=== PATIENT | female | born 1945 | race Caucasian/White ===

== ENCOUNTER 2023-03-11 00:58 | Emergency (ER) | payer OTHER ==
--- OUTSIDE RECORDS SUMMARY | 2023-03-11 01:13 | XMS REPORT | Continuity of Care Document ---
:1945 Author Organization [facility] t Address [address] [place] [address] Care Team Providers Name Role Phone Marco Antonio Vargas MD, Saul Primary Care Physician Charles Bernard Jr Attending Clinician Gay Davis Attending Clinician Sabas Merrill II Attending Clinician IRVIN GUNDERSON Attending Clinician Unavailable LINO CURRAN Attending Clinician Unavailable Irvin Gonzalez Attending Clinician Doctor Unassigned, [place] Attending Clinician Unavailable Mio Watts Attending Clinician Tasneem Goodwin Attending Clinician Donna Henriquez Attending Clinician DONNA HENRIQUEZ Attending Clinician Unavailable Jason Colin Attending Clinician JASON COLIN Attending Clinician Unavailable OSCAR CARABALLO Attending Clinician Unavailable JO DOVE Attending Clinician Unavailable Srinivas Yates Attending Clinician Levi Nguyen Attending Clinician Gerald Michel Attending Clinician Benji Lujna Attending Clinician IRVIN GUNDERSON Admitting Clinician Unavailable OSCAR CARABALLO Admitting Clinician Unavailable Payers Payer Name Policy Type Policy Number Effective Date Expiration Date S chris [place] [id number] 2020 [facility]ARE 00:00:00 [facility] [place] PPO [facility] [id number] 2021 [facility]00 [facility] Problems Condition Condition Condition Status Onset Resolution Last Treating Co mments Source Name Details Category Date Date Treatment Clinician Date R05 - R05 - Diagnosis Active 2021-02-07 Mem oria COUGH COUGH 02-05 13:06:00 l Active 00:01: Luan 02/05/2021 00 BRIA Gonzalez XRAY XRAY Diagnosis Active 2020-10-19 Mem oria Active 2-04 09:11:00 l 09/20/2020 00:00: Ramsey berry 00 [place] K44.9/R74. K44.9/R74 Diagnosis Active 2019-082020-06-19 Memoria 0/R05/J39. .0/R05/J39 0- 09:46:00 l 2 .2 Active 00:00: Luan 06/12/2020 00 [place] Z12.31 - Z12.31 - Diagnosis Active 2020-05-21 Memoria ENCNTR ENCNTR 05-08 10:13:00 l SCREEN SCREEN 00:01: Luan MAMMOGRAM MAMMOGRAM 00 FOR MA FOR MA Active 05/08/2020 BRIA Gonzalez DX; DX; Diagnosis Active 2019-10-10 Mem oria R74.0=NONS R74.0=NONS 2-19 10:54:00 l PECIFIC PECIFIC 00:00: Luan ELEVATION ELEVATION 00 OF LEVEL OF LEVEL Active 10/05/2019 [facility] Rheumatoid Rheumatoid Disease Active Overview : Methodi arthritis arthritis 1-29 Formattin s t without without 00:00: g of this Hospi ta rheumatoid rheumatoid 00 note l factor, factor, might be right right different wrist wrist from the original. Added automatic ally from request for surgery [id number] DRUJ DRUJ Disease Active Overview: Method i (distal (distal 09-[address] radioulnar radioulnar 00:00: g of this Hospita joint) joint) 00 note l arthrosis, arthrosis, might be primary, primary, different right right from the original. Added automatic ally from request for surgery [id number] Strain of Strain of Disease Active Overview: Methodi extensor extensor 09-[address] muscle, muscle, 00:00: g of this Hospi ta fascia and fascia and 00 note l tendon of tendon of might be unspecifie unspecifie different d finger d finger from the at wrist at wrist original. 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 Active 09/21/2018 [facility] NECK, NECK, Diagnosis Active 2018-09-12 Mem oria SHOULDER SHOULDER 09-12 10:15:00 l ARM PAIN ARM PAIN 00:00: Ramsey n Active 00 09/12/2018 [facility] CHEST PAIN CHEST Diagnosis Active 2016-082017-08-07 Memoria PAIN 2- 11:06:00 l Active 00:00: Luan [facility] M67.40 - M67.40 - Diagnosis Active 2016-09-22 Memoria "GANGLION, "GANGLION, 09-15 14:57:00 l UNSPECIFIE UNSPECIFIE 00:01: Glenn shah D SITE" D SITE" 00 Active 09/15/2016 [facility] [place] Anaphylaxi Problem Active [facility] Chest Problem Active [facility] discomfort [facility] No known No known Disease Unive rs active active ity of problems problems [facility] Hypertensi Hypertens Problem Active 2017-08-17 Memoria ve annie 01:07:22 l disorder, disorder, Herm kim systemic systemic arterial arterial (disorder) (disorder) Active Problem 08/17/2017 Medical Group Hypothyroi Hypothyro Problem Active 2017-08-10 Memoria dism idism 04:04:15 l (disorder) (disorder) He rmann Active Problem 08/10/2017 [facility] [place] Acute Acute Problem Active 2022-07-17 Memor ia laryngitis laryngitis 09:00:50 l (disorder) (disorder) He rmann Active Problem 07/17/2022 Medical Group,[facility] Primary Care [place] Acute Acute Problem Active 2022-07-17 Memor ia pharyngiti pharyngiti 09:00:50 l s s Luan (disorder) (disorder) Active Problem 07/17/2022 [facility] Primary Care [place] Angina Angina Problem Active 2022-07-17 Demetrio jaime (disorder) (disorder) 09:00:50 l Active [place] Problem 07/17/2022 [facility] Oste[facility]r Osteoarth Problem Active 2022-07-17 Memoria itis of ritis of 09:00:50 l hip hip Luan (disorder) (disorder) Active Problem 07/17/2022 [facility] BRIA [facility] Osteoarthr Osteoarth Problem Active 2022-07-17 Memoria itis of ritis of 09:00:50 l knee knee Luan (disorder) (disorder) Active Problem 07/17/2022 [facility] Foul Foul Problem Active 2022-07-17 Memor ia smelling smelling 09:00:50 l urine urine [place] (finding) (finding) Active Problem 07/17/2022 Medical Group,[facility], [facility] Gastroesop Problem Active 2022-07-17 [facility] Gastroesop 09:00:50 l reflux hageal [place] disease reflux with disease esophagiti with s esophagiti (disorder) s (disorder) Active Problem 07/17/2022 Medical Group,[facility], [facility] History of History Problem Active 2022-07-17 Memoria - gastric of - 09:00:50 l ulcer gastric [place] (context-d ulcer ependent (context-d category) ependent category) Active Problem 07/17/2022 Medical Group,[facility], [facility] Hypertensi Hypertens Problem Active 2022-07-17 Memoria ve heart annie heart 09:00:50 l disease disease [place] (disorder) (disorder) Active Problem 07/17/2022 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 Medical Group,[facility], [facility] 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 [facility] yroidism Hypoparath 09:00:50 l (disorder) yroidism Herm kim (disorder) Active Problem 07/17/2022 Medical Group,[facility], [facility] Immunosupp Problem Active 2022-07-17 M emoria ression Immunosupp 09:00:50 l (finding) ression Ramsey n (finding) Active Problem 07/17/2022 Medical Group,[facility] Increased Problem Active 2022-07-17 Me moria frequency Increased 09:00:50 l of frequency Luan urination of (finding) urination (finding) Active Problem 07/17/2022 [facility] Group,[facility] Influenza- Influenza Problem Active 2022-07-17 Memoria like -like 09:00:50 l symptoms symptoms Ramsey n (finding) (finding) Active Problem 07/17/2022 [facility] Primary Care [place] Mixed Mixed Problem Active 2022-07-17 Memor ia hyperlipid hyperlipid 09:00:50 l emia emia [place] (disorder) (disorder) Active Problem 07/17/2022 [facility] Obesity Obesity Problem Active 2022-07-17 M emoria (disorder) (disorder) 09:00:50 l Active Luan Problem 07/17/2022 [facility] Postherpet Problem Active 2022-07-17 M emoria ic Postherpet 09:00:50 l neuralgia ic Luan (disorder) neuralgia (disorder) Active Problem 07/17/2022 Medical Group,[facility] Post-opera Problem Active 2022-07-17 M [facility] tive Post-opera 09:00:50 l hypothyroi tive Ramsey n dism hypothyroi (disorder) dism (disorder) Active Problem 07/17/2022 [facility], BRIA [facility] Recurrent Recurrent Problem Active 2022-07-17 Memoria urinary urinary 09:00:50 l tract tract Luan infection infection (disorder) (disorder) Active Problem 07/17/2022 Medical Group,[facility] Rheumatoid Rheumatoi Problem Active 2022-07-17 Memoria arthritis d 09:00:50 l (disorder) arthritis Her malloy (disorder) Active Problem 07/17/2022 [facility], BRIA [facility] Seasonal Seasonal Problem Active 2022-07-17 Memoria allergic allergic 09:00:50 l rhinitis rhinitis Ramsey n (disorder) (disorder) Active [facility]17[facility]20[facility] Spinal Spinal Problem Active 2022-07-17 Demetrio jaime stenosis stenosis 09:00:50 l in in Luan cervical cervical region region (disorder) (disorder) Active Problem 07/17/2022 [facility], BRIA [facility] Urinary Urinary Problem Active 2022-07-17 Me moria incontinen incontinen 09:00:50 l ce ce [place] (finding) (finding) Active Problem 07/17/2022 Medical Group,[facility] Varicose Varicose Problem Active 2022-07-17 Memoria veins of veins of 09:00:50 l lower lower Luan extremity extremity (disorder) (disorder) Active Problem 07/17/2022 Medical Group, Dave Gonzalez [place], Dave Scott [facility] Encounter Problem 2020-05-23 Me moria for Encounter 22:52:29 l screening for [place] mammogram screening for mammogram malignant for neoplasm malignant of breast neoplasm of breast 05/23/2020 BRIA Gonzalez Impingemen Impingeme Problem 2019-04-06 Memoria t syndrome nt 11:23:26 l of left syndrome [place] shoulder of left shoulder 04/06/2019 Dave Gonzalez Primary Primary Problem 2019-04-06 Ma moriashish osteoarthr osteoarthr 11:23:26 l itis, left itis, left He rmann shoulder shoulder 04/06/2019 BRIA Gonzalez Abnormal Abnormal Problem 2019-04-06 Memoria findings findings 11:23:26 l on on [place] diagnostic diagnostic imaging of imaging of other other specified specified body body structures structures 9 BRIA [place] Spinal Spinal Problem 2019-04-01 Demetrio jaime stenosis, stenosis, 12:20:48 l site site [place] unspecifie unspecifie d d 04/01/2019 [facility] Other long Other Problem 2019-04-01 emoria term prison 12:20:48 l (current) (current) Herm kim drug drug therapy therapy 04/01/2019 [facility] 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 Problem 2019-04-01 Memoria (current) (current) 12:20:48 l use of use of [place] aspirin aspirin 04/01/2019 [facility] Allergy Allergy Problem 2019-04-01 Ma moria status to status to 12:20:48 l sulfonamid sulfonamid He rmann es status es status 04/01/2019 [facility] Fever Fever Problem Resolve 2022-05-29 Mem oria (finding) (finding) d 02:44:13 l Resolved Luan Problem 05/29/2022 Medical Group,[facility], BRIA Gonzalez Sore Sore Problem Resolve 2022-05-29 Demetrio jaime throat throat d 02:44:13 l symptom symptom [place] (finding) (finding) Resolved Problem 05/29/2022 Medical Group, BRIA Gonzalez History of Past Illness Condition Condition Condition Status Onset Resolution Last Treating Co mments Source Name Details Category Date Date Treatment Clinician Date General General Diagnosis 2021-082022-07-17 2022-07-17 Memoria finding of finding of 09-13 09:00:50 09:00:50 l observatio observatio 18:00: He rmann n of n of 00 patient patient (finding) (finding) 2022 Diagnosis 07/17/2022 Medical Group Acute Acute Diagnosis 2021-082022-07-17 2022-07-17 Memoria bronchitis bronchitis 09-13 09:00:50 09:00:50 l (disorder) (disorder) 17:21: He rmann 2022 00 Diagnosis 07/17/2022 Medical Group,[facility] Dave Scott [facility] Primary [facility] [place] Mixed Mixed Problem 2021-10-25 2021-10-25 M emoria hyperlipid hyperlipid 10-22 02:36:12 02:36:12 l emia emia 22:00: Luan 10/22/2021 00 Medical Group Unspecifie Unspecifi Problem 2021-10-25 2021-10-25 Memoria d abnormal ed 10-22 02:36:12 02:36:12 l findings abnormal 21:59: Ramsey n in urine findings 00 in urine 10/22/2021 10/25/2021 Medical Group Angina Angina Problem 2021-10-25 2021-10-25 Memoria pectoris, pectoris, 10-22 02:36:12 02:36:12 l unspecifie unspecifie 21:59: He rmann d d 00 10/22/2021 10/25/2021 [facility] Group Hypertensi Hypertens Problem 2021-10-25 2021-10-25 Memoria ve heart annie heart 10-22 02:36:12 02:36:12 l disease disease 21:59: [place] without without 00 heart heart failure failure 10/22/2021 10/25/2021 Medical Group Postproced Postproce Problem 2021-10-25 2021-10-25 Memoria ural dural 3-08 02:36:12 02:36:12 l hypothyroi hypothyroi 21:59: He rmann dism dism 00 10/22/2021 10/25/2021 Medical Group Rheumatoid Rheumatoi Problem 2021-10-25 2021-10-25 Memoria arthritis, d 3- 02:36:12 02:36:12 l unspecifie arthritis, 21:59: He rmann d unspecifie 00 d 10/22/2021 10/25/2021 [facility] Postproced Postproce Problem 2021-10-25 2021-10-25 Memoria ural dural 10-22 02:36:12 02:36:12 l hypoparath hypoparath 21:59: He rmann yroidism yroidism 00 10/22/2021 10/25/2021 Medical Group Immunodefi Immunodef Problem 2021-10-25 2021-10-25 Memoria ciency, iciency, 10-22 02:36:12 02:36:12 l unspecifie unspecifie 21:59: He rmann d d 00 10/22/2021 10/25/2021 Medical Group Cystocele, Cystocele Problem 2021-10-25 2021-10-25 Memoria unspecifie , 3 02:36:12 02:36:12 l d unspecifie 21:48: Ramsey n d 00 10/22/2021 10/25/2021 Medical Group Other Other Problem 2021-10-25 2021-10-25 Memoria postherpet postherpet 10-22 02:36:12 02:36:12 l ic nervous ic nervous 21:47: He rmann system system 00 involvemen involvemen t t 10/22/2021 10/25/2021 Medical Group Other Other Problem 2020-05-05 2020-05-05 Memoria seasonal seasonal 05-04 22:10:32 22:10:32 l allergic allergic 17:00: Ramsey berry rhinitis rhinitis 00 05/04/2020 05/05/2020 Medical Group Other Other Problem 2020-05-05 2020-05-05 Memoria chronic chronic 05-03 22:10:32 22:10:32 l sinusitis sinusitis 17:00: Laly alvarez 05/03/2020 00 05/05/2020 Medical Group Pain in Pain in Problem 2018-082019-08-10 2019-08-10 Memoria right hand right hand 10-09 22:29:50 22:29:50 l 08/08/2019 18:00: Ramsey berry 08/10/2019 00 [facility] Pain in Pain in Problem 2018-082019-08-10 2019-08-10 Memoria right right 10-09 22:29:50 22:29:50 l wrist wrist 18:00: Luan 08/08/2019 00 08/10/2019 [facility] Complete Complete Problem 2019-04-06 2019-04-06 Memoria rotator rotator 2 11:23:26 11:23:26 l cuff tear cuff tear 06:02: Herm kim or rupture or rupture 07 of left of left shoulder, shoulder, not not specified specified as as traumatic traumatic 09/21/2018 9 BRIA [place] Impingemen Impingeme Problem 2018-2019-04-01 2019-04-01 Memoria t syndrome nt 09-12 12:20:48 12:20:48 l of syndrome 06:00: Luan unspecifie of 00 d shoulder unspecifie d shoulder 09/12/2018 9 [facility] Chest Chest Problem 2016-082017-08-10 2017-08-10 M emoria pain, pain, 10-08 04:04:15 04:04:15 l unspecifie unspecifie 06:00: He rmann d d 00 08/07/2017 7 [facility] Headache Headache Problem 2016-082017-08-10 2017-08-10 Memoria 08/07/201710-08 04:04:15 04:04:15 l 08/10/2017 06:00: Ramsey berry 00 [place] Allergies, Adverse Reactions, Alerts Allergy Allergy Status Severity Reaction(s) Onset Inactive Treating Comm ents Source Name Type Date Date Clinician Sulfa Allergy Active [facility] Antibiot e 00 Medical ics[facility] Center SULFA Drug Active Low Hives Univers (SULFONA Class 1-28 ity of MIDE 00:00: [place] ANTIBIOT 00 Medical ICS) Branch Sulfa Drug Active Rash Univers (Sulfona Allergy 1-28 ity of mide 00:00: [place] Antibiot 00 Medical ics) Branch Sulfa Propensi Active GI Methodi (Sulfona ty to Intolerance 1-28 st mide adverse 00:00: Hospita Antibiot reaction 00 l ics) s to drug sulfa sulfa Active Memoria drugs drugs l Luan Macrobid Macrobid Active Memori a l Luan Sulfa DA Active [facility] Patient Antibiot Medical ics[facility] Family History Family Member Diagnosis Comments Start Date Stop Date Source Natural father Cancer [facility] Natural mother Cancer [facility] Social History Social Habit Start Date Stop Date Quantity Comments Source Gender identity 2019-09-10 Identifies as Method ist 17:57:50 female gender Hospital (finding) Sexual orientation 2019-09-10 Heterosexual Meth odist 17:57:50 (finding) Hospital History of tobacco [facility] use Patient Medica [facility] Exposure to Not sure University of SARS-CoV-2 (event) [facility] Alcohol intake 2019-10-12 2019-10-12 Lifetime Evangelical 00:00:00 00:00:00 non-drinker Hospital (finding) Tobacco use and 2019-09-13 2019-09-13 Smokeless tobacco Me thodist exposure 00:00:00 00:00:00 non-user Hospital History of Social 2019-09-13 2019-09-[address] function 00:00:00 00:00:00 Hospital Sex Assigned At 1945 [address] [facility] 00:[facility] Med[facility] Center Smoking Status Start Date Stop Date Source Unknown if ever smoked [facility] Tobacco smoking status [facility] Medications Ordered Filled Start Stop Current Ordering Indication Dosage Frequency Signature Comments Components Source Medication Medication Date Date Medication? Clinician (SIG) Name Name joann 2021-08 Yes See Memori a n 250 mg 09-13 Instructio l oral tablet 17:43: ns, Take 2 Luan 00 tablets by mouth the first day then 1 tablet by mouth daily on days 2-5., X 5 day, # 6 tab, 0 Refill(s), Pharmacy: [facility], 154.94, cm, 07/14/22 11:08:00 HEALTH EDUCATOR, Height, 80.511, kg, 07/14/22 11:08:00 HEALTH EDUCATOR, Weight azithromyci 2021-08 Yes See Memori a n 250 mg 09-13 Instructio l oral tablet 17:43: ns, Take 2 Luan 00 tablets by mouth the first day then 1 tablet by mouth daily on days 2-5., X 5 day, # 6 tab, 0 Refill(s), Pharmacy: [facility], 154.94, cm, 07/14/22 11:08:00 HEALTH EDUCATOR, Height, 80.511, kg, 07/14/22 11:08:00 HEALTH EDUCATOR, Weight Tessalon 2021-08 Yes 200 mg = 1 Mem oria 200 mg oral 09-13 cap, PO, l capsule 17:25: TID, X 10 Adry nn 00 day, # 30 cap, 0 Refill(s), Pharmacy: [facility], 154.94, cm, 07/14/22 11:08:00 HEALTH EDUCATOR, Height, 80.511, kg, 07/14/22 11:08:00 HEALTH EDUCATOR, Weight Medrol 2021-08 Yes See Memoria Dosepak 4 09-13 Instructio l mg oral 17:25: ns, PO, Luan tablet 00 Take by mouth as directed on label., X 6 day, # 21 tab, 0 Refill(s), Pharmacy: [facility], 154.94, cm, 07/14/22 11:08:00 HEALTH EDUCATOR, Height, 80.511, kg, 07/14/22 11:08:00 HEALTH EDUCATOR, Weight albuterol 2021-08 Yes 2 puff, Memor ia 90 mcg/inh 09-13 INHALER, l inhalation 17:25: Q6H, PRN Her malloy aerosol 00 for SOB/cough, # 8 gm, 0 Refill(s), Pharmacy: [facility], 154.94, cm, 07/14/22 11:08:00 HEALTH EDUCATOR, Height, 80.511, kg, 07/14/22 11:08:00 HEALTH EDUCATOR, Weight Tessalon 2021-08 Yes 200 mg = 1 Mem oria 200 mg oral 09-13 cap, PO, l capsule 17:25: TID, X 10 Adry nn 00 day, # 30 cap, 0 Refill(s), Pharmacy: [facility] [place], 154.94, cm, 07/14/22 11:08:00 HEALTH EDUCATOR, Height, 80.511, kg, 07/14/22 11:08:00 HEALTH EDUCATOR, Weight Medrol 2021-08 Yes See Memoria Dosepak 4 09-13 Instructio l mg oral 17:25: ns, PO, [place] tablet 00 Take by mouth as directed on label., X 6 day, # 21 tab, 0 Refill(s), Pharmacy: [facility] [place], 154.94, cm, 07/14/22 11:08:00 HEALTH EDUCATOR, Height, 80.511, kg, 07/14/22 11:08:00 HEALTH EDUCATOR, Weight albuterol 2021-08 Yes 2 puff, Memor ia 90 mcg/inh 09-13 INHALER, l inhalation 17:25: Q6H, PRN Her malloy aerosol 00 for SOB/cough, # 8 gm, 0 Refill(s), Pharmacy: [facility], 154.94, cm, 07/14/22 11:08:00 HEALTH EDUCATOR, Height, 80.511, kg, 07/14/22 11:08:00 HEALTH EDUCATOR, Weight carvedilol 2021-08 Yes 25 mg = 1 Me moria 25 mg oral 09-13 tab, PO, l tablet 17:05: BID, 0 Luan 00 Refill(s) carvedilol 2021-08 Yes 25 mg = 1 Me moria 25 mg oral 09-13 tab, PO, l tablet 17:05: BID, 0 [place] 00 Refill(s) Breo 2021-08 Yes 0 Memoria Ellipta 100 0-10 Refill(s) l mcg-25 mcg 15:45: [place] inhalation 00 powder Breo 2021-08 Yes 0 Memoria Ellipta 100 0-10 Refill(s) l mcg-25 mcg 15:45: [place] inhalation 00 powder calcitriol Yes = 1 cap, Mem oria 0.5 mcg 6-06 PO, Daily, l oral 18:48: # 90 cap, Luan capsule 00 3 Refill(s), Pharmacy: [facility], 154.94, cm, 12/18/21 13:14:00 CDT, Height, 79.773, kg, 12/18/21 13:14:00 CDT, Weight calcitriol Yes = 1 cap, Mem oria 0.5 mcg 6-06 PO, Daily, l oral 18:48: # 90 cap, [place] capsule 00 3 Refill(s), Pharmacy: [facility], 154.94, cm, 12/18/21 13:14:00 CDT, Height, 79.773, kg, 12/18/21 13:14:00 CDT, Weight Vantin 200 0 No 200 mg = 1 M emoria mg oral 5-03 tab, PO, l tablet 22:38: Q12H, X 10 Adry nn 00 day, # 20 tab, 0 Refill(s), Pharmacy: [facility], 154.94, cm, 10/22/21 15:20:00 HEALTH EDUCATOR, Height, 82.301, kg, 10/22/21 15:20:00 HEALTH EDUCATOR, Weight Vantin 200 0 No 200 mg = 1 M emoria mg oral 5-03 tab, PO, l tablet 22:38: Q12H, X 10 Adry nn 00 day, # 20 tab, 0 Refill(s), Pharmacy: [facility], 154.94, cm, 10/22/21 15:20:00 HEALTH EDUCATOR, Height, 82.301, kg, 10/22/21 15:20:00 HEALTH EDUCATOR, Weight Estrace 0 Yes See Memoria Vaginal 4-11 Instructio l Cream 0.1 21:10: ns, apply Her malloy mg/g 00 pea size amount to urethra and vagina nightly for 2 weeks and then 3xweek. May dispose of applicator ., # 43 gm, 3 Refill(s), Pharmacy: [facility], 154.94, cm, 10/22/21 15:20:00 HEALTH EDUCATOR, Height, 82.301, kg, 10/22/21 1... Estrace 2021-0 Yes See Memoria Vaginal 4-11 Instructio l Cream 0.1 21:10: ns, apply Her malloy mg/g 00 pea size amount to urethra and vagina nightly for 2 weeks and then 3xweek. May dispose of applicator ., # 43 gm, 3 Refill(s), Pharmacy: [facility], 154.94, cm, 10/22/21 15:20:00 HEALTH EDUCATOR, Height, 82.301, kg, 10/22/21 1... Amoxicillin 2021-0 Yes 875 mg = 1 Memoria 875 MG / 3-11 tab, PO, l Clavulanate 11:21: BID, X 10 H ermann 125 MG Oral 00 day, # 20 Tablet tab, 0 [Augmentin Refill(s), 875-mg] Pharmacy: [facility], 154.94, cm, 10/22/21 15:20:00 HEALTH EDUCATOR, Height, 82.301, kg, 10/22/21 15:20:00 HEALTH EDUCATOR, Weight Amoxicillin 0 Yes 875 mg = 1 Memoria 875 MG / 3-11 tab, PO, l Clavulanate 11:21: BID, X 10 H ermann 125 MG Oral 00 day, # 20 Tablet tab, 0 [Augmentin Refill(s), 875-mg] Pharmacy: [facility], 154.94, cm, 10/22/21 15:20:00 HEALTH EDUCATOR, Height, 82.301, kg, 10/22/21 15:20:00 HEALTH EDUCATOR, Weight Cranberry 0 Yes 1 tab, PO, Me moria oral tablet 3-08 Daily, # l 22:06: 90 tab, 4 [place] 00 Refill(s), Pharmacy: [facility], Any preferred brand cranberry concentrat e in any formulatio n is acceptable to substitute , 154.94, cm, 10/22/21 15:20:00 HEALTH EDUCATOR, Height, 82.301, kg, 10/22/21 15:20:00 HEALTH EDUCATOR, Weight Cranberry 0 Yes 1 tab, PO, Me moria oral tablet 3-08 Daily, # l 22:06: 90 tab, 4 [place] 00 Refill(s), Pharmacy: [facility], Any preferred brand cranberry concentrat e in any formulatio n is acceptable to substitute , 154.94, cm, 10/22/21 15:20:00 HEALTH EDUCATOR, Height, 82.301, kg, 10/22/21 15:20:00 HEALTH EDUCATOR, Weight ethacrynic 2021-0 Yes 25 mg = 1 Me moria acid 25 mg 3-08 tab, PO, l oral tablet 21:33: BID, # 60 H ermann 00 tab, 0 Refill(s) ethacrynic 2021-0 Yes 25 mg = 1 Me moria acid 25 mg 3-08 tab, PO, l oral tablet 21:33: BID, # 60 H ermann 00 tab, 0 Refill(s) flecainide 2021-0 Yes 100 mg = 1 M emoria 100 mg oral 3-08 tab, PO, l tablet 21:31: Q12H, 0 [place] 00 Refill(s) flecainide 2021-0 Yes 100 mg = 1 M emoria 100 mg oral 3-08 tab, PO, l tablet 21:31: Q12H, 0 [place] 00 Refill(s) gabapentin 2021-0 Yes 100 mg = 1 M emoria 100 MG Oral 3-08 cap, PO, l Capsule 21:28: TID, 0 [place] 00 Refill(s) gabapentin 2021-0 Yes 100 mg = 1 M emoria 100 MG Oral 3-08 cap, PO, l Capsule 21:28: TID, 0 [place] 00 Refill(s) Ampicillin Ampicillin Yes [address] [facility] Trihydrate Trihydrate 2-24 Daily [facility] 17:58: [facility] Epinephrine Epinephrine Yes .[address] [facility] 2-24 needed for [facility] 17:58: Anaphylaxi Patient 00 s [facility] Prednisone Prednisone 0 Yes [address] [facility] 2-24 [facility] 17:[facility]: [facility] iopamidol 0 2021- No [id number] 130mL 130 mL, Univers (ISOVUE 09-12 Intravenou ity o f 370-500 mL) 23:00: 21:45 s, ONCE, 1 [place] injection 00 :00 dose, On Medica l 130 mL [place] [facility] 09/12/21 at 1700, Routine Nitrofurant 2021-0 Yes [id number] Take 1 Univers oin&Nit. 1-11 9100 capsule by ity o f Macrocryst 00:00: mouth [place] 100 mg 00 twice per Medical capsule day with Branch meal for seven (7) days. After completion take 1 tablet by mouth nightly for prophylaxi s. Nitrofurant 0 Yes [id number] Take 1 [facility] oin&Nit. 1-11 9100 capsule by ity o f Macrocryst 00:00: mouth [place] 100 mg 00 twice per Medical capsule day with Branch meal for seven (7) days. After completion take 1 tablet by mouth nightly for prophylaxi s. Nitrofurant Yes [id number] Take 1 [facility] oin&Nit. 1-11 9100 capsule by ity o f Macrocryst 00:00: mouth [place] 100 mg 00 twice per Medical capsule day with Branch meal for seven (7) days. After completion take 1 tablet by mouth nightly for prophylaxi s. Nitrofurant Yes [id number] Take 1 [facility] oin&Nit. 1-11 9100 capsule by ity o f Macrocryst 00:00: mouth [place] 100 mg 00 twice per Medical capsule day with Branch meal for seven (7) days. After completion take 1 tablet by mouth nightly for prophylaxi s. Nitrofurant Yes [id number] Take 1 Univers oin&Nit. 1-11 9100 capsule by ity o f Macrocryst 00:00: mouth [place] 100 mg 00 twice per Medical capsule day with Branch meal for seven (7) days. After completion take 1 tablet by mouth nightly for prophylaxi s. carvediloL 2020-08 Yes 25mg 25 mg 2 Univ ers 25 mg 2-20 (two) ity of tablet 15:34: times [place] 02 daily. Medical Branch levothyroxi 2020-08 Yes 150ug Take 150 U nivers ne 150 mcg 2-20 mcg by ity of tablet 15:34: mouth [place] 02 every Medical morning. Branch calcitrioL 2020-08 Yes .5ug 0.5 mcg Univ ers 0.5 mcg 2-20 daily. ity of capsule 15:34: [place] 02 Medical Branch omeprazole 2020-08 Yes 40mg 40 mg Univer s 40 mg 2-20 daily. ity of capsule 15:34: [place] 02 Medical Branch tiZANidine 2020-08 Yes 4mg Take 4 mg Un familia 4 mg tablet 2-20 by mouth ity of 15:34: every [place] 02 evening. Medical Branch carvediloL 2020-08 Yes 25mg 25 mg 2 Univ ers 25 mg 2-20 (two) ity of tablet 15:34: times [place] 02 daily. Medical Branch levothyroxi 2020-08 Yes 150ug Take 150 U nivers ne 150 mcg 2-20 mcg by ity of tablet 15:34: mouth [place] 02 every Medical morning. Branch calcitrioL 2020-08 Yes .5ug 0.5 mcg Univ ers 0.5 mcg 2-20 daily. ity of capsule 15:34: [place] 02 Medical [facility] omeprazole 2020-08 Yes 40mg 40 mg Univer s 40 mg 2-20 daily. ity of capsule 15:34: [place] 02 Medical Branch tiZANidine 2020-08 Yes 4mg Take 4 mg Un familia 4 mg tablet 2-20 by mouth ity of 15:34: every [place] 02 evening. Medical Branch carvediloL 2020-08 Yes 25mg 25 mg 2 Univ ers 25 mg 2-20 (two) ity of tablet 15:34: times [place] 02 daily. Medical Branch levothyroxi 2020-08 Yes 150ug Take 150 U nivers ne 150 mcg 2-20 mcg by ity of tablet 15:34: mouth [place] 02 every Medical morning. Branch calcitrioL 2020-08 Yes .5ug 0.5 mcg Univ ers 0.5 mcg 2-20 daily. ity of capsule 15:34: [place] 02 Medical Branch omeprazole 2020-08 Yes 40mg 40 mg Univer s 40 mg 2-20 daily. ity of capsule 15:34: [place] 02 Medical [facility] tiZANidine 2020-08 Yes 4mg Take 4 mg Un familia 4 mg tablet 2-20 by mouth ity of 15:34: every [place] 02 evening. Medical Branch carvediloL 2020-08 Yes 25mg 25 mg 2 Univ ers 25 mg 2-20 (two) ity of tablet 15:34: times [place] 02 daily. Medical Branch levothyroxi 2020-08 Yes 150ug Take 150 U nivers ne 150 mcg 2-20 mcg by ity of tablet 15:34: mouth [place] 02 every Medical morning. Branch calcitrioL 2020-08 Yes .5ug 0.5 mcg Univ ers 0.5 mcg 2-20 daily. ity of capsule 15:34: 02 Medical Branch omeprazole 2020-08 Yes 40mg 40 mg Univer s 40 mg 2-20 daily. ity of capsule 15:34: [place] 02 Medical Branch tiZANidine 2020-08 Yes 4mg Take 4 mg Un familia 4 mg tablet 2-20 by mouth ity of 15:34: every [place] 02 evening. Medical Branch carvediloL 2020-08 Yes 25mg 25 mg 2 Univ ers 25 mg 2-20 (two) ity of tablet 15:34: times [place] 02 daily. Medical Branch levothyroxi 2020-08 Yes 150ug Take 150 U nivers ne 150 mcg 2-20 mcg by ity of tablet 15:34: mouth [place] 02 every Medical morning. Branch calcitrioL 2020-08 Yes .5ug 0.5 mcg Univ ers 0.5 mcg 2-20 daily. ity of capsule 15:34: Medical Branch omeprazole 2020-08 Yes 40mg 40 mg Univer s 40 mg 2-20 daily. ity of capsule 15:34: Medical Branch tiZANidine 2020-08 Yes 4mg Take 4 mg Un familia 4 mg tablet 2-20 by mouth ity of 15:34: every [place] 02 evening. Medical Branch carvediloL 2020-08 Yes 25mg 25 mg 2 Univ ers 25 mg 2-20 (two) ity of tablet 15:34: times [place] 02 daily. Medical Branch levothyroxi 2020-08 Yes 150ug Take 150 U nivers ne 150 mcg 2-20 mcg by ity of tablet 15:34: mouth [place] 02 every Medical morning. Branch calcitrioL 2020-08 Yes .5ug 0.5 mcg Univ ers 0.5 mcg 2-20 daily. ity of capsule 15:34: Medical Branch omeprazole 2020-08 Yes 40mg 40 mg Univer s 40 mg 2-20 daily. ity of capsule 15:34: 02 Medical Branch tiZANidine 2020-08 Yes 4mg Take 4 mg Un familia 4 mg tablet 2-20 by mouth ity of 15:34: every [place] 02 evening. Medical Branch carvediloL 2020-08 Yes 25mg 25 mg 2 Univ ers 25 mg 2-20 (two) ity of tablet 15:34: times [place] 02 daily. Medical Branch levothyroxi 2020-08 Yes 150ug Take 150 U nivers ne 150 mcg 2-20 mcg by ity of tablet 15:34: mouth [place] 02 every Medical morning. Branch calcitrioL 2020-08 Yes .5ug 0.5 mcg Univ ers 0.5 mcg 2-20 daily. ity of capsule 15:34: Medical Branch omeprazole 2020-08 Yes 40mg 40 mg Univer s 40 mg 2-20 daily. ity of capsule 15:34: [place] [facility] tiZANidine 2020-08 Yes 4mg Take 4 mg Un familia 4 mg tablet 2-20 by mouth ity of 15:34: every [place] 02 evening. Medical Branch carvediloL 2020-08 Yes 25mg 25 mg 2 Univ ers 25 mg 2-20 (two) ity of tablet 15:34: times [place] 02 daily. Medical Branch levothyroxi 2020-08 Yes 150ug Take 150 U nivers ne 150 mcg 2-20 mcg by ity of tablet 15:34: mouth [place] 02 every Medical morning. Branch calcitrioL 2020-08 Yes .5ug 0.5 mcg Univ ers 0.5 mcg 2-20 daily. ity of capsule 15:34: Medical Branch omeprazole 2020-08 Yes 40mg 40 mg Univer s 40 mg 2-20 daily. ity of capsule 15:34: Medical Branch tiZANidine 2020-08 Yes 4mg Take 4 mg Un familia 4 mg tablet 2-20 by mouth ity of 15:34: every [place] 02 evening. Medical Branch levothyroxi 2020-08 Yes See Memori a ne 150 mcg 1-29 Instructio l (0.15 mg) 18:48: ns, One Adry nn oral tablet 00 tab PO daily except for skipping tab one day per week, # 78 tab, 3 Refill(s), Pharmacy: [facility] [place], 154.94, cm, 04/20/20 10:56:00 CDT, Height, 77.727, kg, 04/20/20 10:56:00 CDT, Weight levothyroxi 2020-08 Yes See Memori a ne 150 mcg 1-29 Instructio l (0.15 mg) 18:48: ns, One Adry nn oral tablet 00 tab PO daily except for skipping tab one day per week, # 78 tab, 3 Refill(s), Pharmacy: [facility] [place], 154.94, cm, 04/20/20 10:56:00 CDT, Height, 77.727, kg, 04/20/20 10:56:00 CDT, Weight flecainide 2020-08 Yes 100mg 100 mg 2 Un familia 100 mg 1-04 (two) ity of tablet 00:00: times [place] 00 daily. Medical Branch flecainide 2020-08 Yes 100mg 100 mg 2 Un familia 100 mg 1-04 (two) ity of tablet 00:00: times [place] 00 daily. Medical Branch flecainide 2020-08 Yes 100mg 100 mg 2 Un familia 100 mg 1-04 (two) ity of tablet 00:00: times [place] 00 daily. Medical Branch flecainide 2020-08 Yes 100mg 100 mg 2 Un familia 100 mg 1-04 (two) ity of tablet 00:00: times [place] 00 daily. Medical Branch flecainide 2020-08 Yes 100mg 100 mg 2 Un familia 100 mg 1-04 (two) ity of tablet 00:00: times [place] 00 daily. Medical Branch flecainide 2020-08 Yes 100mg 100 mg 2 Un familia 100 mg 1-04 (two) ity of tablet 00:00: times [place] 00 daily. Medical Branch flecainide 2020-08 Yes 100mg 100 mg 2 Un familia 100 mg 1-04 (two) ity of tablet 00:00: times [place] 00 daily. Medical Branch flecainide 2020-08 Yes 100mg 100 mg 2 Un familia 100 mg 1-04 (two) ity of tablet 00:00: times [place] 00 daily. Medical Branch hydroCHLORO 2020-08 Yes 25mg Take 25 mg Univers thiazide 25 1-03 by mouth ity of mg tablet 00:00: daily. Medical Branch hydroCHLORO 2020-08 Yes 25mg Take 25 mg [facility] thiazide 25 1-03 by mouth ity of mg tablet 00:00: daily. Medical Branch hydroCHLORO 2020-08 Yes 25mg Take 25 mg Univers thiazide 25 1-03 by mouth ity of mg tablet 00:00: daily. [place] [facility] hydroCHLORO 2020-08 Yes 25mg Take 25 mg Univers thiazide 25 1-03 by mouth ity of mg tablet 00:00: daily. [place] [facility] hydroCHLORO 2020-08 Yes 25mg Take 25 mg Univers thiazide 25 1-03 by mouth ity of mg tablet 00:00: daily. [place] [facility] hydroCHLORO 2020-08 Yes 25mg Take 25 mg Univers thiazide 25 1-03 by mouth ity of mg tablet 00:00: daily. [place] [facility] hydroCHLORO 2020-08 Yes 25mg Take 25 mg Univers thiazide 25 1-03 by mouth ity of mg tablet 00:00: daily. [place] [facility] hydroCHLORO 2020-08 Yes 25mg Take 25 mg Univers thiazide 25 1-03 by mouth ity of mg tablet 00:00: daily. [place] [facility] Yes INHALE ONE Univers ELLIPTA 9-28 (1) ity of 100-25 00:00: PUFF(S) [place] mcg/dose 00 ONCE A Medical DsDv DAY. [facility] Yes INHALE ONE Univers ELLIPTA 9-28 (1) ity of 100-25 00:00: PUFF(S) [place] mcg/dose 00 ONCE A Medical DsDv DAY. [facility] Yes INHALE ONE Univers ELLIPTA 9-28 (1) ity of 100-25 00:00: PUFF(S) [place] mcg/dose 00 ONCE A Medical DsDv DAY. [facility] Yes INHALE ONE Univers ELLIPTA 9-28 (1) ity of 100-25 00:00: PUFF(S) [place] mcg/dose 00 ONCE A Medical DsDv DAY. [facility] Yes INHALE ONE Univers ELLIPTA 9-28 (1) ity of 100-25 00:00: PUFF(S) [place] mcg/dose 00 ONCE A Medical DsDv DAY. [facility] Yes INHALE ONE Univers ELLIPTA 9-28 (1) ity of 100-25 00:00: PUFF(S) [place] mcg/dose 00 ONCE A Medical DsDv DAY. [facility] 2021-0 Yes INHALE ONE Univers ELLIPTA 9-28 (1) ity of 100-25 00:00: PUFF(S) [place] mcg/dose 00 ONCE A Medical DsDv DAY. Branch [place] Yes INHALE ONE Univers ELLIPTA 9-28 (1) ity of 100-25 00:00: PUFF(S) [place] mcg/dose 00 ONCE A Medical DsDv DAY. Branch Azithromyci No See Memori a n 5 Day 6-21 Instructio l Dose Pack 19:44: ns, Take 2 He rmann 250 mg oral 00 tablets by tablet mouth the first day then 1 tablet by mouth days 2-5., X 5 day, # 6 tab, 0 Refill(s), Pharmacy: [facility] [place], 154.94, cm, 04/20/20 10:56:00 CDT, Height, 77.727, kg, 04/20/20 10:56:00 CDT, Weight Amoxicillin Yes 875 mg = 1 Memoria 875 MG / 6-21 tab, PO, l Clavulanate 19:44: BID, with H ermann 125 MG Oral 00 food or Tablet milk, X 10 [Augmentin day, # 20 875-mg] tab, 0 Refill(s), Pharmacy: [facility] [place], 154.94, cm, 04/20/20 10:56:00 CDT, Height, 77.727, kg, 04/20/20 10:56:00 CDT, Weight Azithromyci No See Memori a n 5 Day 6- Instructio l Dose Pack 19:44: ns, Take 2 He rmann 250 mg oral 00 tablets by tablet mouth the first day then 1 tablet by mouth days 2-5., X 5 day, # 6 tab, 0 Refill(s), Pharmacy: [facility] [place], 154.94, cm, 04/20/20 10:56:00 CDT, Height, 77.727, kg, 04/20/20 10:56:00 CDT, Weight Amoxicillin Yes 875 mg = 1 Memoria 875 MG / 6-21 tab, PO, l Clavulanate 19:44: BID, with H ermann 125 MG Oral 00 food or Tablet milk, X 10 [Augmentin day, # 20 875-mg] tab, 0 Refill(s), Pharmacy: [facility], 154.94, cm, 04/20/20 10:56:00 CDT, Height, 77.727, kg, 04/20/20 10:56:00 CDT, Weight Ciprofloxac 2019- Yes 500 mg = 1 Memoria in 500 MG 2-22 tab, PO, l Oral Tablet 18:23: Q12H, Adry nn [Cipro] 00 AVOID TAKING TIZANIDINE WHILE TAKING THIS MED DUE TO INTERACTIO NS BETWEEN THE MEDS, X 7 day, # 14 tab, 0 Refill(s), Pharmacy: [facility], AVOID TAKING TIZANIDINE WHILE TAKING THIS MED DUE TO INTERACTIO NS BETWEE... Ciprofloxac 2019-08 Yes 500 mg = 1 Memoria in 500 MG 2-22 tab, PO, l Oral Tablet 18:23: Q12H, Adry nn [Cipro] 00 AVOID TAKING TIZANIDINE WHILE TAKING THIS MED DUE TO INTERACTIO NS BETWEEN THE MEDS, X 7 day, # 14 tab, 0 Refill(s), Pharmacy: [facility], AVOID TAKING TIZANIDINE WHILE TAKING THIS MED DUE TO INTERACTIO NS BETWEE... benzonatate 2019-08 Yes 200 mg = 1 Memoria 200 mg oral 2-16 cap, PO, l capsule 17:49: TID, X 10 Adry nn 00 day, # 30 cap, 0 Refill(s), Pharmacy: [facility], 154.94, cm, 04/20/20 10:56:00 CDT, Height, 77.727, kg, 04/20/20 10:56:00 CDT, Weight benzonatate 2019-08 Yes 200 mg = 1 Memoria 200 mg oral 2-16 cap, PO, l capsule 17:49: TID, X 10 Adry nn 00 day, # 30 cap, 0 Refill(s), Pharmacy: [facility], 154.94, cm, 04/20/20 10:56:00 CDT, Height, 77.727, kg, 04/20/20 10:56:00 CDT, Weight benzonatate 2020-0 Yes 200 mg = 1 Memoria 200 mg oral 9-04 cap, PO, l capsule 16:30: TID, [place] 00 NEEDED FOR COUGH, X 10 day, # 30 cap, 0 Refill(s), Pharmacy: [facility], 154.94, cm, 04/20/20 10:56:00 CDT, Height, 77.727, kg, 04/20/20 10:56:00 CDT, Weight benzonatate 2020-0 Yes 200 mg = 1 Memoria 200 mg oral 9-04 cap, PO, l capsule 16:30: TID, [place] 00 NEEDED FOR COUGH, X 10 day, # 30 cap, 0 Refill(s), Pharmacy: [facility], 154.94, cm, 04/20/20 10:56:00 CDT, Height, 77.727, kg, 04/20/20 10:56:00 CDT, Weight Amoxicillin 2020-0 Yes 875 mg = 1 Memoria 875 MG / 9-04 tab, PO, l Clavulanate 16:27: BID, X 10 H ermann 125 MG Oral 00 day, # 20 Tablet tab, 0 [Augmentin Refill(s), 875-mg] Pharmacy: [facility], 154.94, cm, 04/20/20 10:56:00 CDT, Height, 77.727, kg, 04/20/20 10:56:00 CDT, Weight Amoxicillin 2020-0 Yes 875 mg = 1 Memoria 875 MG / 9-04 tab, PO, l Clavulanate 16:27: BID, X 10 H ermann 125 MG Oral 00 day, # 20 Tablet tab, 0 [Augmentin Refill(s), 875-mg] Pharmacy: [facility], 154.94, cm, 04/20/20 10:56:00 CDT, Height, 77.727, kg, 04/20/20 10:56:00 CDT, Weight fluticasone 2020-0 Yes INHALATION Memoria propionate -02 , BID, 0 l 15:21: Refill(s) [place] 00 levocetiriz 2020-0 Yes 5 mg = 1 Me moria ine 5 mg - tab, PO, l oral tablet 15:21: Bedtime, He r[place] 00 PRN as needed for allergy symptoms, # 30 tab, 0 Refill(s) Folic Acid 2020-0 Yes 1 mg = 1 Mem oria 1 MG Oral 9-02 tab, PO, l Tablet 15:21: Daily, # [place] 00 30 tab, 0 Refill(s) folic acid 2020-0 Yes 1 mg = 1 Mem oria 1 mg oral 9-02 tab, PO, l tablet 15:21: Daily, # [place] 00 30 tab, 0 Refill(s) methotrexat 2020-0 Yes 2.5 mg = 1 Memoria e 2.5 mg 9-02 tab, PO, l oral tablet 15:21: Q7D, # 1 He rmann 00 tab, 0 Refill(s) fluticasone 2020-0 Yes INHALATION Memoria propionate 9 , BID, 0 l 15:21: Refill(s) [place] 00 levocetiriz 2020-0 Yes 5 mg = 1 Me moria ine 5 mg - tab, PO, l oral tablet 15:21: Bedtime, He r[place] 00 PRN as needed for allergy symptoms, # 30 tab, 0 Refill(s) Folic Acid 2020-0 Yes 1 mg = 1 Mem oria 1 MG Oral - tab, PO, l Tablet 15:21: Daily, # [place] 00 30 tab, 0 Refill(s) folic acid 2020-0 Yes 1 mg = 1 Mem oria 1 mg oral -02 tab, PO, l tablet 15:21: Daily, # [place] 00 30 tab, 0 Refill(s) methotrexat 2020-0 Yes 2.5 mg = 1 Memoria e 2.5 mg - tab, PO, l oral tablet 15:21: Q7D, # 1 He rmann 00 tab, 0 Refill(s) omeprazole 2020-0 Yes 20 mg = 1 Me moria 20 mg oral -02 tab, PO, l enteric 14:42: Daily, # [place] n coated 00 30 tab, 3 tablet Refill(s) gabapentin 2020-0 Yes 300 mg = 1 M emoria 300 MG Oral 04-18 cap, PO, l Capsule 14:42: BID, # 90 Adry nn 00 cap, 1 Refill(s) Stool 2020-0 Yes PO, Memoria Softener 04-18 Bedtime, 0 l with 14:42: Refill(s) Luan Laxative 00 tizanidine 2020-0 Yes 4 mg = 1 Mem oria 4 mg oral -02 tab, PO, l tablet 14:42: Bedtime, [place] 00 PRN for muscle spasm, # 30 tab, 0 Refill(s) omeprazole 2020-0 Yes 20 mg = 1 Me moria 20 mg oral - tab, PO, l enteric 14:42: Daily, # [place] n coated 00 30 tab, 3 tablet Refill(s) gabapentin 2020-0 Yes 300 mg = 1 M emoria 300 MG Oral 04-18 cap, PO, l Capsule 14:42: BID, # 90 Adry nn 00 cap, 1 Refill(s) Stool 2020-0 Yes PO, Memoria Softener 902 Bedtime, 0 l with 14:42: Refill(s) [place] Laxative 00 tizanidine 2020-0 Yes 4 mg = 1 Mem oria 4 mg oral 04-18 tab, PO, l tablet 14:42: Bedtime, [place] 00 PRN for muscle spasm, # 30 tab, 0 Refill(s) calcitrioL 2020-0 Yes .5ug QD Take 0.5 Met hodi (ROCALTROL) 2-[address] 0.5 MCG 15:34: mouth [facility]osp[facility] capsule 15 nightly. l carvediloL 2020-0 Yes 25mg Q.5D Take 25 mg M ethodi (COREG) 25 2-[address] MG tablet 15:34: (two) Hospita 15 times a l day with meals. omeprazole 2020-0 Yes 40mg QD Take 40 mg M ethodi (PriLOSEC) 2-[address] 40 MG 15:34: daily. Hospita capsule 15 l levothyroxi 2020-0 Yes 150ug QD Take 150 M ethodi ne 2-[address] (SYNTHROID) 15:34: mouth Hospi ta 150 mcg 15 daily. l tablet tiZANidine 2020-0 Yes 4mg QD Take 4 mg Me thodi (ZANAFLEX) 2-[address] 4 MG tablet 15:34: nightly. Ho spita 15 l gabapentin 2020-0 Yes 400mg Q.5D Take 400 Me thodi (NEURONTIN) 2-[address] 400 mg 15:34: mouth 2 Hospita capsule 15 (two) l times a day. docusate 2020-0 Yes 200mg Q.5D Take 200 Meth [place] sodium 2-[address] (COLACE) 15:34: mouth 2 Hospit a 100 MG 15 (two) l capsule times a day. cholecalcif 2020-0 Yes 2000U Q.5D Take 2,000 Methodi manoj, 2-[address] vitamin D3, 15:34: mouth 2 Hos palomo 1,000 unit 15 (two) l tablet times a day. CALCIUM 2020-0 Yes 1200mg Q.5D Take 1,200 Me thodi CITRATE, 2-[address] BULK, MISC 15:34: mouth 2 Hosp tomás 15 (two) l times a day. cycloSPORIN 2020-0 Yes 1[drp] Q.5D Administer Methodi E 2-[address] (RESTASIS) 15:34: both eyes Ho spita 0.05 % 15 2 (two) l ophthalmic times a emulsion day. calcitrioL 2020-0 Yes .5ug QD Take 0.5 Met hodi (ROCALTROL) 2-[address] 0.5 MCG 15:34: mouth [facility]ospita capsule 15 nightly. l carvediloL 2020-0 Yes 25mg Q.5D Take 25 mg M ethodi (COREG) 25 2-[address] MG tablet 15:34: (two) Hospita 15 times a l day with meals. omeprazole 2020-0 Yes 40mg QD Take 40 mg M ethodi (PriLOSEC) 2-[address] 40 MG 15:34: daily. Hospita capsule 15 l levothyroxi 2020-0 Yes 150ug QD Take 150 M ethodi ne 2-[address] (SYNTHROID) 15:34: mouth Hospi ta 150 mcg 15 daily. l tablet tiZANidine 2020-0 Yes 4mg QD Take 4 mg Me thodi (ZANAFLEX) 2-[address] 4 MG tablet 15:34: nightly. Ho spita 15 l gabapentin 2020-0 Yes 400mg Q.5D Take 400 Me thodi (NEURONTIN) 2-[address] 400 mg 15:34: mouth 2 Hospita capsule 15 (two) l times a day. docusate 2020-0 Yes 200mg Q.5D Take 200 Meth [place] sodium 2-[address] (COLACE) 15:34: mouth 2 Hospit a 100 MG 15 (two) l capsule times a day. cholecalcif 2020-0 Yes 2000U Q.5D Take 2,000 Methodi manoj, 2-[address] vitamin D3, 15:34: mouth 2 Hos palomo 1,000 unit 15 (two) l tablet times a day. CALCIUM 2020-0 Yes 1200mg Q.5D Take 1,200 Me thodi CITRATE, 2-[address] BULK, MISC 15:34: mouth 2 Hosp tomás 15 (two) l times a day. cycloSPORIN 2020-0 Yes 1[drp] Q.5D Administer Methodi E 2-[address] (RESTASIS) 15:34: both eyes Ho spita 0.05 % 15 2 (two) l ophthalmic times a emulsion day. calcitrioL 2020-0 Yes .5ug QD Take 0.5 Met hodi (ROCALTROL) 2-[address] 0.5 MCG 15:34: mouth [facility]ospita capsule 15 nightly. l carvediloL 2020-0 Yes 25mg Q.5D Take 25 mg M ethodi (COREG) 25 2-[address] MG tablet 15:34: (two) Hospita 15 times a l day with meals. omeprazole 2020-0 Yes 40mg QD Take 40 mg M ethodi (PriLOSEC) 2-[address] 40 MG 15:34: daily. Hospita capsule 15 l levothyroxi 2020-0 Yes 150ug QD Take 150 M ethodi ne 2-[address] (SYNTHROID) 15:34: mouth Hospi ta 150 mcg 15 daily. l tablet tiZANidine 2020-0 Yes 4mg QD Take 4 mg Me thodi (ZANAFLEX) 2-[address] 4 MG tablet 15:34: nightly. Ho spita 15 l gabapentin 2020-0 Yes 400mg Q.5D Take 400 Me thodi (NEURONTIN) 2-[address] 400 mg 15:34: mouth 2 Hospita capsule 15 (two) l times a day. docusate 2020-0 Yes 200mg Q.5D Take 200 Meth [place] sodium 2-[address] (COLACE) 15:34: mouth 2 Hospit a 100 MG 15 (two) l capsule times a day. cholecalcif 2020-0 Yes 2000U Q.5D Take 2,000 Methodi manoj, 2-[address] vitamin D3, 15:34: mouth 2 Hos palomo 1,000 unit 15 (two) l tablet times a day. CALCIUM 2020-0 Yes 1200mg Q.5D Take 1,200 Me thodi CITRATE, 2-[address] BULK, MISC 15:34: mouth 2 Hosp tomás 15 (two) l times a day. cycloSPORIN 2020-0 Yes 1[drp] Q.5D Administer Methodi E 2-[address] (RESTASIS) 15:34: both eyes Ho spita 0.05 % 15 2 (two) l ophthalmic times a emulsion day. levothyroxi 2020-0 Yes = 1 tab, Me moria ne 150 mcg 2-05 PO, Daily, l (0.15 mg) 22:03: # 90 ea, Herm kim oral tablet 00 Refill(s) 3, Pharmacy: [facility] levothyroxi 2020-0 Yes = 1 tab, Me moria ne 150 mcg 2-05 PO, Daily, l (0.15 mg) 22:03: # 90 ea, Herm kim oral tablet 00 Refill(s) 3, Pharmacy: [facility] levocetiriz 2020-0 Yes 5 mg = 1 Me moria ine 5 mg 1-30 tab, PO, l oral tablet 16:13: QPM, for He rmann 00 allergies, # 90 tab, 3 Refill(s), Pharmacy: [facility] Fluticasone 2020-0 Yes 2 spray, Me moria propionate 1-30 NASAL, l 0.05 16:13: Daily, in [place] MG/ACTUAT 00 each Metered nostril, # Dose Nasal 16 gm, 11 [place] Refill(s), Pharmacy: [facility] fluticasone 2020-0 Yes 2 spray, Me moria nasal 0.05 1-30 NASAL, l mg/inh 16:13: Daily, in [place] n spray 00 each nostril, # 16 gm, 11 Refill(s), Pharmacy: [facility] levocetiriz 2020-0 Yes 5 mg = 1 Me moria ine 5 mg 1-30 tab, PO, l oral tablet 16:13: QPM, for He rmann 00 allergies, # 90 tab, 3 Refill(s), Pharmacy: [facility] Fluticasone 2020-0 Yes 2 spray, Me moria propionate 1-30 NASAL, l 0.05 16:13: Daily, in [place] MG/ACTUAT 00 each Metered nostril, # Dose Nasal 16 gm, 11 [place] Refill(s), [facility] [place] fluticasone 2020-0 Yes 2 spray, Me moria nasal 0.05 1-30 NASAL, l mg/inh 16:13: Daily, in [place] n spray 00 each nostril, # 16 gm, 11 Refill(s), Pharmacy: [facility] [place] fluticasone 2020-0 Yes 2 spray, Me thodi propionate 1-30 NASAL, st (FLONASE) 00:00: Daily, in Hos palomo 50 00 each l mcg/actuati nostril, # on nasal 16 gm, 11 spray Refill(s), Pharmacy: [facility] [place] levocetiriz 2020-0 Yes 5 mg = 1 Me thodi ine (XYZAL) 1-30 tab, PO, st 5 MG tablet 00:00: QPM, for Ho spita 00 allergies, l # 90 tab, 3 Refill(s), Pharmacy: [facility] [place] fluticasone 2020-0 Yes 2 spray, Me thodi propionate 1-30 NASAL, st (FLONASE) 00:00: Daily, in Hos pal[place] 50 00 each l mcg/actuati nostril, # on nasal 16 gm, 11 spray Refill(s), Pharmacy: [facility] [place] levocetiriz 2020-0 Yes 5 mg = 1 Me thodi ine (XYZAL) 1-30 tab, PO, st 5 MG tablet 00:00: QPM, for Ho spita 00 allergies, l # 90 tab, 3 Refill(s), Pharmacy: [facility] [place] fluticasone 2020-0 Yes 2 spray, Me thodi propionate 1-30 NASAL, st (FLONASE) 00:00: Daily, in Hos pal[place] 50 00 each l mcg/actuati nostril, # on nasal 16 gm, 11 spray Refill(s), Pharmacy: [facility] [place] levocetiriz 2020-0 Yes 5 mg = 1 Me thodi ine (XYZAL) 1-30 tab, PO, st 5 MG tablet 00:00: QPM, for Ho spita 00 allergies, l # 90 tab, 3 Refill(s), Pharmacy: [facility] [place] Prednisone 2018-08 Yes 50 mg = 1 Me moria 50 MG Oral 2-23 tab, PO, l Tablet 18:50: Daily, X 5 Adry nn 00 day, # 5 tab, 0 Refill(s) Acetaminoph 2018-08 Yes 1 - 2 tab, Memoria en 300 MG / 2-23 PO, Q6H, l Codeine 18:50: PRN Pain, Adry nn Phosphate 00 X 4 day, # 30 MG Oral 20 tab, 0 Tablet Refill(s) [Tylenol with Codeine #3] Prednisone 2018-08 Yes 50 mg = 1 Me moria 50 MG Oral 2-23 tab, PO, l Tablet 18:50: Daily, X 5 Adry nn 00 day, # 5 tab, 0 Refill(s) Acetaminoph 2018-08 Yes 1 - 2 tab, Memoria en 300 MG / 2-23 PO, Q6H, l Codeine 18:50: PRN Pain, Adry nn Phosphate 00 X 4 day, # 30 MG Oral 20 tab, 0 Tablet Refill(s) [Tylenol with Codeine #3] Morphine 2018-08 No 4 mg, Memoria 2-23 Route: l 18:49: IVP, ONCE, Dosing Weight 75, kg, Priority: STAT, Start date: 08/08/19 12:49:00 HEALTH EDUCATOR, Stop date: 08/08/19 12:49:00 HEALTH EDUCATOR Morphine 2018- No 4 mg, Memoria 2-23 Route: l 18:49: IVP, ONCE, Dosing Weight 75, kg, Priority: STAT, Start date: 08/08/19 12:49:00 HEALTH EDUCATOR, Stop date: 08/08/19 12:49:00 HEALTH EDUCATOR Morphine 2018- No 4 mg, Memoria 2-23 Route: l 16:58: IVP, ONCE, Dosing Weight 75, kg, Priority: STAT, Start date: 08/08/19 10:58:00 HEALTH EDUCATOR, Stop date: 08/08/19 10:58:00 HEALTH EDUCATOR Zofran 2018-08 No 4 mg, Memoria 2-23 Route: l 16:58: IVP, Drug Luan 00 form: INJ, ONCE, Dosing Weight 75, kg, Priority: STAT, Start date: 08/08/19 10:58:00 HEALTH EDUCATOR, Stop date: 08/08/19 10:58:00 HEALTH EDUCATOR Morphine 2019- No 4 mg, Memoria 2-23 Route: l 16:58: IVP, ONCE, Luan 00 Dosing Weight 75, kg, Priority: STAT, Start date: 08/08/19 10:58:00 HEALTH EDUCATOR, Stop date: 08/08/19 10:58:00 HEALTH EDUCATOR Zofran 2019- No 4 mg, Memoria 2-23 Route: l 16:58: IVP, Drug [place] form: INJ, ONCE, Dosing Weight 75, kg, Priority: STAT, Start date: 08/08/19 10:58:00 HEALTH EDUCATOR, Stop date: 08/08/19 10:58:00 HEALTH EDUCATOR levothyroxi 2018-08 Yes 150 Memori a ne 150 mcg 1-07 microgram l (0.15 mg) 14:52: = 1 tab, Herm kim oral tablet 00 PO, Daily, # 90 tab, 0 Refill(s), Pharmacy: [facility] [place] levothyroxi 2018-08 Yes 150 Memori a ne 150 mcg 1-07 microgram l (0.15 mg) 14:52: = 1 tab, Herm kim oral tablet 00 PO, Daily, # 90 tab, 0 Refill(s), Pharmacy: [facility] [place] levothyroxi Yes = 1 tab, Me moria ne 137 mcg 4-24 PO, Daily, l (0.137 mg) 14:47: # 90 ea, Her malloy oral tablet 17 Refill(s) 3, Pharmacy: [facility] [place] levothyroxi Yes = 1 tab, Me moria ne 137 mcg 4-24 PO, Daily, l (0.137 mg) 14:47: # 90 ea, Her malloy oral tablet 17 Refill(s) 3, Pharmacy: [facility] [place] gabapentin Yes 400 mg = 1 M emoria 400 MG Oral 3-21 cap, PO, l Capsule 18:37: TID, for [place] n 00 nerve pain, # 270 cap, 3 Refill(s), Pharmacy: [facility] [place] gabapentin Yes 400 mg = 1 M emoria 400 MG Oral 3-21 cap, PO, l Capsule 18:37: TID, for [place] n 00 nerve pain, # 270 cap, 3 Refill(s), Pharmacy: [facility] [place] calcium (as 20190 Yes 0 Memori a citrate)-vi 11-04 Refill(s) l tamin D 500 17:49: [place] n mg-500 intl 00 units/5 g oral powder for reconstitut ion Vitamin D3 Yes 5,000 Memori a 5000 intl -21 IntlUnit = l units oral 17:49: 1 cap, PO, H ermann capsule 00 Daily, # 30 cap, 1 Refill(s) calcium (as Yes 0 Memori a citrate)-vi 11-04 Refill(s) l tamin D 500 17:49: [place] n mg-500 intl 00 units/5 g oral powder for reconstitut ion Vitamin D3 Yes 5,000 Memori a 5000 intl -21 IntlUnit = l units oral 17:49: 1 cap, PO, H ermann capsule 00 Daily, # 30 cap, 1 Refill(s) gabapentin Yes 300 mg = 1 M emoria 300 MG Oral 2-25 cap, PO, l Capsule 17:49: TID, Do Luan 29 not take with Cyclobenza anastacia, take 2-4 hours away from Tramadol, # 30 cap, 1 Refill(s), Pharmacy: [facility] [place] gabapentin Yes 300 mg = 1 M emoria 300 MG Oral 2-25 cap, PO, l Capsule 17:49: TID, Do Luan 29 not take with Cyclobenza anastacia, take 2-4 hours away from Tramadol, # 30 cap, 1 Refill(s), Pharmacy: [facility] [place] gabapentin 0 No 300 mg = 1 M emoria 300 MG Oral 2-25 cap, PO, l Capsule 17:48: TID, # 30 Adry nn 00 cap, 1 Refill(s), Pharmacy: [facility] [place] gabapentin No 300 mg = 1 M emoria 300 MG Oral 2-25 cap, PO, l Capsule 17:48: TID, # 30 Adry nn 00 cap, 1 Refill(s), Pharmacy: [facility] [place] cyclobenzap Yes 10 mg = 1 M emoria rine 10 mg 2-25 tab, PO, l oral tablet 17:44: TID, PRN He rmann 00 for spasms, # 30 tab, 0 Refill(s) tramadol Yes 50 mg = 1 Demetrio jaime hydrochlori 2-25 tab, PO, l de 50 MG 17:44: Q4H, 0 [place] Oral Tablet 00 Refill(s) cyclobenzap Yes 10 mg = 1 M emoria rine 10 mg 2-25 tab, PO, l oral tablet 17:44: TID, PRN He rmann 00 for spasms, # 30 tab, 0 Refill(s) tramadol Yes 50 mg = 1 Demetrio jaime hydrochlori 2-25 tab, PO, l de 50 MG 17:44: Q4H, 0 [place] Oral Tablet 00 Refill(s) levothyroxi No 137 Memori a ne 137 mcg 2-06 microgram l (0.137 mg) 20:28: = 1 tab, Her malloy oral tablet 00 PO, Daily, # 90 tab, 0 Refill(s), Pharmacy: [facility] [place] levothyroxi No 137 Memori a ne 137 mcg 2-06 microgram l (0.137 mg) 20:28: = 1 tab, Her malloy oral tablet 00 PO, Daily, # 90 tab, 0 Refill(s), Pharmacy: [facility] [place] rosuvastati Yes 5 mg = 1 Me moria n 5 mg oral 2-02 tab, PO, l tablet 12:09: Bedtime, Luan 00 to control cholestero l, # 90 tab, 3 Refill(s), Pharmacy: [facility] [place] rosuvastati Yes 5 mg = 1 Me moria n 5 mg oral 2-02 tab, PO, l tablet 12:09: Bedtime, Luan 00 to control cholestero l, # 90 tab, 3 Refill(s), Pharmacy: [facility] [place] Acetaminoph No 1 - 2 tab, Memoria en 300 MG / 1-27 PO, Q8H, l Codeine 18:59: PRN Pain, Adry nn Phosphate 00 X 3 day, # 30 MG Oral 10 tab, 0 Tablet Refill(s) [Tylenol with Codeine #3] Acetaminoph No 1 - 2 tab, Memoria en 300 MG / 09-12 PO, Q8H, l Codeine 18:59: PRN Pain, Adry nn Phosphate 00 X 3 day, # 30 MG Oral 10 tab, 0 Tablet Refill(s) [Tylenol with Codeine #3] Acetaminoph No 1 tab, Demetrio jaime en 325 MG / 09-12 Route: PO, l Hydrocodone 17:21: Dosing Herm kim Bitartrate 00 Weight 5 MG Oral 63.636, Tablet kg, ONCE, Start date: 09/12/18 11:21:00 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 Acetaminoph No 1 tab, Demetrio jaime en 325 MG / 09-12 Route: PO, l Hydrocodone 17:21: Dosing Herm kim Bitartrate 00 Weight 5 MG Oral 63.636, Tablet kg, ONCE, Start date: 09/12/18 11:21:00 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 0.5 ML No 0.5 mL, Memoria Varicella 1-25 IM, ONCE, l zoster 15:32: repeat [place] virus 00 dose in 2 glycoprotei to 6 n E, months, # recombinant 1 mL, 1 0.1 MG/ML Refill(s), Injection Pharmacy: [Shingrix] [facility] [place] 0.5 ML No 0.5 mL, Memoria Varicella 1-25 IM, ONCE, l zoster 15:32: repeat [place] virus 00 dose in 2 glycoprotei to 6 n E, months, # recombinant 1 mL, 1 0.1 MG/ML Refill(s), Injection Pharmacy: [Shing[facility]] [facility] [place] carvedilol Yes 12.5 mg = Me moria 12.5 mg 1-25 1 tab, PO, l oral tablet 15:15: Q12H, 25mg Luan 00 bid, # 60 tab, 0 Refill(s) carvedilol Yes 12.5 mg = Me moria 12.5 mg 1-25 1 tab, PO, l oral tablet 15:15: Q12H, 25mg Luan 00 bid, # 60 tab, 0 Refill(s) calcitriol 2017-08 Yes 0.5 Memoria 0.5 mcg 2-07 microgram l oral 16:01: = 1 cap, Luan capsule 16 PO, Daily, # 90 caplet, 3 Refill(s), Pharmacy: [facility] [place] calcitriol 2017-08 Yes 0.5 Memoria 0.5 mcg 2-07 microgram l oral 16:01: = 1 cap, Luan capsule 16 PO, Daily, # 90 caplet, 3 Refill(s), Pharmacy: [facility] [place] predniSONE 2017-08 No 5 mg = 1 Mem oria 5 mg oral 2-07 tab, PO, l tablet 15:15: Daily, Luan 00 Give with food., # 30 tab, 0 Refill(s) predniSONE 2017-08 No 5 mg = 1 Mem oria 5 mg oral 2-07 tab, PO, l tablet 15:15: Daily, Luan 00 Give with food., # 30 tab, 0 Refill(s) calcitriol 2017-08 No 0.5 Memoria 0.5 mcg 1-27 microgram l oral 13:58: = 1 cap, Luan capsule 12 PO, Daily, # 11 cap, 0 Refill(s), Pharmacy: [facility] [place] calcitriol 2017-08 No 0.5 Memoria 0.5 mcg 1-27 microgram l oral 13:58: = 1 cap, [place] capsule 12 PO, Daily, # 11 cap, 0 Refill(s), Pharmacy: [facility] [place] Symbicort 2017-08 No 2 puff, Memor ia 160/4.5 0-19 INHALATION l inhalation 14:00: , BID, # 1 H ermann aerosol 00 ea, 1 with Refill(s), adapter Pharmacy: [facility] [place] benzonatate 2017-08 No 200 mg = 1 Memoria 200 mg oral 0-19 cap, PO, l capsule 14:00: TID, X 10 Adry nn 00 day, # 30 cap, 0 Refill(s), Pharmacy: [facility] [place] azithromyci 2017-08 No 500 mg = 1 Memoria n 500 mg 0-19 tab, PO, l oral tablet 14:00: Daily, X 7 Luan 00 day, # 7 tab, 0 Refill(s), Pharmacy: [facility] [place] Symbicort 2017-08 No 2 puff, Memor ia 160/4.5 0-19 INHALATION l inhalation 14:00: , BID, # 1 H ermann aerosol 00 ea, 1 with Refill(s), adapter Pharmacy: [facility] [place] benzonatate 2017-08 No 200 mg = 1 Memoria 200 mg oral 0-19 cap, PO, l capsule 14:00: TID, X 10 Adry nn 00 day, # 30 cap, 0 Refill(s), Pharmacy: [facility] [place] azithromyci 2017-08 No 500 mg = 1 Memoria n 500 mg 0-19 tab, PO, l oral tablet 14:00: Daily, X 7 Luan 00 day, # 7 tab, 0 Refill(s), Pharmacy: [facility] [place] Folic Acid 2017-08 No Daily, 0 Mem oria 0-19 Refill(s) l 13:49: [place] 00 fenoprofen 2017-08 Yes 400 mg = 1 M emoria 400 mg oral 0-19 cap, PO, l capsule 13:49: TID, 0 Luan 00 Refill(s) carvedilol 2017-08 No 6.25 mg = Me moria 6.25 mg 0-19 1 tab, PO, l oral tablet 13:49: BID, 0 Herm kim 00 Refill(s) Folic Acid 2017-08 No Daily, 0 Mem oria 0-19 Refill(s) l 13:49: Luan 00 fenoprofen 2017-08 Yes 400 mg = 1 M emoria 400 mg oral 0-19 cap, PO, l capsule 13:49: TID, 0 [place] 00 Refill(s) carvedilol 2017-08 No 6.25 mg = Me moria 6.25 mg 0-19 1 tab, PO, l oral tablet 13:49: BID, 0 Herm ikm 00 Refill(s) Hydrochloro 2016-08 Yes 1 tab, PO, Memoria thiazide 2-29 Daily, for l 12.5 MG / 21:29: blood [place] Lisinopril 00 pressure, 20 MG Oral # 90 tab, Tablet 3 Refill(s), Pharmacy: [facility] [place] Hydrochloro 2016-08 Yes 1 tab, PO, Memoria thiazide 2-29 Daily, for l 12.5 MG / 21:29: blood Luan Lisinopril 00 pressure, 20 MG Oral # 90 tab, Tablet 3 Refill(s), Pharmacy: [facility] [place] levothyroxi 2016-08 Yes 175 Memori a ne 175 mcg 2-29 microgram l (0.175 mg) 21:09: = 1 tab, Her malloy oral tablet 00 PO, Daily, # 90 tab, 1 Refill(s) levothyroxi 2016-08 Yes 175 Memori a ne 175 mcg 2-29 microgram l (0.175 mg) 21:09: = 1 tab, Her malloy oral tablet 00 PO, Daily, # 90 tab, 1 Refill(s) Levothyroxi 2016-08 No 150 Memori a ne Sodium 2-29 microgram l 0.15 MG 20:51: = 1 tab, [place] n Oral Tablet 00 PO, Daily, [Levothroid # 30 tab, ] 0 Refill(s) magnesium 2016-08 Yes 500 mg = 1 Me moria oxide 500 2-29 tab, PO, l mg oral 20:51: Daily, # [place] n tablet 00 10 tab, 0 Refill(s) Hydrochloro 2016-08 No 1 tab, PO, Memoria thiazide 2-29 Daily, # l 12.5 MG / 20:51: 30 tab, 0 Her malloy Lisinopril 00 Refill(s) 20 MG Oral Tablet Levothyroxi 2016-08 No 150 Memori a ne Sodium 2-29 microgram l 0.15 MG 20:51: = 1 tab, [place] n Oral Tablet 00 PO, Daily, [Levothroid # 30 tab, ] 0 Refill(s) magnesium 2016-08 Yes 500 mg = 1 Me moria oxide 500 2-29 tab, PO, l mg oral 20:51: Daily, # [place] n tablet 00 10 tab, 0 Refill(s) Hydrochloro 2016-08 No 1 tab, PO, Memoria thiazide 2-29 Daily, # l 12.5 MG / 20:51: 30 tab, 0 Her malloy Lisinopril 00 Refill(s) 20 MG Oral Tablet aspirin 81 2016-08 Yes 81 mg = 1 Me moria mg tablet, 2-22 tab, PO, l enteric 21:20: Daily, # [place] n coated 00 90 tab, 3 Refill(s) aspirin 81 2016-08 Yes 81 mg = 1 Me moria mg tablet, 2-22 tab, PO, l enteric 21:20: Daily, # [place] n coated 00 90 tab, 3 Refill(s) Magnesium 2016-08 No Notes: Memori a Sulfate 2-22 WASTE: F/P l 19:03: - Sink; E [place] 00 - Municipal Trash Bin Magnesium 2016-08 No Notes: Memori a Sulfate 2-22 WASTE: F/P l 19:03: - Sink; E [place] 00 - Municipal Trash Bin Saline 2016-08 No Notes: Memoria Flush 0.9% 2-22 (Same as: l 16:36: BD Luan 00 Posiflush) Saline 2016-08 No Notes: Memoria Flush 0.9% 2-22 (Same as: l 16:36: BD [place] 00 Posiflush) omeprazole Yes 40 mg = 1 Me moria 40 mg oral 3-31 cap, PO, l delayed 18:53: Daily, # [place] n release 00 90 cap, 3 capsule Refill(s), Pharmacy: [facility] [place] omeprazole Yes 40 mg = 1 Me moria 40 mg oral 3-31 cap, PO, l delayed 18:53: Daily, # [place] n release 00 90 cap, 3 capsule Refill(s), Pharmacy: [facility] [place] Immunizations Ordered Filled Immunization Date Status Comments [facility] e Immunization Name Name [id number] 2021-06-18 Completed Memor ial [place] [id number] 00:00:00 ER [id number] 2021-06-18 Completed Memor ial [place] [id number] 00:00:00 ER [id number] 2020-11-29 Completed Memor ial [place] [id number] 00:00:00 ER SARS-COV-2 COVID-19 2020-11-29 [facility]00 [facility] SARS-COV-2 COVID-19 2020-11-29 Completed Unive rsity of PFIZER VACCINE 00:00:00 [place] [facility] SARS-COV-2 COVID-19 2020-11-29 Completed Unive rsity of PFIZER VACCINE 00:00:00 [place] [facility] SARS-COV-2 COVID-19 2020-11-29 Completed Unive rsity of PFIZER VACCINE 00:00:00 [facility] SARS-COV-2 COVID-19 2020-11-29 Completed Unive rsity of PFIZER VACCINE 00:00:00 [place] [facility] SARS-COV-2 COVID-19 2020-11-29 Completed Unive rsity of PFIZER VACCINE 00:00:00 [facility] SARS-COV-2 COVID-19 2020-11-29 Completed Unive rsity of PFIZER VACCINE 00:00:00 [facility] SARS-COV-2 COVID-19 2020-11-29 Completed Unive rsity of PFIZER VACCINE 00:00:00 [facility] [id number] 2020-11-29 Completed Memor iarianna Roland [id number] 00:00:00 ER [id number] 2020-11-08 Completed Memor iarianna RuffinLuan [id number] 00:00:00 ER SARS-COV-2 COVID-19 2020-11-08 Completed Unive rsity of PFIZER VACCINE 00:00:00 [facility] SARS-COV-2 COVID-19 2020-11-08 Completed Unive rsity of PFIZER VACCINE 00:00:00 [facility] SARS-COV-2 COVID-19 2020-11-08 Completed Unive rsity of PFIZER VACCINE 00:00:00 [facility] SARS-COV-2 COVID-19 2020-11-08 Completed Unive rsity of PFIZER VACCINE 00:00:00 [facility] SARS-COV-2 COVID-19 2020-11-08 Completed Unive rsity of PFIZER VACCINE 00:00:00 [facility] SARS-COV-2 COVID-19 2020-11-08 Completed Unive rsity of PFIZER VACCINE 00:00:00 [facility] SARS-COV-2 COVID-19 2020-11-08 Completed Unive rsity of PFIZER VACCINE 00:00:00 [facility] SARS-COV-2 COVID-19 2020-11-08 Completed Unive rsity of PFIZER VACCINE 00:00:00 [facility] [id number] 2020-11-08 Completed Memor eugenia Roland [id number] 00:00:00 ER pneumococcal 2018-09-10 Completed [facility] malloy 23-valent vaccine 17:19:00 pneumococcal 2018-09-10 Completed [facility] malloy 23-valent vaccine 17:19:00 influenza virus 2018-07-04 [facility], [facility]:00 trivalent influenza virus 2018-07-04 [facility], 00:00:00 trivalent pneumococcal 2017-07-13 Completed [facility] malloy 13-valent vaccine 00:00:00 pneumococcal 2017-07-13 Completed [facility] malloy 13-valent vaccine 00:00:00 Vital Signs Vital Name Observation Time Observation Value Comments Source Oxygen saturation by 2021-10-10 18:34:00 96 /min [facility] Pulse oximetry Patient [facility] Oxygen saturation by 2021-10-10 16:06:00 96 /min [facility] Pulse oximetry Patient [facility] Height 2021-10-10 16:06:00 154.667168 cm [facility] Patient [facility] Weight 2021-10-10 16:06:00 74.026054 kg [facility] Patient [facility] BMI (Body Mass 2021-10-10 16:06:00 31.2 kg/m2 [facility] Index) Patient [facility] [place] Systolic blood 2021-08-05 21:26:00 146 mm[Hg] Univer sity of pressure [facility] Diastolic blood 2021-08-05 21:26:00 70 mm[Hg] Unive rsity of pressure [facility] Heart rate 2021-08-05 21:26:00 73 /min [facility] Body temperature 2021-08-05 21:26:00 36.61 [facility] Respiratory rate 2021-08-05 21:26:00 16 /min Univ ersity [facility] Body height 2021-08-05 21:26:00 154.9 cm [facility] Body weight 2021-08-05 21:26:00 81.829 kg [facility] BMI 2021-08-05 21:26:00 34.09 kg/m2 [facility] Heart Rate 2022 17:08:00 [facility] Systolic (mm Hg) 2022 17:08:00 Demetrio rial [place] Diastolic (mm Hg) 2022 17:08:00 Mem orial [place] Height 2022 17:08:00 5 [ft_i] [facility] [place] Weight 2022 17:08:00 [facility] [place] BMI Calculated 2022 17:08:00 Memori al [place] Height 2022-05-26 15:36:00 154.94 cm [facility] [place] Weight 2022-05-26 15:36:00 [facility] BMI Calculated 2022-05-26 15:36:00 Memori al [place] Heart Rate 2021-12-18 18:14:00 [facility] [place] Systolic (mm Hg) 2021-12-18 18:14:00 Demetrio rial [place]an Diastolic (mm Hg) 2021-12-18 18:14:00 Mem orial [place] Height 2021-12-18 18:14:00 154.94 cm [facility] [place] Weight 2021-12-18 18:14:00 [facility] [place] BMI Calculated 2021-12-18 18:14:00 Memori al [place] Heart Rate 2021-10-22 21:20:00 [facility] [place] Systolic (mm Hg) 2021-10-22 21:20:00 Demetrio rial Luan Diastolic (mm Hg) 2021-10-22 21:20:00 Mem orial Luan Height 2021-10-22 21:20:00 154.94 cm [facility] [place] Weight 2021-10-22 21:20:00 [facility] [place] BMI Calculated 2021-10-22 21:20:00 Memori al Luan Height 2020-04-20 15:56:00 154.94 cm [facility] [place] Weight 2020-04-20 15:56:00 [facility] [place] BMI Calculated 2020-04-20 15:56:00 Memori al [place] Systolic (mm Hg) 2020-04-18 14:22:00 Demetrio rial [place] Diastolic (mm Hg) 2020-04-18 14:22:00 Mem orial Luan Height 2020-04-18 14:22:00 154.94 cm [facility] [place] Systolic (mm Hg) 2019-10-19 14:22:00 Demetrio rial Luan Diastolic (mm Hg) 2019-10-19 14:22:00 Mem orial [place] Heart Rate 2019-10-19 14:22:00 [facility] [place] Temperature Oral (F) 2019-10-19 14:22:00 97.8 F [facility] [place] Height 2019-10-19 14:22:00 154.94 cm [facility] [place] Weight 2019-10-19 14:22:00 [facility] [place] BMI Calculated 2019-10-19 14:22:00 Memori al [place] Systolic (mm Hg) 2019-09-15 15:13:00 Demetrio rial [place] Diastolic (mm Hg) 2019-09-15 15:13:00 Mem orial [place] Heart Rate 2019-09-15 15:13:00 [facility] [place] Temperature Oral (F) 2019-09-15 15:13:00 98.2 F [facility] [place] Height 2019-09-15 15:13:00 154.94 cm [facility] [place] Weight 2019-09-15 15:13:00 [facility] [place] BMI Calculated 2019-09-15 15:13:00 Memori al [place] Systolic (mm Hg) 2019-08-08 18:55:00 Demetrio rial Luan Diastolic (mm Hg) 2019-08-08 18:55:00 Mem orial [place] Heart Rate 2019-08-08 18:55:00 [facility] [place] Respitory Rate 2019-08-08 18:55:00 Memori al [place] Systolic (mm Hg) 2019-08-08 17:53:00 Demetrio rial [place] Diastolic (mm Hg) 2019-08-08 17:53:00 Mem orial Luan Respitory Rate 2019-08-08 17:53:00 Memori al [place] Heart Rate 2019-08-08 17:53:00 [facility] [place] Systolic (mm Hg) 2019-08-08 17:12:00 Demetrio rial [place] Diastolic (mm Hg) 2019-08-08 17:12:00 Mem orial [place] Respitory Rate 2019-08-08 17:12:00 Memori al [place] Heart Rate 2019-08-08 17:12:00 [facility] [place] Temperature Oral (F) 2019-08-08 15:20:00 97.9 F [facility] [place] Height 2019-08-08 15:20:00 154.94 cm [facility] [place] BMI Calculated 2019-08-08 15:20:00 Memori al [place] Weight 2019-08-08 15:20:00 [facility] [place] Systolic (mm Hg) 2019-04-20 15:15:00 Demetrio rial [place] Diastolic (mm Hg) 2019-04-20 15:15:00 Mem orial [place] Heart Rate 2019-04-20 15:15:00 [facility] [place] Height 2019-04-20 15:15:00 154.94 cm [facility] [place] Weight 2019-04-20 15:15:00 [facility] [place] BMI Calculated 2019-04-20 15:15:00 Memori al [place] Height 2018-11-04 17:44:00 154.94 cm [facility] [place] BMI Calculated 2018-11-04 17:44:00 Memori al [place] Weight 2018-11-04 17:44:00 [facility] [place] Heart Rate 2018-11-04 17:44:00 [facility] [place] Temperature Oral (F) 2018-11-04 17:44:00 98.2 F [facility] [place] Systolic (mm Hg) 2018-11-04 17:44:00 Demetrio rial [place] Diastolic (mm Hg) 2018-11-04 17:44:00 Mem orial [place] Systolic (mm Hg) 2018-10-20 17:01:00 Demetrio rial [place] Diastolic (mm Hg) 2018-10-20 17:01:00 Mem orial [place] Heart Rate 2018-10-20 17:01:00 [facility] [place] Weight 2018-10-20 17:01:00 [facility] [place] Weight 2018-10-11 17:25:00 [facility] [place] BMI Calculated 2018-10-11 17:25:00 Memori al [place] Height 2018-10-11 17:25:00 154.94 cm [facility] [place] Temperature Oral (F) 2018-09-12 19:16:00 98.2 F [facility] [place] Heart Rate 2018-09-12 19:16:00 [facility] Respitory Rate 2018-09-12 19:16:00 [facility] [place] Systolic (mm Hg) 2018-09-12 19:16:00 [facility] Diastolic (mm Hg) 2018-09-12 19:16:00 [facility] [place] Temperature Oral (F) 2018-09-12 15:45:00 97.8 F [facility] Heart Rate 2018-09-12 15:45:00 [facility] Respitory Rate 2018-09-12 15:45:00 [facility] [place] Systolic (mm Hg) 2018-09-12 15:45:00 [facility] [place] Diastolic (mm Hg) 2018-09-12 15:45:00 [facility] Weight 2018-09-12 15:45:00 [facility] BMI Calculated 2018-09-12 15:45:00 [facility] Height 2018-09-12 15:45:00 157.48 cm [facility] Systolic (mm Hg) 2018-09-10 15:02:00 [facility] [place] Diastolic (mm Hg) 2018-09-10 15:02:00 [facility] [place] Heart Rate 2018-09-10 15:02:00 [facility] [place] Temperature Oral (F) 2018-09-10 15:02:00 98.3 F [facility] Height 2018-09-10 15:02:00 154.94 cm [facility] Weight 2018-09-10 15:02:00 [facility] BMI Calculated 2018-09-10 15:02:00 [facility] [place] Weight 2018-07-23 15:10:00 [facility] [place] BMI Calculated 2018-07-23 15:10:00 [facility] [place] Heart Rate 2018-07-23 15:10:00 [facility] Height 2018-07-23 15:10:00 154.94 cm [facility] Systolic (mm Hg) 2018-07-23 15:10:00 Demetrio rial [facility]an Diastolic (mm Hg) 2018-07-23 15:10:00 Mem o[facility] Temperature Oral (F) 2018-06-04 13:47:00 97.8 F [facility] Weight 2018-06-04 13:47:00 [facility] [place] BMI Calculated 2018-06-04 13:47:00 [facility] Height 2018-06-04 13:47:00 154.94 cm [facility] Heart Rate 2018-06-04 13:47:00 [facility] [place] Systolic (mm Hg) 2018-06-04 13:47:00 Demetrio rial [facility]an Diastolic (mm Hg) 2018-06-04 13:47:00 Mem o[facility] BMI Calculated 2017-08-14 20:48:00 [facility] Heart Rate 2017-08-14 20:48:00 [facility] Systolic (mm Hg) 2017-08-14 20:48:00 Demetrio rial [facility] Diastolic (mm Hg) 2017-08-14 20:48:00 [facility] Temperature Oral (F) 2017-08-14 20:48:00 97.6 F [facility] [place] Weight 2017-08-14 20:48:00 [facility] Height 2017-08-14 20:48:00 154.94 cm [facility] [place] Temperature Oral (F) 2017-08-07 22:51:00 97.8 F [facility] Heart Rate 2017-08-07 22:51:00 [facility] Systolic (mm Hg) 2017-08-07 22:51:00 Dem[place]rio [facility] [place] Diastolic (mm Hg) 2017-08-07 22:51:00 [facility] [place] Respitory Rate 2017-08-07 22:51:00 [facility] [place] Weight 2017-08-07 16:19:00 [facility] [place] Respitory Rate 2017-08-07 16:19:00 [facility] [place] Heart Rate 2017-08-07 16:19:00 [facility] [place] Systolic (mm Hg) 2017-08-07 16:19:00 Demetrio rial [facility] Diastolic (mm Hg) 2017-08-07 16:19:00 [facility] [place] Temperature Oral (F) 2017-08-07 16:19:00 97.8 F [facility] Procedures Procedure Date / Time Performing Clinician Source Performed Cystourethroscopy (separate 2022-01-07 21:44:00 [facility] procedure) PHYSICIAN ORDERS 2021-09-27 06:01:00 Doctor Unassigned, [facility] Name [facility] [place] SCANNED LAB RESULTS 2021-08-19 06:01:00 Doctor Unassigned, [facility] Name [facility] URINALYSIS 2021-08-05 22:06:00 Irvin Gunderson [facility] URINE CULTURE 2021-08-05 22:06:00 Irvin Gunderson [facility] Collection of venous blood 2018-07-23 16:15:00 Dave leighton [facility] by venipuncture Mammogram<sup>1</sup> 2017-11-23 05:00:00 Vini al Luan Glaucoma 2016-11-15 00:00:00 [facility] screening<sup>2</sup> Colonoscopy<sup>3</sup> 2012-08-17 00:00:00 Demetrio riarianna Luan Dilation and curettage [facility] Cholecystectomy [facility] Partial hysterectomy [facility] Appendectomy [facility] History of tonsillectomy [facility] Plan of Care Planned Activity Planned Date Details Comments Source Future Scheduled Test 2023-02-04 COVID-19 VACCINE (#1) [facility] 19:43:34 [code = COVID-19 VACCINE (#1)] Future Scheduled Test 2023-02-04 SHINGLES VACCINES (1 [facility] 19:43:34 of 2) [code = SHINGLES VACCINES (1 of 2)] Future Scheduled Test 2023-02-04 65+ PNEUMOCOCCAL [facility] 19:43:34 VACCINE (2 - PCV) [code = 65+ PNEUMOCOCCAL VACCINE (2 - PCV)] Future Scheduled Test 2023-02-04 INFLUENZA VACCINE [facility] 19:43:34 [code = INFLUENZA VACCINE] Future Scheduled Test 2023-02-04 COVID-19 VACCINE (#1) [facility] 19:43:34 [code = COVID-19 VACCINE (#1)] Future Scheduled Test 2023-02-04 SHINGLES VACCINES (1 [facility] 19:43:34 of 2) [code = SHINGLES VACCINES (1 of 2)] Future Scheduled Test 2023-02-04 65+ PNEUMOCOCCAL [facility] 19:43:34 VACCINE (2 - PCV) [code = 65+ PNEUMOCOCCAL VACCINE (2 - PCV)] Future Scheduled Test 2023-02-04 INFLUENZA VACCINE [facility] 19:43:34 [code = INFLUENZA VACCINE] Future Scheduled Test 2022-04-15 COVID-19 VACCINE (#1) [facility] 19:12:33 [code = COVID-19 VACCINE (#1)] Future Scheduled Test 2022-04-15 Hepatitis C screening [facility] 19:12:33 (procedure) [code = [id number]] Future Scheduled Test 2022-04-15 COLONOSCOPY SCREENING [facility] 19:12:33 [code = COLONOSCOPY SCREENING] Future Scheduled Test 2022-04-15 SHINGLES VACCINES (1 [facility] 19:12:33 of 2) [code = SHINGLES VACCINES (1 of 2)] Future Scheduled Test 2022-04-15 65+ PNEUMOCOCCAL [facility] 19:12:33 VACCINE (2 - PCV) [code = 65+ PNEUMOCOCCAL VACCINE (2 - PCV)] Future Scheduled Test 2022-04-15 INFLUENZA VACCINE [facility] 19:12:33 [code = INFLUENZA VACCINE] Future Scheduled Test 2022-04-15 HEPATITIS B VACCINES [facility] 19:12:33 (1 of 3 - 3-dose series) [code = HEPATITIS B VACCINES (1 of 3 - 3-dose series)] Instructions Anaphylactic [facility] Reaction, Adult Patient [facility] Encounters Start End Encounter Admission Attending Care Care Encounter Source Date/Time Date/Time Type Type Clinicians Facility Department ID 2023-01-[address] [facility] [id number] [facility] 15:07:00 -[id number] [facility] 2022 2022-07-15 Outpatient TRINY [facility] [id number] Memoria 17:15:00 05:59:59 Primary 28 [facility] 2022 2022-07-15 Outpatient TRINY [facility] [id number] Memoria 17:15:00 05:59:59 Primary 28 [facility] 2022 2022 [facility] [id number] 11:15:00 23:59:59 Charles 28 2022 2022 Outpatient TRINY AGOSTO [id number] Memoria 11:15:00 11:15:00 28 [facility] 2022-06-24 2022-06-24 Outpatient TRINY AGOSTO [id number] Memoria 14:30:00 14:30:00 27 [facility] 2022-06-24 2022-06-24 Outpatient TRINY COSME [id number] Memoria 14:30:00 14:30:00 27 [facility] 2022-05-26 2022-05-27 Outpatient nullFlavo [facility] Multi [id number] Memoria 15:40:00 04:59:59 r [address] [facility] [place] 2022-05-26 2022-05-27 Outpatient nullFlavo [facility] Multi 55 [id number] Memoria 15:40:00 04:59:59 r [address] [facility] [place] 2022-05-26 2022-05-26 Outpatient Susan, MG [place] [id number] 10:40:00 23:59:59 Gay L 26 2022-05-26 2022-05-26 Outpatient YURIYIE TRINY [id number] Memoria 10:40:00 10:40:00 26 rianna Luan 2022-01-07 2022-01-08 [place] [id number] Memoria 20:30:00 04:59:59 r Urology 25 l [facility] nn Time Share 2022-01-07 2022-01-08 [place] [id number] Memoria 20:30:00 04:59:59 r Urology 25 l [facility] nn Time Share 2022-01-07 2022-01-07 Outpatient Susan, MG MG [id number] 15:30:00 23:59:59 Gay L 25 2022-01-07 2022-01-07 Outpatient TRINY AGOSTO [id number] Memoria 15:30:00 15:30:00 25 rianna Luan 2021-12-18 2021-12-19 [place] [id number] Memoria 18:00:00 04:59:59 r Primary 23 [facility] 2021-12-18 2021-12-19 [place] [id number] Memoria 18:00:00 04:59:59 r Primary 23 [facility] 2021-12-18 2021-12-18 Outpatient Desirae, MG [place] [id number] 13:00:00 23:59:59 Edward Julissa Juan Manuel 2021-12-18 2021-12-18 Outpatient TRINY AGOSTO [id number] Memoria 13:00:00 13:00:00 23 [place] 2021-12-172021-12-18 Outpatient nullFlavo [facility] [id number] Memoria 20:15:00 04:59:59 r Urology 24 l Waldo Rider nn Time Share 2021-12-17 2021-12-18 Outpatient nullFlavo [facility] [id number] Memoria 20:15:00 04:59:59 r Urology 24 l Waldo Rider nn Time Share 2021-12-17 2021-12-17 Outpatient Staller, MHMG MG [id number] 15:15:00 23:59:59 Gay L 24 2021-12-17 2021-12-17 Outpatient MHIE YURIYIE [id number] Memoria 15:15:00 15:15:00 24 rianna [place] 2021-11-25 2021-11-26 Outpatient nullFlavo [facility] Multi 55 [id number] Memoria 19:45:00 04:59:59 r Specialty 22 l [facility] 2021-11-25 2021-11-26 Outpatient nullFlavo MG Multi 55 [id number] Memoria 19:45:00 04:59:59 r Specialty 22 [facility] 2021-11-25 2021-11-25 Outpatient Sorener, [place] [id number] 14:45:00 23:59:59 Gay L 2021-11-25 2021-11-25 Outpatient MHIE MHIE [id number] Memoria 14:45:00 14:45:00 22 rianna [place] 2021-11-11 2021-11-11 Outpatient R TERRY, [facility] [id number] Univers 13:30:00 13:30:[address] [facility] 2021-10-25 2021-10-26 Between nullFlavo [facility] [id number] Memoria 11:19:05 11:19:05 Visit r Primary 47 l [facility] 2021-10-25 2021-10-26 Between nullFlavo [facility] [id number] Memoria 11:19:05 11:19:05 Visit r Primary 47 l [facility] 2021-10-25 2021-10-26 Outpatient MHMG [facility] [id number] 05:19:05 05:19:05 47 2021-10-22 2021-10-23 [place] [id number] Memoria 21:20:00 05:59:59 r Primary 21 l Willie Gonzalez 2021-10-22 2021-10-23 [place] [id number] Memoria 21:20:00 05:59:59 r Primary 21 l Willie Gonzalez 2021-10-22 2021-10-22 Outpatient Marco Antonio, MG MG [id number] 15:20:00 23:59:59 Charles 21 2021-10-22 2021-10-22 Outpatient MHIE IE [id number] Memoria 15:20:00 15:20:00 21 l Luan 2021-10-10 2021-10-10 Departed [facility] [id number] 16:20:00 18:59:00 Emergency Patients [id number] [facility] [id number] Pa evelyn [id number] [facility] 2021-10-10 2021-10-[address] [facility] [id number] 16:20:00 18:59:00 -[id number] [facility] Patient [facility] 2021-10-10 2021-10-10 Outpatient 1 LINO CURRAN [facility] A [id number] [facility] 16:20:00 18:59:00 [facility] 2021-09-27 2021-09-27 Telephone SERENITY Gunderson 1.2.840.114 [id number] Univers 00:00:00 00:00:00 Irvin [facility] 350.1.13.10 i [place] [id number] [facility] [address] 2021-09-27 2021-09-27 Orders Doctor GERMAIN 1.2.840.114 [id number] Univers 00:00:00 00:00:00 Only Unassigned, CODY 350.1.13.10 ity of [place] [facility] 4.2.7.2.686 Go as [phone] [facility] [address] Branch 2021-09-16 2021-09-16 Telephone LUIS ALBERTO GundersonIT 1.2.840.114 [id number] Univers 00:00:00 00:00:00 Irvin Y HEALTH 350.1.13.10 i [place] [id number] [facility] [address] 2021-09-12 2021-09-12 [id number] Univers 14:48:02 23:59:00 IRVIN ity of [facility] 2021-09-12 2021-09-12 Hospital [facility] 1.2.840.114 [id number] Univers 14:48:02 23:59:00 Encounter Irvin [place] 350.1.13.10 it[place] [id number] [facility] [address] 2021-08-27 2021-08-27 Telephone [facility] 1.2.840.114 [id number] Univers 00:00:00 00:00:00 Irvin HEALTH 350.1.13.10 [place] [facility] [id number] [facility] PRIMARY & [address] SPECIALTY CARE 2021-08-19 2021-08-19 Orders Doctor GERMAIN 1.2.840.114 [id number] Univers 00:00:00 00:00:00 Only Unassigned, CODY 350.1.13.10 ity of [place] [facility] 4.2.7.2.686 Og as [id number] [facility] [address] Branch 2021-08-06 2021-08-06 [facility] 1.2.840.114 [id number] Univers 00:00:00 00:00:00 Irvin Y HEALTH 350.1.13.10 i [place] [id number] [facility] [address] 2021-08-05 2021-08-05 Office [facility] 1.2.840.114 [id number] Univers 15:30:00 16:00:00 Visit Irvin Y HEALTH 350.1.13.10 i ty of CLINICS 4.2.7.2.686 Juan walker [id number] [address] 2021-08-05 2021-08-05 Outpatient R TERRY [facility] [id number] Univers 15:30:00 [facility]:30:[facility] 2021-08-05 2021-08-05 Outpatient R TERRY [facility] [id number] Univers 15:30:00 15:30:00 [facility] 2021-06-05 2021-06-06 Between nullFlavo MHMG [id number] Memoria 12:41:09 12:41:09 Visit r Primary 45 l Care [facility] 2021-06-05 2021-06-06 Between nullFlavo MHMG [id number] Memoria 12:41:09 12:41:09 Visit r Primary 45 l Care [facility] 2021-06-05 2021-06-06 Outpatient MHMG MHMG [id number] 07:41:09 07:41:09 45 2021-06-04 2021-06-04 Ambulatory nullFlavo [facility]MG [id number] Memoria 19:20:00 19:20:00 Pre-Reg r Primary 20 l [facility] 2021-06-04 2021-06-04 Ambulatory nullFlavo [facility] [id number] Memoria 19:20:00 19:20:00 Pre-Reg r Primary 20 l [facility] 2021-06-04 2021-06-04 Outpatient MHIE MHIE [id number] Memoria 14:20:00 14:20:00 20 [facility] 2021-06-04 2021-06-04 Outpatient Elhor MHMG MHMG [id number] 14:20:00 14:20:00 Gbito, 20 Akuvi Afefa 2021-03-08 2021-03-09 Between nullFlavo MHMG [id number] Memoria 13:24:28 13:24:28 Visit r Primary 44 l Care [facility] 2021-03-08 2021-03-09 Between nullFlavo MHMG [id number] Memoria 13:24:28 13:24:28 Visit r Primary 44 l Care [facility] 2021-03-08 2021-03-09 Outpatient MHMG MHMG [id number] 08:24:28 08:24:28 44 2021-03-07 2021-03-08 Between nullFlavo MHMG [id number] Memoria 15:42:56 15:42:56 Visit r Primary 43 l [facility] 2021-03-07 2021-03-08 Between nullFlavo MHMG [id number] Memoria 15:42:56 15:42:56 Visit r Primary 43 l [facility] 2021-03-07 2021-03-08 Outpatient MHMG MHMG [id number] 10:42:56 10:42:56 43 2021-02-07 2021-02-08 Outpatient nullFlavo MH Urgent [id number] Memoria 14:15:00 04:59:59 r Care Clear 19 [facility] 2021-02-07 2021-02-08 Outpatient nullFlavo MH Urgent [id number] Memoria 14:15:00 04:59:59 r Care Clear 19 [facility] 2021-02-06 2021-02-08 Phone nullFlavo MG [id number] Memoria 19:03:43 04:59:59 Message r Primary 13 [facility] 2021-02-06 2021-02-08 Phone nullFlavo MG [id number] Memoria 19:03:43 04:59:59 Message r Primary 13 [facility] 2021-02-07 2021-02-08 Outpt Diag nullFlavo [facility] [id number] Memoria 17:57:00 04:59:00 Services r Outpatient 04 [facility] 2021-02-07 2021-02-08 Outpt Diag nullFlavo [facility] [id number] Memoria 17:57:00 04:59:00 Services r Outpatient 04 [facility] 2021-02-07 2021-02-07 Outpatient MHMG MHMG [id number] 09:15:00 23:59:59 19 2021-02-06 2021-02-07 Outpatient MHMG MHMG [id number] 14:03:43 23:59:59 13 2021-02-072021-02-07 Outpatient Recavarren MHOIP MHOIP [id number] 12:57:00 23:59:00 Concha, Manny Kenney 2021-02-07 2021-02-07 Outpatient MHIE MHIE [id number] Memoria 09:15:00 09:15:00 19 [facility] 2021-02-04 2021-02-05 Between nullFlavo MHMG [id number] Memoria 19:26:52 19:26:52 Visit r Primary 41 [facility] 2021-02-04 2021-02-05 Between nullFlavo MHMG [id number] Memoria 19:26:52 19:26:52 Visit r Primary 41 [facility] 2021-02-04 2021-02-05 Outpatient MHMG MHMG [id number] 14:26:52 14:26:52 41 2021-02-04 2021-02-05 Outpatient nullFlavo MHMG [id number] Memoria 19:00:00 04:59:59 r Primary 18 [facility] 2021-02-04 2021-02-05 Outpatient nullFlavo [facility]MG [id number] Memoria 19:00:00 04:59:59 r Primary 18 [facility] 2021-02-04 2021-02-04 Outpatient Recavarren MHMG MHMG [id number] 14:00:00 23:59:59 Concha 18 Tasneem Kenney 2021-02-04 2021-02-04 Outpatient Recavarren MHMG MHMG [id number] 14:00:00 23:59:59 Concha 18 Tasneem Kenney 2021-02-04 2021-02-04 Outpatient MHIE MHIE [id number] Memoria 14:00:00 14:00:00 18 [facility] 2020-09-20 2020-09-21 Outpatient nullFlavo [facility] [id number] Memoria 18:08:00 05:59:00 r Luan [address] [place] [address] 2020-09-20 2020-09-21 Outpatient nullFlavo [facility] [id number] Memoria 18:08:00 05:59:00 r Luan [address] [place] [address] 2020-09-20 2020-09-20 Outpatient Henriquez, MHSE MHSE [id number] 12:08:00 23:59:00 Macyyolyconcetta Sharon Rob 2020-09-20 2020-09-20 Outpatient HENRIQUEZ, MHSE PUL [id number] 12:08:00 23:59:00 MACYYOLYConcetta [facility] 2020-08-07 2020-08-09 Phone nullFlavo MHMG [id number] Memoria 17:27:34 05:59:59 Message r Primary 07 [facility] 2020-08-07 2020-08-09 Phone nullFlavo MHMG [id number] Memoria 17:27:34 05:59:59 Message r Primary 07 [facility] 2020-08-07 2020-08-08 Outpatient MHMG MHMG [id number] 11:27:34 23:59:59 2020-08-01 2020-08-03 Phone nullFlavo MHMG [id number] Memoria 20:28:01 05:59:59 Message r Primary 06 [facility] 2020-08-01 2020-08-03 Phone nullFlavo MHMG [id number] Memoria 20:28:01 05:59:59 Message r Primary 06 [facility] 2020-08-01 2020-08-02 Outpatient MHMG MHMG [id number] 14:28:01 23:59:59 06 2020-08-01 2020-08-02 Outpatient nullFlavo MHMG [id number] Memoria 17:30:00 05:59:59 r Primary 17 [facility] 2020-08-01 2020-08-02 Outpatient nullFlavo MHMG [id number] Memoria 17:30:00 05:59:59 r Primary 17 [facility] 2020-08-01 2020-08-01 Outpatient Bernard, MHMG MHMG [id number] 11:30:00 23:59:59 Charles 2020-08-01 2020-08-01 Outpatient MHIE MHIE [id number] Memoria 11:30:00 11:30:00 17 [facility] 2020-06-19 2020-06-20 Outpatient nullFlavo [facility] [id number] Memoria 15:35:00 05:59:00 r Luan 32 l [facility] 2020-06-19 2020-06-20 Outpatient nullFlavo [facility] [id number] Memoria 15:35:00 05:59:00 r Luan 32 l [facility] 2020-06-19 2020-06-19 Outpatient Gonoreen, MHSE MHSE [id number] 09:35:00 23:59:00 [place] [id number] 2020-06-19 2020-06-19 Outpatient GOGIA, MHSE MHSE [id number] MH 09:35:00 23:59:00 [facility] 2020-05-26 2020-05-27 Between nullFlavo MHMG [id number] Memoria 19:22:00 19:22:00 Visit r Primary 31 l [facility] 2020-05-26 2020-05-27 Between nullFlavo MHMG [id number] Memoria 19:22:00 19:22:00 Visit r Primary 31 l [facility] 2020-05-26 2020-05-27 Outpatient MHMG MG [id number] 14:22:00 14:22:00 31 2020-05-21 2020-05-22 [place] [id number] Memoria 15:00:00 04:59:00 Services r Outpatient 03 l [facility] 2020-05-21 2020-05-22 [place] [id number] Memoria 15:00:00 04:59:00 Services r Outpatient 03 l [facility] 2020-05-21 2020-05-21 Outpatient Bernard, MHOIP MHOIP [id number] 10:00:00 23:59:00 Charles 03 2020-05-05 2020-05-06 Between nullFlavo MHMG [id number] Memoria 14:31:19 14:31:19 Visit r Primary 30 l [facility] 2020-05-05 2020-05-06 Between nullFlavo MHMG [id number] Memoria 14:31:19 14:31:19 Visit r Primary 30 l [facility] 2020-05-05 2020-05-06 Outpatient MHMG MHMG [id number] 09:31:19 09:31:19 30 2020-05-02 2020-05-03 Between nullFlavo MG [id number] Memoria 20:51:24 20:51:24 Visit r Primary 29 l [facility] 2020-05-02 2020-05-03 Between nullFlavo MG [id number] Memoria 20:51:24 20:51:24 Visit r Primary 29 [facility] 2020-05-02 2020-05-03 Outpatient MG [facility] [id number] 15:51:24 15:51:24 29 2020-04-30 2020-05-01 Between nullFlavo MG [id number] Memoria 01:28:05 01:28:05 Visit r Primary 28 [facility] 2020-04-30 2020-05-01 Between nullFlavo MG [id number] Memoria 01:28:05 01:28:05 Visit r Primary 28 [facility] 2020-04-29 2020-04-30 Outpatient MG [facility] [id number] 20:28:05 20:28:05 28 2020-04-26 2020-04-27 Outpt Diag nullFlavo [facility] [id number] Memoria 12:49:00 04:59:00 Services r Outpatient 02 [facility] 2020-04-26 2020-04-27 Outpt Diag nullFlavo [facility] [id number] Memoria 12:49:00 04:59:00 Services r Outpatient 02 [facility] 2020-04-26 2020-04-26 Outpatient Bernard, MHOIP MHOIP [id number] 07:49:00 23:59:00 Charles 02 2020-04-20 2020-04-21 Outpatient nullFlavo [facility] [id number] Memoria 15:45:00 04:59:59 r Primary 16 [facility] 2020-04-20 2020-04-21 [place] [id number] Memoria 15:45:00 04:59:59 r Primary 16 [facility] 2020-04-20 2020-04-20 Outpatient Bernard, MG MG [id number] 10:45:00 23:59:59 Charles 2020-04-20 2020-04-20 Ambulatory nullFlavo [facility] [id number] Memoria 20:45:00 20:45:00 Pre-Reg r Primary 15 [facility] 2020-04-20 2020-04-20 Ambulatory nullFlavo [facility] [id number] Memoria 20:45:00 20:45:00 Pre-Reg r Primary 15 [facility] 2020-04-20 2020-04-20 Outpatient MHIE MHIE [id number] Memoria 15:45:00 15:45:00 15 [facility] 2020-04-20 2020-04-20 Outpatient Bernard, MHMG MHMG [id number] 15:45:00 15:45:00 Charles 15 2020-04-19 2020-04-20 Between nullFlavo MHMG [id number] Memoria 13:01:26 13:01:26 Visit r Primary 27 l [facility] Rajiv 2020-04-19 2020-04-20 Between nullFlavo MHMG [id number] Memoria 13:01:26 13:01:26 Visit r Primary 27 l [facility] Rajiv 2020-04-20 2020-04-20 Outpatient MHIE MHIE [id number] Memoria 10:45:00 10:45:00 16 [facility] 2020-04-19 2020-04-20 Outpatient MHMG MHMG [id number] 08:01:26 08:01:26 27 2020-04-18 2020-04-19 Outpatient nullFlavo MHMG [id number] Memoria 14:45:00 04:59:59 r Primary 14 [facility] 2020-04-18 2020-04-19 Outpatient nullFlavo MHMG [id number] Memoria 14:45:00 04:59:59 r Primary 14 [facility] 2020-04-18 2020-04-18 Outpatient Nicklas, MHMG MHMG [id number] 09:45:00 23:59:59 Edward 14 Juan Manuel 2020-04-18 2020-04-18 Outpatient MHIE MHIE [id number] Memoria 09:45:00 09:45:00 14 [facility] 2020-02-23 2020-02-25 Phone nullFlavo MHMG [id number] Memoria 20:23:35 04:59:59 Message r Primary 05 l [facility] Rajiv 2020-02-23 2020-02-25 Phone nullFlavo MHMG [id number] Memoria 20:23:35 04:59:59 Message r Primary 05 l Care [place] suze Vance 2020-02-23 2020-02-24 Outpatient MHMG MHMG [id number] 15:23:35 23:59:59 05 2019-11-08 2019-11-08 Outpatient DOMINY, [facility] [id number] [place] 00:00:00 00:00:00 OSCAR 727 Method i 2019-10-31 2019-10-31 Outpatient DOMINY, [facility] [id number] [place] 00:00:00 00:00:00 OSCAR 445 Method i 2019-10-25 2019-10-25 Outpatient DOMINY, [facility] [id number] [place] 00:00:00 00:00:00 OSCAR 763 Method i 2019-10-24 2019-10-24 Outpatient DOMINY, [facility] [id number] [place] 00:00:00 00:00:00 OSCAR 012 Method i 2019-10-19 2019-10-20 Outpatient nullFlavo [facility] [id number] Memoria 15:00:00 05:59:59 r Primary 12 l Care [facility] 2019-10-19 2019-10-20 Outpatient [place] [id number] Memoria 15:00:00 05:59:59 r Primary 12 l Care [facility] 2019-10-19 2019-10-19 Outpatient Nicklas, MG [place] [id number] 09:00:00 23:59:59 Edrm Zambrano 2019-10-19 2019-10-19 Outpatient IE IE [id number] Memoria 09:00:00 09:00:00 12 l Luan 2019-10-14 2019-10-14 Outpatient DOMINY, [facility] [id number] [place] 00:00:00 00:00:00 OSCAR 122 Method i 2019-10-12 2019-10-12 Outpatient DOMINY, [facility] [id number] [place] 00:00:00 00:00:00 OSCAR 477 Method i 2019-10-10 2019-10-11 Outpatient nullFlavo [facility] [id number] Memoria 16:44:00 05:59:00 r Luan 25 [facility] 2019-10-10 2019-10-11 Outpatient [facility]Flavo [facility] [id number] Memoria 16:44:00 05:59:00 r [place] 25 l [facility] 2019-10-10 2019-10-10 Outpatient Gonoreen, MHSE MHSE [id number] 10:44:00 23:59:00 [place] [address] 2019-10-10 2019-10-10 Outpatient GOGIA, MHSE MHSE [id number] 10:44:00 10:44:00 [facility] 2019-09-25 2019-09-26 Between nullFlavo MHMG [id number] Memoria 15:17:00 15:17:00 Visit r Primary 24 l [facility] 2019-09-25 2019-09-26 Between nullFlavo MHMG [id number] Memoria 15:17:00 15:17:00 Visit r Primary 24 l [facility] 2019-09-25 2019-09-26 Outpatient MHMG MHMG [id number] 09:17:00 09:17:00 24 2019-09-21 2019-09-23 Phone nullFlavo MHMG [id number] Memoria 21:10:17 05:59:59 Message r Primary 04 l Care [facility] 2019-09-21 2019-09-23 Phone nullFlavo MHMG [id number] Memoria 21:10:17 05:59:59 Message r Primary 04 l Care [facility] 2019-09-21 2019-09-22 Outpatient MHMG MHMG [id number] 15:10:17 23:59:59 2019-09-22 2019-09-22 [facility] [id number] [place] [address] 00:00:00 00:00:00 OSCAR Meeks i 2019-09-15 2019-09-16 Outpatient nullFlavo MHMG [id number] Memoria 15:30:00 05:59:59 r Primary 13 [facility] 2019-09-15 2019-09-16 Outpatient nullFlavo MHMG [id number] Memoria 15:30:00 05:59:59 r Primary 13 [facility] 2019-09-15 2019-09-15 Outpatient Marco Antonio, MG MHMG [id number] 09:30:00 23:59:59 Charles 13 2019-09-15 2019-09-15 Outpatient MHIE IE [id number] Memoria 09:30:00 09:30:00 13 rianna Roland 2019-09-09 2019-09-09 Outpatient DERRELL, [facility] [id number] [place] 00:00:00 00:00:00 JO 942 Method i 2019-09-09 2019-09-09 Outpatient DERRELL, [facility] [id number] [place] 00:00:00 00:00:00 JO 941 Method i 2019-09-07 2019-09-07 Outpatient DERRELL, [facility] [id number] [place] 00:00:00 00:00:00 JO 440 Method i 2019-08-30 2019-08-30 Outpatient DERRELL, [facility] [id number] [place] 00:00:00 00:00:00 JO 029 Method i 2019-08-24 2019-08-25 Between nullFlavo MG [id number] Memoria 13:38:06 13:38:06 Visit r Primary 21 l Care [facility] 2019-08-24 2019-08-25 Between nullFlavo MHMG [id number] Memoria 13:38:06 13:38:06 Visit r Primary 21 l Care [facility] 2019-08-24 2019-08-25 Between nullFlavo MHMG [id number] Memoria 13:37:13 13:37:13 Visit r Primary 20 l Care [facility] 2019-08-24 2019-08-25 Between nullFlavo MHMG [id number] Memoria 13:37:13 13:37:13 Visit r Primary 20 l Care [facility] 2019-08-24 2019-08-25 Outpatient MHMG MHMG [id number] 07:38:06 07:38:06 21 2019-08-24 2019-08-25 Outpatient MHMG MHMG [id number] 07:37:13 07:37:13 20 2019-08-08 2019-08-08 Emergency nullFlavo [facility] [id number] Memoria 15:17:54 19:23:00 [address] [place] [address] [facility] 2019-08-08 2019-08-08 Emergency nullFlavo [facility] [id number] Memoria 15:17:54 19:23:00 [address] [place] [address] [facility] 2019-08-08 2019-08-08 Outpatient BRUCE Yates MHPL [id number] 09:17:54 13:23:00 Srinivas Levin 18 2019-08-08 2019-08-08 Emergency E MHBL MHBL [id number] MHBL 09:17:00 09:17:00 2019-06-23 2019-06-24 Between nullFlavo MHMG [id number] Memoria 14:51:28 14:51:28 Visit r Primary 17 l Care [facility] 2019-06-23 2019-06-24 Between nullFlavo MHMG [id number] Memoria 14:51:28 14:51:28 Visit r Primary 17 l Care [facility] 2019-06-23 2019-06-24 Outpatient MHMG MHMG [id number] 08:51:28 08:51:28 17 2019-04-21 2019-04-22 Between nullFlavo MG [id number] Memoria 13:03:17 13:03:17 Visit r Primary 15 l Care [facility] 2019-04-21 2019-04-22 Between nullFlavo MG [id number] Memoria 13:03:17 13:03:17 Visit r Primary 15 l Care [facility] 2019-04-21 2019-04-22 Outpatient MHMG MHMG [id number] 08:03:17 08:03:17 15 2019-04-20 2019-04-21 [place] [id number] Memoria 15:45:00 04:59:59 r Primary 10 l [facility] 2019-04-20 2019-04-21 [place] [id number] Memoria 15:45:00 04:59:59 r Primary 10 [facility] 2019-04-20 2019-04-20 Outpatient Kiellas, MG [place] [id number] 10:45:00 23:59:59 Edrm Zambrano 2019-04-20 2019-04-20 Outpatient MHIE MHIE [id number] Memoria 10:45:00 10:45:00 Radha Roland 2018-11-04 2018-11-05 Outpatient nullFlavo MHMG [id number] Memoria 18:00:00 04:59:59 r Primary 11 l [facility] 2018-11-04 2018-11-05 Outpatient nullFlavo MHMG [id number] Memoria 18:00:00 04:59:59 r Primary 11 l [facility] 2018-11-04 2018-11-04 Outpatient Marco Antonio, MG MG [id number] 13:00:00 23:59:59 Charles 11 2018-11-04 2018-11-04 Outpatient MHIE MHIE [id number] Memoria 13:00:00 13:00:00 11 rianna [place] 2018-10-22 2018-10-22 Ambulatory nullFlavo MHMG [id number] Memoria 14:30:00 14:30:00 Pre-Reg r Primary 07 l [facility] 2018-10-22 2018-10-22 Ambulatory nullFlavo MHMG [id number] Memoria 14:30:00 14:30:00 Pre-Reg r Primary 07 l [facility] 2018-10-22 2018-10-22 Outpatient MHIE MHIE [id number] Memoria 08:30:00 08:30:00 07 rianna [place] 2018-10-22 2018-10-22 Outpatient Desirae, MG MG [id number] 08:30:00 08:30:00 Edrm Zambrano 2018-10-20 2018-10-21 Between nullFlavo MHMG [id number] Memoria 23:32:03 23:32:03 Visit r Primary [address] [facility] 2018-10-20 2018-10-21 Between nullFlavo MHMG [id number] Memoria 23:32:03 23:32:03 Visit r Primary 13 l [facility] 2018-10-20 2018-10-21 Outpatient MHMG MHMG [id number] 17:32:03 17:32:03 13 2018-10-20 2018-10-21 [place] [id number] Memoria 17:00:00 05:59:59 r Primary [address] [facility] 2018-10-20 2018-10-21 [place] [id number] Memoria 17:00:00 05:59:59 r Primary 08 l [facility] 2018-10-20 2018-10-20 Outpatient Marco Antonio MHMG MHMG [id number] 11:00:00 23:59:59 Charles 08 2018-10-20 2018-10-20 Outpatient MHIE MHIE [id number] Memoria 11:00:00 11:00:00 08 rianna [place] 2018-10-11 2018-10-12 Outpatient nullFlavo MHMG [id number] Memoria 17:30:00 05:59:59 r Primary 09 l [facility] 2018-10-11 2018-10-12 Outpatient nullFlavo MHMG [id number] Memoria 17:30:00 05:59:59 r Primary 09 l [facility] 2018-10-11 2018-10-11 Outpatient YURIY BernardMG MHMG [id number] 11:30:00 23:59:59 Charles 2018-10-11 2018-10-11 Outpatient MHIE MHIE [id number] Memoria 11:30:00 11:30:00 09 [facility] 2018-09-26 2018-09-27 Outpatient nullFlavo [facility] [id number] Memoria 14:17:00 05:59:[address] 2018-09-26 2018-09-27 Outpatient nullFlavo [facility] [id number] Memoria 14:17:00 05:59:[address] 2018-09-26 2018-09-26 Outpatient Levi Nguyen MHSE MHSE [id number] 08:17:00 23:59:00 Bryan 06 2018-09-22 2018-09-24 Phone nullFlavo MHMG [id number] Memoria 20:00:00 05:59:59 Message r Primary 03 l Care [facility]ider [place] 2018-09-22 2018-09-24 Phone nullFlavo MHMG [id number] Memoria 20:00:00 05:59:59 Message r Primary 03 l Care Riley Ruffina Rajiv 2018-09-22 2018-09-23 Outpatient MHMG MHMG [id number] 14:00:00 23:59:59 03 2018-09-22 2018-09-23 Outpatient MHMG MHMG [id number] 14:00:00 23:59:59 03 2018-09-16 2018-09-17 Outpt Diag nullFlavo [facility] [id number] Memoria 12:55:00 05:59:00 Services r Outpatient 01 l Imaging [facility] 2018-09-16 2018-09-17 Outpt Diag nullFlavo [facility] [id number] Memoria 12:55:00 05:59:00 Services r Outpatient 01 Imaging [facility] 2018-09-16 2018-09-16 Outpatient Levi Nguyen MHOIP MHOIP [id number] 06:55:00 23:59:00 Bryan 2018-09-16 2018-09-16 Outpatient Levi Nguyen MHOIP MHOIP [id number] 06:55:00 23:59:00 Bryan 2018-09-12 2018-09-12 Emergency nullFlavo [facility] [id number] Memoria 15:42:00 19:23:[address] 2018-09-12 2018-09-12 Emergency nullFlavo [facility] [id number] Memoria 15:42:00 19:23:[address] 2018-09-12 2018-09-12 Outpatient Malya, MHPL MHPL [id number] 09:42:00 13:23:[address] 2018-09-12 2018-09-12 Outpatient Malya, MHPL MHPL [id number] 09:42:00 13:23:[address] 2018-09-10 2018-09-11 Outpatient nullFlavo MHMG [id number] Memoria 15:00:00 05:59:59 r Primary 05 [facility] 2018-09-10 2018-09-11 Outpatient nullFlavo MHMG [id number] Memoria 15:00:00 05:59:59 r Primary 05 [facility] 2018-09-10 2018-09-10 Outpatient Bernard, MHMG MHMG [id number] 09:00:00 23:59:59 Charles 2018-09-10 2018-09-10 Outpatient Bernard, MHMG MHMG [id number] 09:00:00 23:59:59 Charles 2018-09-10 2018-09-10 Outpatient MHIE MHIE [id number] Memoria 09:00:00 09:00:00 05 rianna Roland 2018-07-23 2018-07-24 Outpatient nullFlavo MHMG [id number] Memoria 16:00:00 05:59:59 r Primary 06 l Care Riley [place] 2018-07-23 2018-07-24 Outpatient nullFlavo MHMG [id number] Memoria 16:00:00 05:59:59 r Primary 06 l Care Riley arciniega [place] 2018-07-23 2018-07-23 Outpatient Nicklas, MHMG MHMG [id number] 10:00:00 23:59:59 Edrm Zambrano 2018-07-23 2018-07-23 Outpatient MHIE MHIE [id number] Memoria 10:00:00 10:00:00 06 [place] 2018-07-01 2018-07-03 Phone nullFlavo MHMG [id number] Memoria 21:08:00 05:59:59 Message r Primary 02 l [facility] 2018-07-01 2018-07-03 Phone nullFlavo MHMG [id number] Memoria 21:08:00 05:59:59 Message r Primary 02 l [facility] 2018-07-01 2018-07-03 Phone nullFlavo MHMG [id number] Memoria 21:04:00 05:59:59 Message r Primary [address] [facility] 2018-07-01 2018-07-03 Phone nullFlavo MHMG [id number] Memoria 21:04:00 05:59:59 Message r Primary [address] [facility] 2018-07-01 2018-07-02 Outpatient MHMG MHMG [id number] 15:08:00 23:59:59 02 2018-07-01 2018-07-02 Outpatient MHMG MHMG [id number] 15:04:00 23:59:59 2018-06-04 2018-06-05 Outpatient nullFlavo MHMG [id number] Memoria 13:30:00 04:59:59 r Primary [address] [facility] 2018-06-04 2018-06-05 Outpatient nullFlavo MHMG [id number] Memoria 13:30:00 04:59:59 r Primary [address] [facility] 2018-06-04 2018-06-04 Outpatient YURIY BernardMG MG [id number] 08:30:00 23:59:59 Charles 04 2018-06-04 2018-06-04 Outpatient MHIE MHIE [id number] Memoria 08:30:00 08:30:00 04 [facility] 2017-08-14 2017-08-15 Outpatient nullFlavo MHMG [id number] Memoria 22:00:00 05:59:59 r Primary [address] [facility] 2017-08-14 2017-08-15 Outpatient nullFlavo MHMG [id number] Memoria 22:00:00 05:59:59 r Primary [address] [facility] 2017-08-14 2017-08-14 Outpatient LESLIE Bernard MG [id number] 16:00:00 23:59:59 Charles 2017-08-14 2017-08-14 Outpatient MHIE MHIE [id number] Memoria 16:00:00 16:00:00 03 [facility] 2017-08-07 2017-08-07 Emergency nullFlavo [facility] [id number] Memoria 16:17:00 23:04:00 zack Roland 01 [facility] 2017-08-07 2017-08-07 Emergency nullFlavo [facility] [id number] Memoria 16:17:00 23:04:00 r Luan 01 [facility] 2017-08-07 2017-08-07 Outpatient Mohamed, MHPL MHPL [id number] 10:17:00 17:04:00 Kiersteniwfabio 01 [place] 2017-06-15 2017-06-15 Outpatient MHIE MHIE [id number] Memoria 15:00:00 15:00:00 02 [facility] 2017-06-15 2017-06-15 Outpatient MHIE MHIE [id number] Memoria 15:00:00 15:00:00 02 rianna [place] 2016-11-14 2016-11-14 Outpatient MHIE MHIE [id number] Memoria 13:30:00 13:30:00 01 rianna [place] 2016-11-14 2016-11-14 Outpatient MHIE MHIE [id number] Memoria 13:30:00 13:30:00 01 rianna [place] 2016-09-22 2016-09-23 Outpt Diag nullFlavo [facility]HS [id number] Memoria 20:48:00 05:59:00 Services r Outpatient 00 l Imaging Luan Gonzalez 2016-09-22 2016-09-23 Outpt Diag nullFlavo [facility] [id number] Memoria 20:48:00 05:59:00 Services r Outpatient 00 l Imaging Luan Gonzalez 2016-09-22 2016-09-22 Outpatient Bernard[id number] 14:48:00 23:59:00 Charles 00 2016-09-12 2016-09-12 Outpatient IE IE [id number] Memoria 13:30:00 13:30:00 00 l Luan 2016-09-12 2016-09-12 [id number] Memoria 13:30:00 13:30:00 00 l Luan Results Test Description Test Time Test Comments Results Result Comments Source URINE AND STOOL 2022-01-07 20:35:00 Test Item Value Reference Range Interpretation Comme nts POC UA Color (test code = POC UA Color) Yellow *NA*(01/07/22 3:35 PM ) [facility] [id number] 20:35:00 Test Item Value Reference Range Interpretation Comments POC UA Turbidity (test Clear *NA*(01/07/22 code = POC UA Turbidity) 3:35 PM) [facility] [id number] 20:35:00 Test Item Value Reference Range Interpretation Comments POC UA SG (test code = *NA*(01/07/22 3:35 PM) POC UA SG) [facility] [id number] 20:35:00 Test Item Value Reference Range Interpretation Comments POC UA pH (test code = POC UA pH) 5.5 1 5.0-8.0 [facility] [id number] 20:35:00 Test Item Value Reference Range Interpretation Comments POC UA Prot (test code = POC Negative mg/dL UA Prot) [facility] [id number] 20:35:00 Test Item Value Reference Range Interpretation Comments POC UA Glu (test code = POC UA Negative mg/dL Glu) [facility] [id number] 20:35:00 Test Item Value Reference Range Interpretation Comments POC UA Ket (test code = POC UA Negative mg/dL Ket) [facility] [id number] 20:35:00 Test Item Value Reference Range Interpretation Comments POC UA Bili (test Negative *NA*(01/07/22 code = POC UA Bili) 3:35 PM) [facility] [id number] 20:35:00 Test Item Value Reference Range Interpretation Comments POC UA Bld (test code Negative *NA*(01/07/22 = POC UA Bld) 3:35 PM) [facility] [id number] 20:35:00 Test Item Value Reference Range Interpretation Comments POC UA Uro (test code = POC UA Uro) 0.2 0.1-1.0 [facility] [id number] 20:35:00 Test Item Value Reference Range Interpretation Comments POC UA Nit (test code Negative *NA*(01/07/22 = POC UA Nit) 3:35 PM) [facility] [id number] 20:35:00 Test Item Value Reference Range Interpretation Comments POC UA LeukEst (test Negative *NA*(01/07/22 code = POC UA LeukEst) 3:35 PM) [facility] [id number] 20:35:00 Test Item Value Reference Range Interpretation Comments POC UA Color (test Yellow *NA*(01/07/22 code = POC UA Color) 3:35 PM) [facility] [id number] 20:35:00 Test Item Value Reference Range Interpretation Comments POC UA Turbidity (test Clear *NA*(01/07/22 code = POC UA Turbidity) 3:35 PM) [facility] [id number] 20:35:00 Test Item Value Reference Range Interpretation Comments POC UA SG (test code = *NA*(01/07/22 3:35 PM) POC UA SG) [facility] [id number] 20:35:00 Test Item Value Reference Range Interpretation Comments POC UA pH (test code = POC UA pH) 5.5 1 5.0-8.0 [facility] [id number] 20:35:00 Test Item Value Reference Range Interpretation Comments POC UA Prot (test code = POC Negative mg/dL UA Prot) [facility] [id number] 20:35:00 Test Item Value Reference Range Interpretation Comments POC UA Glu (test code = POC UA Negative mg/dL Glu) [facility] [id number] 20:35:00 Test Item Value Reference Range Interpretation Comments POC UA Ket (test code = POC UA Negative mg/dL Ket) [facility] AND [id number] 20:35:00 Test Item Value Reference Range Interpretation Comments POC UA Bili (test Negative *NA*(01/07/22 code = POC UA Bili) 3:35 PM) [facility] AND [id number] 20:35:00 Test Item Value Reference Range Interpretation Comments POC UA Bld (test code Negative *NA*(01/07/22 = POC UA Bld) 3:35 PM) [facility] AND [id number] 20:35:00 Test Item Value Reference Range Interpretation Comments POC UA Uro (test code = POC UA Uro) 0.2 0.1-1.0 [facility] AND [id number] 20:35:00 Test Item Value Reference Range Interpretation Comments POC UA Nit (test code Negative *NA*(01/07/22 = POC UA Nit) 3:35 PM) [facility] AND [id number] 20:35:00 Test Item Value Reference Range Interpretation Comments POC UA LeukEst (test Negative *NA*(01/07/22 code = POC UA LeukEst) 3:35 PM) [facility] [id number] 18:40:00 Test Item Value Reference Range Interpretation Comments Albumin Lvl (test code = Albumin Lvl) 4.2 3.6-5.1 [facility] [id number] 18:40:00 Test Item Value Reference Range Interpretation Comments Calcium Lvl (test code = Calcium Lvl) 8.6 8.6-10.4 [facility] [id number] 18:40:00 Test Item Value Reference Range Interpretation Comments Albumin Lvl (test code = Albumin Lvl) 4.2 3.6-5.1 [facility] [id number] 18:40:00 Test Item Value Reference Range Interpretation Comments Calcium Lvl (test code = Calcium Lvl) 8.6 8.6-10.4 [facility] LAB [id number] 21:34:00 Test Item Value Reference Range Interpretation Comments Result 2 (Urine Culture) See Result Comment (test code = Result 2 (Urine Culture)) [facility] [id number] 21:34:00 Test Item Value Reference Range Interpretation Comments Result 2 (Urine Culture) See Result Comment (test code = Result 2 (Urine Culture)) [facility] [id number] 20:56:00 Test Item Value Reference Range Interpretation Comments POC UA Color (test Yellow *NA*(12/17/21 3:56 code = POC UA Color) PM) [facility] [id number] 20:56:00 Test Item Value Reference Range Interpretation Comments POC UA Turbidity (test Clear *NA*(12/17/21 code = POC UA Turbidity) 3:56 PM) [facility] [id number] 20:56:00 Test Item Value Reference Range Interpretation Comments POC UA SG (test code = POC UA SG) 1.025 1 [facility] [id number] 20:56:00 Test Item Value Reference Range Interpretation Comments POC UA pH (test code = POC UA pH) 5.5 1 5.0-8.0 [facility] [id number] 20:56:00 Test Item Value Reference Range Interpretation Comments POC UA Prot (test code = POC Negative mg/dL UA Prot) [facility] [id number] 20:56:00 Test Item Value Reference Range Interpretation Comments POC UA Glu (test code = POC UA Negative mg/dL Glu) [facility] [id number] 20:56:00 Test Item Value Reference Range Interpretation Comments POC UA Ket (test code = POC UA Negative mg/dL Ket) [facility] [id number] 20:56:00 Test Item Value Reference Range Interpretation Comments POC UA Bili (test Negative *NA*(12/17/21 code = POC UA Bili) 3:56 PM) [facility] [id number] 20:56:00 Test Item Value Reference Range Interpretation Comments POC UA Bld (test code Trace *ABN*(12/17/21 3:56 = POC UA Bld) PM) [facility] [id number] 20:56:00 Test Item Value Reference Range Interpretation Comments POC UA Uro (test code = POC UA Uro) 0.2 0.1-1.0 [facility] [id number] 20:56:00 Test Item Value Reference Range Interpretation Comments POC UA Nit (test code Positive *ABN*(12/17/21 = POC UA Nit) 3:56 PM) [facility] [id number] 20:56:00 Test Item Value Reference Range Interpretation Comments POC UA LeukEst (test Small *ABN*(12/17/21 code = POC UA LeukEst) 3:56 PM) [facility] [id number] 20:56:00 Test Item Value Reference Range Interpretation Comments POC UA Color (test Yellow *NA*(12/17/21 3:56 code = POC UA Color) PM) [facility] [id number] 20:56:00 Test Item Value Reference Range Interpretation Comments POC UA Turbidity (test Clear *NA*(12/17/21 code = POC UA Turbidity) 3:56 PM) [facility] [id number] 20:56:00 Test Item Value Reference Range Interpretation Comments POC UA SG (test code = POC UA SG) 1.025 1 [facility] [id number] 20:56:00 Test Item Value Reference Range Interpretation Comments POC UA pH (test code = POC UA pH) 5.5 1 5.0-8.0 [facility] [id number] 20:56:00 Test Item Value Reference Range Interpretation Comments POC UA Prot (test code = POC Negative mg/dL UA Prot) [facility] [id number] 20:56:00 Test Item Value Reference Range Interpretation Comments POC UA Glu (test code = POC UA Negative mg/dL Glu) [facility] [id number] 20:56:00 Test Item Value Reference Range Interpretation Comments POC UA Ket (test code = POC UA Negative mg/dL Ket) [facility] [id number] 20:56:00 Test Item Value Reference Range Interpretation Comments POC UA Bili (test Negative *NA*(12/17/21 code = POC UA Bili) 3:56 PM) [facility] [id number] 20:56:00 Test Item Value Reference Range Interpretation Comments POC UA Bld (test code Trace *ABN*(12/17/21 3:56 = POC UA Bld) PM) [facility] [id number] 20:56:00 Test Item Value Reference Range Interpretation Comments POC UA Uro (test code = POC UA Uro) 0.2 0.1-1.0 [facility] [id number] 20:56:00 Test Item Value Reference Range Interpretation Comments POC UA Nit (test code Positive *ABN*(12/17/21 = POC UA Nit) 3:56 PM) [facility] [id number] 20:56:00 Test Item Value Reference Range Interpretation Comments POC UA LeukEst (test Small *ABN*(12/17/21 code = POC UA LeukEst) 3:56 PM) [facility] [id number] 22:07:00 Test Item Value Reference Range Interpretation Comments Result 2 (Urine Culture) See Result Comment (test code = Result 2 (Urine Culture)) [facility] LAB [id number] 22:07:00 Test Item Value Reference Range Interpretation Comments Result 2 (Urine Culture) See Result Comment (test code = Result 2 (Urine Culture)) [facility] (PORTABLE)2021-10-10 17:32:00 [facility] 1945 [place] [address] Patient Name: AUDELIA ESPARZA MR #: [id number] : 1945 Age/Sex: 76/F Req #: [id number] Adm Physician: Ordered by: LINO CURRAN MD Report #: [id number] Location: ER Room/Bed: Procedure: [id number] DX/CHEST SINGLE (PORTABLE) Exam Date: 10/10/21 Exam Time: 1657 REPORT STATUS: Signed TECHNIQUE: One view of the chest. INDICATION: 76-year-old woman with chest pain in dyspnea. COMPARISON: None. FINDINGS: LINES/TUBES: None. LUNGS: Lungs are well inflated. No consolidation or pulmonary edema. PLEURA: No pneumothorax or significant pleural effusion. HEART AND MEDIASTINUM: Mildly prominent cardiac silhouette. Atherosclerotic calcifications in the thoracic aorta. BONES AND SOFT TISSUES: Unremarkable. IMPRESSION: No acute pulmonary abnormality. Mildly prominent cardiac silhouette. Signed by: Kristie Maddox on 10/10/2021 5:32 PM Dictated By: KRISTIE MADDOX MD 34 Transcribed By: PSCRIBE on 10/10/211731 COPY TO: LINO CURRAN MDBlood leukocytes automated count (number/volume)2021-10-10 16:10:00 Test Item Value Reference Range Interpretation Comments White Blood Count (test code = 6690-2) 8.51 4.8-10.8 [facility] erythrocytes automated count (number/volume)2021-10-10 16:10:00 Test Item Value Reference Range Interpretation Comments Red Blood Count (test code = 789-8) 4.85 3.6-5.1 [facility]Blood hemoglobin measurement (moles/volume) 2021-10-10 16:10:00 Test Item Value Reference Range Interpretation Comments Hemoglobin (test code = 98432-2) 14.4 12.0-16.0 [facility] SystemAutomated blood hematocrit (volume fraction) 2021-10-10 16:10:00 Test Item Value Reference Range Interpretation Comments Hematocrit (test code = 4544-3) 44.4 34.2-44.1 [facility] SystemAutomated erythrocyte mean corpuscular volume 2021-10-10 16:10:00 Test Item Value Reference Range Interpretation Comments Mean Corpuscular Volume (test code = 91.5 81-99 787-2) [facility] SystemAutomated erythrocyte mean corpuscular hemoglobin (mass per erythrocyte)2021-10-10 16:10:00 Test Item Value Reference Range Interpretation Comments Mean Corpuscular Hemoglobin (test code 29.7 28-32 = 785-6) [facility] SystemAutomated erythrocyte mean corpuscular hemoglobin concentration measurement (mass/volume)2021-10-10 16:10:00 Test Item Value Reference Range Interpretation Comments Mean Corpuscular Hemoglobin Concent 32.4 31-35 (test code = 786-4) [facility] SystemRDW QejSd-Iol4735-34-24 16:10:00 Test Item Value Reference Range Interpretation Comments Red Cell Distribution Width (test code 14.0 11.7-14.4 = 35821-9) [facility] SystemAutomated blood platelet count (count/volume) 2021-10-10 16:10:00 Test Item Value Reference Range Interpretation Comments Platelet Count (test code = 777-3) 212 140-360 [facility] SystemAutomated blood segmented neutrophil count as percentage of total giyvibzwin6763-51-93 16:10:00 Test Item Value Reference Range Interpretation Comments Neutrophils (%) (Auto) (test code = 62.8 38.7-80.0 10397-3) [facility] SystemAutomated blood lymphocyte count as percentage ot total ovyoxgymtr2872-67-57 16:10:00 Test Item Value Reference Range Interpretation Comments Lymphocytes (%) (Auto) (test code = 29.8 18.0-39.1 736-9) [facility] SystemAutomated blood monocyte count as percentage of total tmbzipgrgv4104-55-18 16:10:00 Test Item Value Reference Range Interpretation Comments Monocytes (%) (Auto) (test code = 5.2 4.4-11.3 5905-5) [facility] SystemAutomated blood eosinophil count as percentage of total bufpksnxmp8076-83-09 16:10:00 Test Item Value Reference Range Interpretation Comments Eosinophils (%) (Auto) (test code = 1.8 0.0-6.0 713-8) [facility] SystemAutomated blood basophil count as percentage of total uwrbyaxxbz2463-52-97 16:10:00 Test Item Value Reference Range Interpretation Comments Basophils (%) (Auto) (test code = 0.2 0.0-1.0 706-2) [facility] SystemFluoroscopic procedure less than one hour bwkqnops0298-04-15 16:10:00 Test Item Value Reference Range Interpretation Comments IM GRANULOCYTES % (test code = IM 0.2 0.0-1.0 GRANULOCYTES %) [facility] SystemAutomated blood neutrophil nykvw9122-51-32 16:10:00 Test Item Value Reference Range Interpretation Comments Neutrophils # (Auto) (test code = 5.3 2.1-6.9 751-8) [facility] SystemBlood lymphocytes count (number/volume) 2021-10-10 16:10:00 Test Item Value Reference Range Interpretation Comments Lymphocytes # (Auto) (test code = 2.5 1.0-3.2 75411-5) [facility] SystemBlood monocytes automated count (number/volume)2021-10-10 16:10:00 Test Item Value Reference Range Interpretation Comments Monocytes # (Auto) (test code = 742-7) 0.4 0.2-0.8 [facility] SystemAutomated blood eosinophil duvcz4238-02-41 16:10:00 Test Item Value Reference Range Interpretation Comments Eosinophils # (Auto) (test code = 0.2 0.0-0.4 711-2) [facility] SystemAutomated blood basophil count (count/volume) 2021-10-10 16:10:00 Test Item Value Reference Range Interpretation Comments Basophils # (Auto) (test code = 704-7) 0.0 0.0-0.1 [facility] SystemFluoroscopic procedure less than one hour jvwdxjbi7475-72-62 16:10:00 Test Item Value Reference Range Interpretation Comments Absolute Immature Granulocyte (auto 0.02 0-0.1 (test code = Absolute Immature Granulocyte (auto) [facility] sodium [facility] (moles/volume)2021-10-10 16:10:00 Test Item Value Reference Range Interpretation Comments Sodium Level (test code = 2951-2) 138 136-145 [facility]er[facility] potassium measurement (moles/volume)2021-10-10 16:10:00 Test Item Value Reference Range Interpretation Comments Potassium Level (test code = 2823-3) 4.2 3.5-5.1 [facility]er[facility] plasma chloride measurement (moles/volume)2021-10-10 16:10:00 Test Item Value Reference Range Interpretation Comments Chloride Level (test code = 2075-0) 104 98-107 [facility] Hospitalerum [facility] plasma carbon dioxide, total measurement (moles/volume)2021-10-10 16:10:00 Test Item Value Reference Range Interpretation Comments Carbon Dioxide Level (test code = -2027-9) [facility]erum [facility] plasma anion gvj2444-59-40 16:10:00 Test Item Value Reference Range Interpretation Comments Anion Gap (test code = 11210-4) 16.2 8-16 [facility]er[facility] plasma urea nitrogen measurement (mass/volume)2021-10-10 16:10:00 Test Item Value Reference Range Interpretation Comments Blood Urea Nitrogen (test code = 7- 3094-0) [facility]er[facility] creatinine measurement (mass/volume)2021-10-10 16:10:00 Test Item Value Reference Range Interpretation Comments Creatinine (test code = 2160-0) 1.03 0.57-1.11 [facility] Hospitalerum or plasma urea nitrogen/creatinine mass yaguv7416-03-99 16:10:00 Test Item Value Reference Range Interpretation Comments BUN/Creatinine Ratio (test code = 18 6- 3097-3) [facility] SystemEstimated glomerular filtration rate (GFR) xjeldwxaxzyju1256-98-88 16:10:00 Test Item Value Reference Range Interpretation Comments Estimat Glomerular 52 See_Comment [Automat ed message] The Filtration Rate (test system which generated code = 613625753) this resul t transmitted reference range : 60-. The reference r kingsley was not used to int erpret this result as normal/abnormal . [facility] SystemGlucose ogfuvvxwagu1587-18-65 16:10:00 Test Item Value Reference Range Interpretation Comments Glucose Level (test code = EIV9454) 110 74-118 [facility] Hospitalerum [facility] plasma calcium measurement (mass/volume)2021-10-10 16:10:00 Test Item Value Reference Range Interpretation Comments Calcium Level (test code = 61140-7) 8.9 8.4-10.2 [facility] SystemTroponin I measurement by highly sensitive enzyme tncrxegbsjl9703-89-77 16:10:00 Test Item Value Reference Range Interpretation Comments Troponin I (test code = 05845-6) 0.103 0-0.300 [facility] SystemIMMUNOLOGY2021-06-24 15:20:00 Test Item Value Reference Range Interpretation Comments Coronavirus (COVID-19) NIRAV (test NOT DETECTED code = Coronavirus (COVID-19) NIRAV) [facility] SystemBoflhqlOOAEAEVGAS3810-93-13 15:20:00 Test Item Value Reference Range Interpretation Comments Coronavirus (COVID-19) NIRAV (test NOT DETECTED code = Coronavirus (COVID-19) NIRAV) [facility] SystemEcnzblwHJWZEIFQRD4074-14-79 14:29:00 Test Item Value Reference Range Interpretation Comments POC COVID-19 Antigen Not Detected (test code = POC *NA*(02/07/21 9:29 AM) COVID-19 Antigen) [facility] SystemMcpeurtIDTTBZFETZ9914-47-36 14:29:00 Test Item Value Reference Range Interpretation Comments POC COVID-19 Antigen Not Detected (test code = POC *NA*(02/07/21 9:29 AM) COVID-19 Antigen) [facility]Icon[facility] DJJVT3175-20-65 17:16:00 Test Item Value Reference Range Interpretation Comments Glucose Lvl (test code = Glucose Lvl) 81 65-99 [facility] SystemAryaka Networks GEMWQ2874-91-30 17:16:00 Test Item Value Reference Range Interpretation Comments BUN (test code = BUN) 23 7-25 [place] 699591-06-23 17:16:00 Test Item Value Reference Range Interpretation Comments Creatinine Lvl (test code = Creatinine 0.67 0.60-0.93 Lvl) [place] 699591-06-23 17:16:00 Test Item Value Reference Range Interpretation Comments eGFR NON-AFR. MALIAN (test code = 86 eGFR NON-AFR. MALIAN) [place] 699591-06-23 17:16:00 Test Item Value Reference Range Interpretation Comments eGFR (test code = eGFR 100 ) [place] 699591-06-23 17:16:00 Test Item Value Reference Range Interpretation Comments B/C Ratio (test code = B/C NOT APPLICABLE 02-05 Ratio) [place] 699591-06-23 17:16:00 Test Item Value Reference Range Interpretation Comments Sodium Lvl (test code = Sodium Lvl) 139 135-146 [place] 699591-06-23 17:16:00 Test Item Value Reference Range Interpretation Comments Potassium Lvl (test code = Potassium 4.7 3.5-5.3 Lvl) [place] 699591-06-23 17:16:00 Test Item Value Reference Range Interpretation Comments Chloride Lvl (test code = Chloride Lvl) 101 98-110 [place] 699591-06-23 17:16:00 Test Item Value Reference Range Interpretation Comments CO2 (test code = CO2) 32 20-32 [place] 699591-06-23 17:16:00 Test Item Value Reference Range Interpretation Comments Calcium Lvl (test code = Calcium Lvl) 9.4 8.6-10.4 [place] 699591-06-23 17:16:00 Test Item Value Reference Range Interpretation Comments Total Protein (test code = Total 6.9 6.1-8.1 Protein) [place] 699591-06-23 17:16:00 Test Item Value Reference Range Interpretation Comments Albumin Lvl (test code = Albumin Lvl) 4.2 3.6-5.1 [place] 699591-06-23 17:16:00 Test Item Value Reference Range Interpretation Comments Globulin (test code = Globulin) 2.7 1.9-3.7 [facility]2021-06-23 17:16:00 Test Item Value Reference Range Interpretation Comments A/G Ratio (test code = A/G Ratio) 1.6 1.0-2.5 [place] 699591-06-23 17:16:00 Test Item Value Reference Range Interpretation Comments Bili Total (test code = Bili Total) 0.3 0.2-1.2 [place] 699591-06-23 17:16:00 Test Item Value Reference Range Interpretation Comments Alk Phos (test code = Alk Phos) 63 37-153 [facility]2021-06-23 17:16:00 Test Item Value Reference Range Interpretation Comments ASPARTATE TRANSAMINASE (test code = 20 10-35 ASPARTATE TRANSAMINASE) [place] 699591-06-23 17:16:00 Test Item Value Reference Range Interpretation Comments ALANINE AMINOTRANSFERASE (test code = 28 6-29 ALANINE AMINOTRANSFERASE) [place] 070991-06-23 17:16:00 Test Item Value Reference Range Interpretation Comments WBC X 10x3 (test code = WBC X 10x3) 5.9 3.8-10.8 [place] 070991-06-23 17:16:00 Test Item Value Reference Range Interpretation Comments RBC X 10x6 (test code = RBC X 10x6) 4.29 3.80-5.10 [place] 070991-06-23 17:16:00 Test Item Value Reference Range Interpretation Comments Hgb (test code = Hgb) 13.2 11.7-15.5 [place] 070991-06-23 17:16:00 Test Item Value Reference Range Interpretation Comments Hct (test code = Hct) 39.4 35.0-45.0 [place] 070991-06-23 17:16:00 Test Item Value Reference Range Interpretation Comments MCV (test code = MCV) 91.8 80.0-100.0 [place] 070991-06-23 17:16:00 Test Item Value Reference Range Interpretation Comments MCH (test code = MCH) 30.8 pg 27.0-33.0 [place] 070991-06-23 17:16:00 Test Item Value Reference Range Interpretation Comments MCHC (test code = MCHC) 33.5 32.0-36.0 [facility] CampusThubheyHCZQTLRFKJ5314-59-42 17:16:00 Test Item Value Reference Range Interpretation Comments RDW (test code = RDW) 15.0 11.0-15.0 [facility] CampusGuvchluOBNCCHFCSM8517-92-15 17:16:00 Test Item Value Reference Range Interpretation Comments Platelet (test code = Platelet) 196 140-400 [facility] CampusDrttuwdQZBBDQKAEF3378-46-11 17:16:00 Test Item Value Reference Range Interpretation Comments MPV (test code = MPV) 10.9 7.5-12.5 [place] 070991-06-23 17:16:00 Test Item Value Reference Range Interpretation Comments Neutrophils # (test code = Neutrophils 3794 0667-4008 #) [facility] CampusJjfryufPYPEDCVLYW0114-58-68 17:16:00 Test Item Value Reference Range Interpretation Comments Lymphocytes # (test code = Lymphocytes 7151 303-9990 #) [facility] CampusYajbanqYXFMHUHBWO6627-46-90 17:16:00 Test Item Value Reference Range Interpretation Comments Monocytes # (test code = Monocytes #) 525 200-950 [facility] CampusSmwdsvjRUJMAGSMNG2802-11-37 17:16:00 Test Item Value Reference Range Interpretation Comments Eosinophils # (test code = Eosinophils 201 15-500 #) [facility] CampusWqeplkfTAMVBKLSJD8333-16-73 17:16:00 Test Item Value Reference Range Interpretation Comments Basophils # (test code 59 See_Comment [Aut omated message] The = Basophils #) system which generated this result tra nsmitted reference range : <=200. The reference r kingsley was not used to int erpret this result as normal/abnormal . [facility] CampusZreeekkZXKAYVKLNH3414-24-20 17:16:00 Test Item Value Reference Range Interpretation Comments Segs (test code = Segs) 64.3 [facility] CampusHphewsjRPQCVZLXMY7301-70-42 17:16:00 Test Item Value Reference Range Interpretation Comments Lymphocytes (test code = Lymphocytes) 22.4 [place] 070991-06-23 17:16:00 Test Item Value Reference Range Interpretation Comments Monocytes (test code = Monocytes) 8.9 [place] 070991-06-23 17:16:00 Test Item Value Reference Range Interpretation Comments Eosinophils (test code = Eosinophils) 3.4 [facility] CampusVryvrhuPGMVWKREBY8488-67-04 17:16:00 Test Item Value Reference Range Interpretation Comments Basophils (test code = Basophils) 1.0 [facility] SystemREF[facility] XWWPZQP2474-58-10 17:16:00 Test Item Value Reference Range Interpretation Comments Result 2 (Urine Culture) See Result Comment (test code = Result 2 (Urine Culture)) [facility] AND [id number] 17:16:00 Test Item Value Reference Range Interpretation Comments UA Color (test code = UA Color) YELLOW [facility] AND DPGQT9706-28-54 17:16:00 Test Item Value Reference Range Interpretation Comments UA Turbidity (test code = UA Turbidity) CLEAR [facility] AND DKAJA0016-02-86 17:16:00 Test Item Value Reference Range Interpretation Comments UA Spec Grav (test code = UA Spec 1.010 1 1.001-1.035 Grav) [facility] AND [id number] 17:16:00 Test Item Value Reference Range Interpretation Comments UA pH (test code = UA pH) 7.0 1 5.0-8.0 [facility] AND [id number] 17:16:00 Test Item Value Reference Range Interpretation Comments UA Glucose (test code = UA Glucose) NEGATIVE [facility] AND [id number] 17:16:00 Test Item Value Reference Range Interpretation Comments UA Bili (test code = UA Bili) NEGATIVE [facility] AND [id number] 17:16:00 Test Item Value Reference Range Interpretation Comments UA Ketones (test code = UA Ketones) NEGATIVE [facility] AND HSEVZ9507-16-16 17:16:00 Test Item Value Reference Range Interpretation Comments UA Blood (test code = UA Blood) NEGATIVE [facility] AND [id number] 17:16:00 Test Item Value Reference Range Interpretation Comments UA Protein (test code = UA Protein) NEGATIVE [facility] [id number] 17:16:00 Test Item Value Reference Range Interpretation Comments UA Nitrite (test code = UA Nitrite) NEGATIVE [facility] AND [id number] 17:16:00 Test Item Value Reference Range Interpretation Comments UA Leuk Est (test code = UA Leuk NEGATIVE Est) [facility] AND [id number] 17:16:00 Test Item Value Reference Range Interpretation Comments UA WBC (test code = UA WBC) NONE SEEN [facility] [id number] 17:16:00 Test Item Value Reference Range Interpretation Comments UA RBC (test code = UA RBC) NONE SEEN [facility] AND [id number] 17:16:00 Test Item Value Reference Range Interpretation Comments UA Sq Epi (test code = UA Sq Epi) NONE SEEN [facility] AND [id number] 17:16:00 Test Item Value Reference Range Interpretation Comments UA Bacteria (test code = UA NONE SEEN Bacteria) [facility] AND [id number] 17:16:00 Test Item Value Reference Range Interpretation Comments UA Hyal Cast (test code = UA Hyal NONE SEEN Cast) [facility]2021-06-23 17:16:00 Test Item Value Reference Range Interpretation Comments Glucose Lvl (test code = Glucose Lvl) 81 65-99 [facility]2021-06-23 17:16:00 Test Item Value Reference Range Interpretation Comments BUN (test code = BUN) 23 7-25 [facility]2021-06-23 17:16:00 Test Item Value Reference Range Interpretation Comments Creatinine Lvl (test code = Creatinine 0.67 0.60-0.93 Lvl) [facility]2021-06-23 17:16:00 Test Item Value Reference Range Interpretation Comments eGFR NON-AFR. MALIAN (test code = 86 eGFR NON-AFR. MALIAN) [facility]2021-06-23 17:16:00 Test Item Value Reference Range Interpretation Comments eGFR (test code = eGFR 100 ) [facility]2021-06-23 17:16:00 Test Item Value Reference Range Interpretation Comments B/C Ratio (test code = B/C NOT APPLICABLE 02-05 Ratio) [facility]2021-06-23 17:16:00 Test Item Value Reference Range Interpretation Comments Sodium Lvl (test code = Sodium Lvl) 139 135-146 [facility]2021-06-23 17:16:00 Test Item Value Reference Range Interpretation Comments Potassium Lvl (test code = Potassium 4.7 3.5-5.3 Lvl) [facility]2021-06-23 17:16:00 Test Item Value Reference Range Interpretation Comments Chloride Lvl (test code = Chloride Lvl) 101 98-110 [place] 699591-06-23 17:16:00 Test Item Value Reference Range Interpretation Comments CO2 (test code = CO2) 32 20-32 [place] 699591-06-23 17:16:00 Test Item Value Reference Range Interpretation Comments Calcium Lvl (test code = Calcium Lvl) 9.4 8.6-10.4 [place] 699591-06-23 17:16:00 Test Item Value Reference Range Interpretation Comments Total Protein (test code = Total 6.9 6.1-8.1 Protein) [facility]2021-06-23 17:16:00 Test Item Value Reference Range Interpretation Comments Albumin Lvl (test code = Albumin Lvl) 4.2 3.6-5.1 [place] 699591-06-23 17:16:00 Test Item Value Reference Range Interpretation Comments Globulin (test code = Globulin) 2.7 1.9-3.7 [place] 699591-06-23 17:16:00 Test Item Value Reference Range Interpretation Comments A/G Ratio (test code = A/G Ratio) 1.6 1.0-2.5 [place] 699591-06-23 17:16:00 Test Item Value Reference Range Interpretation Comments Bili Total (test code = Bili Total) 0.3 0.2-1.2 [place] 699591-06-23 17:16:00 Test Item Value Reference Range Interpretation Comments Alk Phos (test code = Alk Phos) 63 37-153 [place] 699591-06-23 17:16:00 Test Item Value Reference Range Interpretation Comments ASPARTATE TRANSAMINASE (test code = 20 10-35 ASPARTATE TRANSAMINASE) [place] 699591-06-23 17:16:00 Test Item Value Reference Range Interpretation Comments ALANINE AMINOTRANSFERASE (test code = 28 6-29 ALANINE AMINOTRANSFERASE) [place] 070991-06-23 17:16:00 Test Item Value Reference Range Interpretation Comments WBC X 10x3 (test code = WBC X 10x3) 5.9 3.8-10.8 [place] 070991-06-23 17:16:00 Test Item Value Reference Range Interpretation Comments RBC X 10x6 (test code = RBC X 10x6) 4.29 3.80-5.10 [place] 070991-06-23 17:16:00 Test Item Value Reference Range Interpretation Comments Hgb (test code = Hgb) 13.2 11.7-15.5 [facility] CampusQzurqqgTCPCINTOHS1769-41-45 17:16:00 Test Item Value Reference Range Interpretation Comments Hct (test code = Hct) 39.4 35.0-45.0 [facility] CampusVwykuyhBHNZDWIMCA5679-62-64 17:16:00 Test Item Value Reference Range Interpretation Comments MCV (test code = MCV) 91.8 80.0-100.0 [facility] CampusEisovchQOWNEWIIID6445-85-63 17:16:00 Test Item Value Reference Range Interpretation Comments MCH (test code = MCH) 30.8 pg 27.0-33.0 [facility] CampusKatwsmjFCNHAJYQHX0978-98-05 17:16:00 Test Item Value Reference Range Interpretation Comments MCHC (test code = MCHC) 33.5 32.0-36.0 [facility] CampusXlysajqZFBSMKDYDH7884-68-27 17:16:00 Test Item Value Reference Range Interpretation Comments RDW (test code = RDW) 15.0 11.0-15.0 [facility] CampusQjgtpyrRSRTEKJETT5521-87-54 17:16:00 Test Item Value Reference Range Interpretation Comments Platelet (test code = Platelet) 196 140-400 [facility] CampusCuzqtjbODWQRGQYIO2422-03-57 17:16:00 Test Item Value Reference Range Interpretation Comments MPV (test code = MPV) 10.9 7.5-12.5 [facility] CampusMuhckosNEQDDNXAHL8118-14-31 17:16:00 Test Item Value Reference Range Interpretation Comments Neutrophils # (test code = Neutrophils 3794 [phone] #) [facility] CampusXlwpuraNZVXLFKCVU3519-09-58 17:16:00 Test Item Value Reference Range Interpretation Comments Lymphocytes # (test code = Lymphocytes 9682 508-2630 #) [facility] CampusZtcwjdxIARIIWDVGL1487-50-37 17:16:00 Test Item Value Reference Range Interpretation Comments Monocytes # (test code = Monocytes #) 525 200-950 [facility] CampusWzgxfjvAHJMUUYPBQ3422-05-92 17:16:00 Test Item Value Reference Range Interpretation Comments Eosinophils # (test code = Eosinophils 201 15-500 #) [facility] CampusDxaepebMWAUDRKTYN9527-06-60 17:16:00 Test Item Value Reference Range Interpretation Comments Basophils # (test code 59 See_Comment [Aut omated message] The = Basophils #) system which generated this result tra nsmitted reference range : <=200. The reference r kingsley was not used to int erpret this result as normal/abnormal . [facility]JgkxtcfTDPSDZGCHM3430-70-83 17:16:00 Test Item Value Reference Range Interpretation Comments Segs (test code = Segs) 64.3 [facility] HospitalUzatawoPHTDYHWPPJ9400-58-60 17:16:00 Test Item Value Reference Range Interpretation Comments Lymphocytes (test code = Lymphocytes) 22.4 [facility] HospitalDygtjbmGKFYXTLXHE2384-22-82 17:16:00 Test Item Value Reference Range Interpretation Comments Monocytes (test code = Monocytes) 8.9 [facility] HospitalBjptwdqHZLENVTVOI6580-85-98 17:16:00 Test Item Value Reference Range Interpretation Comments Eosinophils (test code = Eosinophils) 3.4 [id number] 17:16:00 Test Item Value Reference Range Interpretation Comments Basophils (test code = Basophils) 1.0 [facility] [id number] 17:16:00 Test Item Value Reference Range Interpretation Comments Result 2 (Urine Culture) See Result Comment (test code = Result 2 (Urine Culture)) [facility] AND [id number] 17:16:00 Test Item Value Reference Range Interpretation Comments UA Color (test code = UA Color) YELLOW [facility] AND [id number] 17:16:00 Test Item Value Reference Range Interpretation Comments UA Turbidity (test code = UA Turbidity) CLEAR [facility] AND [id number] 17:16:00 Test Item Value Reference Range Interpretation Comments UA Spec Grav (test code = UA Spec 1.010 1 1.001-1.035 Grav) [facility] AND [id number] 17:16:00 Test Item Value Reference Range Interpretation Comments UA pH (test code = UA pH) 7.0 1 5.0-8.0 [facility] [id number] 17:16:00 Test Item Value Reference Range Interpretation Comments UA Glucose (test code = UA Glucose) NEGATIVE [facility] AND [id number] 17:16:00 Test Item Value Reference Range Interpretation Comments UA Bili (test code = UA Bili) NEGATIVE [facility] AND [id number] 17:16:00 Test Item Value Reference Range Interpretation Comments UA Ketones (test code = UA Ketones) NEGATIVE [facility] AND [id number] 17:16:00 Test Item Value Reference Range Interpretation Comments UA Blood (test code = UA Blood) NEGATIVE [facility] AND [id number] 17:16:00 Test Item Value Reference Range Interpretation Comments UA Protein (test code = UA Protein) NEGATIVE [facility] AND [id number] 17:16:00 Test Item Value Reference Range Interpretation Comments UA Nitrite (test code = UA Nitrite) NEGATIVE [facility] AND [id number] 17:16:00 Test Item Value Reference Range Interpretation Comments UA Leuk Est (test code = UA Leuk NEGATIVE Est) [facility] AND [id number] 17:16:00 Test Item Value Reference Range Interpretation Comments UA WBC (test code = UA WBC) NONE SEEN [facility] AND [id number] 17:16:00 Test Item Value Reference Range Interpretation Comments UA RBC (test code = UA RBC) NONE SEEN [facility] AND [id number] 17:16:00 Test Item Value Reference Range Interpretation Comments UA Sq Epi (test code = UA Sq Epi) NONE SEEN [facility] AND [id number] 17:16:00 Test Item Value Reference Range Interpretation Comments UA Bacteria (test code = UA NONE SEEN Bacteria) [facility] AND [id number] 17:16:00 Test Item Value Reference Range Interpretation Comments UA Hyal Cast (test code = UA Hyal NONE SEEN Cast) [facility] [id number] 19:09:00 Test Item Value Reference Range Interpretation Comments Glucose Lvl (test code = Glucose Lvl) 77 65-99 [facility] [id number] 19:09:00 Test Item Value Reference Range Interpretation Comments BUN (test code = BUN) 16 7-25 [facility] [id number] 19:09:00 Test Item Value Reference Range Interpretation Comments Creatinine Lvl (test code = Creatinine 0.89 0.60-0.93 Lvl) [facility] [id number] 19:09:00 Test Item Value Reference Range Interpretation Comments eGFR NON-AFR. MALIAN (test code = 63 eGFR NON-AFR. MALIAN) [facility]annRUT[facility] [id number] 19:09:00 Test Item Value Reference Range Interpretation Comments eGFR (test code = eGFR 73 ) [facility]2020-12-16 19:09:00 Test Item Value Reference Range Interpretation Comments B/C Ratio (test code = B/C NOT APPLICABLE 02-05 Ratio) [facility]2020-12-16 19:09:00 Test Item Value Reference Range Interpretation Comments Sodium Lvl (test code = Sodium Lvl) 142 135-146 [facility]2020-12-16 19:09:00 Test Item Value Reference Range Interpretation Comments Potassium Lvl (test code = Potassium 4.3 3.5-5.3 Lvl) [facility] HospitalDesalitechRUTHERFORD REGIONAL HEALTH [id number] 19:09:00 Test Item Value Reference Range Interpretation Comments Chloride Lvl (test code = Chloride Lvl) 101 98-110 [facility] HospitalDesalitechRUTHERFORD REGIONAL HEALTH [id number] 19:09:00 Test Item Value Reference Range Interpretation Comments CO2 (test code = CO2) 31 20-32 [facility]2020-12-16 19:09:00 Test Item Value Reference Range Interpretation Comments Calcium Lvl (test code = Calcium Lvl) 9.5 8.6-10.4 [facility]2020-12-16 19:09:00 Test Item Value Reference Range Interpretation Comments Total Protein (test code = Total 7.0 6.1-8.1 Protein) [facility]2020-12-16 19:09:00 Test Item Value Reference Range Interpretation Comments Albumin Lvl (test code = Albumin Lvl) 4.6 3.6-5.1 [facility]2020-12-16 19:09:00 Test Item Value Reference Range Interpretation Comments Globulin (test code = Globulin) 2.4 1.9-3.7 [place] [id number] 19:09:00 Test Item Value Reference Range Interpretation Comments A/G Ratio (test code = A/G Ratio) 1.9 1.0-2.5 [place] [id number] 19:09:00 Test Item Value Reference Range Interpretation Comments Bili Total (test code = Bili Total) 0.4 0.2-1.2 [place] [id number] 19:09:00 Test Item Value Reference Range Interpretation Comments Alk Phos (test code = Alk Phos) 56 37-153 [facility]2020-12-16 19:09:00 Test Item Value Reference Range Interpretation Comments ASPARTATE TRANSAMINASE (test code = 21 10-35 ASPARTATE TRANSAMINASE) [facility]2020-12-16 19:09:00 Test Item Value Reference Range Interpretation Comments ALANINE AMINOTRANSFERASE (test code = 14 6-29 ALANINE AMINOTRANSFERASE) [facility] [id number] 19:09:00 Test Item Value Reference Range Interpretation Comments WBC X 10x3 (test code = WBC X 10x3) 4.4 3.8-10.8 [facility] CampusDkejpzbSUSMNOPMEH0205-92-27 19:09:00 Test Item Value Reference Range Interpretation Comments RBC X 10x6 (test code = RBC X 10x6) 4.42 3.80-5.10 [facility] CampusYxtvdtaRJXHJFOOMQ5557-37-28 19:09:00 Test Item Value Reference Range Interpretation Comments Hgb (test code = Hgb) 13.6 11.7-15.5 [facility] C[id number] 19:09:00 Test Item Value Reference Range Interpretation Comments Hct (test code = Hct) 40.8 35.0-45.0 [facility] [id number] 19:09:00 Test Item Value Reference Range Interpretation Comments MCV (test code = MCV) 92.3 80.0-100.0 [facility] [id number] 19:09:00 Test Item Value Reference Range Interpretation Comments MCH (test code = MCH) 30.8 pg 27.0-33.0 [facility] CampusZqnexisUJCHDCLSSS7026-32-56 19:09:00 Test Item Value Reference Range Interpretation Comments MCHC (test code = MCHC) 33.3 32.0-36.0 [facility] CampusKjevhdnBCPTQZCJWR1882-13-83 19:09:00 Test Item Value Reference Range Interpretation Comments RDW (test code = RDW) 14.7 11.0-15.0 [facility] CampusPfwydvpERKMNCTQBH0936-53-06 19:09:00 Test Item Value Reference Range Interpretation Comments Platelet (test code = Platelet) 140 140-400 [facility] Camp[id number] 19:09:00 Test Item Value Reference Range Interpretation Comments MPV (test code = MPV) 11.6 7.5-12.5 [facility] CampusMuqdugdAWPTXCUFKJ5495-45-73 19:09:00 Test Item Value Reference Range Interpretation Comments Neutrophils # (test code = Neutrophils 2917 4169-1551 #) [facility] CampusOpzxprqKIMHFFWIVJ9846-54-47 19:09:00 Test Item Value Reference Range Interpretation Comments Lymphocytes # (test code = Lymphocytes 371 496-6191 #) [facility] CampusSkmklpxTQSHQGOVPF0057-53-05 19:09:00 Test Item Value Reference Range Interpretation Comments Monocytes # (test code = Monocytes #) 493 200-950 [facility] CampusNpmuiogDDQPNKIMEM1089-04-25 19:09:00 Test Item Value Reference Range Interpretation Comments Eosinophils # (test code = Eosinophils 141 15-500 #) [facility] CampusXuibnzlFGYSAMFEUT2228-16-08 19:09:00 Test Item Value Reference Range Interpretation Comments Basophils # (test code 62 See_Comment [Aut omated message] The = Basophils #) system which generated this result tra nsmitted reference range : <=200. The reference r kingsley was not used to int erpret this result as normal/abnormal . [facility] C[id number] 19:09:00 Test Item Value Reference Range Interpretation Comments Segs (test code = Segs) 66.3 [facility] CampusRztmblgBWANFIZRTL1756-10-30 19:09:00 Test Item Value Reference Range Interpretation Comments Lymphocytes (test code = Lymphocytes) 17.9 [facility] CampusKcfuoyfWQCECZDWVT9574-61-28 19:09:00 Test Item Value Reference Range Interpretation Comments Monocytes (test code = Monocytes) 11.2 [facility] CampusBjusnfdPAZNBXDCIW9216-35-90 19:09:00 Test Item Value Reference Range Interpretation Comments Eosinophils (test code = Eosinophils) 3.2 [facility] CampusOmbptyzKVGBIDTQXL9794-52-32 19:09:00 Test Item Value Reference Range Interpretation Comments Basophils (test code = Basophils) 1.4 [facility] SystemCHEM [id number] 19:09:00 Test Item Value Reference Range Interpretation Comments Glucose Lvl (test code = Glucose Lvl) 77 65-99 [facility]2020-12-16 19:09:00 Test Item Value Reference Range Interpretation Comments BUN (test code = BUN) 16 7-25 [facility]2020-12-16 19:09:00 Test Item Value Reference Range Interpretation Comments Creatinine Lvl (test code = Creatinine 0.89 0.60-0.93 Lvl) [facility]2020-12-16 19:09:00 Test Item Value Reference Range Interpretation Comments eGFR NON-AFR. MALIAN (test code = 63 eGFR NON-AFR. MALIAN) [place] 699590-12-16 19:09:00 Test Item Value Reference Range Interpretation Comments eGFR (test code = eGFR 73 ) [facility]2020-12-16 19:09:00 Test Item Value Reference Range Interpretation Comments B/C Ratio (test code = B/C NOT APPLICABLE 622 Ratio) [place] [address]-12-16 19:09:00 Test Item Value Reference Range Interpretation Comments Sodium Lvl (test code = Sodium Lvl) 142 135-146 [facility]2020-12-16 19:09:00 Test Item Value Reference Range Interpretation Comments Potassium Lvl (test code = Potassium 4.3 3.5-5.3 Lvl) [facility]2020-12-16 19:09:00 Test Item Value Reference Range Interpretation Comments Chloride Lvl (test code = Chloride Lvl) 101 98-110 [place] 699590-12-16 19:09:00 Test Item Value Reference Range Interpretation Comments CO2 (test code = CO2) 31 20-32 [place] 699590-12-16 19:09:00 Test Item Value Reference Range Interpretation Comments Calcium Lvl (test code = Calcium Lvl) 9.5 8.6-10.4 [place] 699590-12-16 19:09:00 Test Item Value Reference Range Interpretation Comments Total Protein (test code = Total 7.0 6.1-8.1 Protein) [place] 699590-12-16 19:09:00 Test Item Value Reference Range Interpretation Comments Albumin Lvl (test code = Albumin Lvl) 4.6 3.6-5.1 [place] 699590-12-16 19:09:00 Test Item Value Reference Range Interpretation Comments Globulin (test code = Globulin) 2.4 1.9-3.7 [place] 699590-12-16 19:09:00 Test Item Value Reference Range Interpretation Comments A/G Ratio (test code = A/G Ratio) 1.9 1.0-2.5 [facility]2020-12-16 19:09:00 Test Item Value Reference Range Interpretation Comments Bili Total (test code = Bili Total) 0.4 0.2-1.2 [facility]2020-12-16 19:09:00 Test Item Value Reference Range Interpretation Comments Alk Phos (test code = Alk Phos) 56 37-153 [facility]2020-12-16 19:09:00 Test Item Value Reference Range Interpretation Comments ASPARTATE TRANSAMINASE (test code = 21 10-35 ASPARTATE TRANSAMINASE) [facility]2020-12-16 19:09:00 Test Item Value Reference Range Interpretation Comments ALANINE AMINOTRANSFERASE (test code = 14 6-29 ALANINE AMINOTRANSFERASE) [facility] CampusFfwfxswLBDLOXYAEO6267-66-97 19:09:00 Test Item Value Reference Range Interpretation Comments WBC X 10x3 (test code = WBC X 10x3) 4.4 3.8-10.8 [facility] CampusFnydpwjSHGYONSVIP1490-49-44 19:09:00 Test Item Value Reference Range Interpretation Comments RBC X 10x6 (test code = RBC X 10x6) 4.42 3.80-5.10 [facility] CampusRmjxdelSWMEFGJPDP5050-25-80 19:09:00 Test Item Value Reference Range Interpretation Comments Hgb (test code = Hgb) 13.6 11.7-15.5 [facility] CampusZgijbnpRQFHDJLJKN8508-56-87 19:09:00 Test Item Value Reference Range Interpretation Comments Hct (test code = Hct) 40.8 35.0-45.0 [facility] CampusXrsyocyJCKUJGBJTH9414-68-97 19:09:00 Test Item Value Reference Range Interpretation Comments MCV (test code = MCV) 92.3 80.0-100.0 [facility] CampusTbpftqeJKDHCMNNBJ4972-75-62 19:09:00 Test Item Value Reference Range Interpretation Comments MCH (test code = MCH) 30.8 pg 27.0-33.0 [facility] CampusSidsirwJRVPKMSTXG5839-88-16 19:09:00 Test Item Value Reference Range Interpretation Comments MCHC (test code = MCHC) 33.3 32.0-36.0 [facility] CampusXqnccbuKPIMFUBTDI8429-36-46 19:09:00 Test Item Value Reference Range Interpretation Comments RDW (test code = RDW) 14.7 11.0-15.0 [facility] HospitalGwoldrlJTDCHHOVJS1535-63-28 19:09:00 Test Item Value Reference Range Interpretation Comments Platelet (test code = Platelet) 140 140-400 [facility] SystemGsajqceIOSQIBTDOZ7449-83-14 19:09:00 Test Item Value Reference Range Interpretation Comments MPV (test code = MPV) 11.6 7.5-12.5 [facility] HospitalYmitgwvXWVKVQANNS9845-55-16 19:09:00 Test Item Value Reference Range Interpretation Comments Neutrophils # (test code = Neutrophils 2917 2615-7151 #) [facility] HospitalRaqavijRAZXJVQXZC5018-60-77 19:09:00 Test Item Value Reference Range Interpretation Comments Lymphocytes # (test code = Lymphocytes 517 004-5261 #) [facility] HospitalMvtakdoLMEWJKUVZR9971-24-79 19:09:00 Test Item Value Reference Range Interpretation Comments Monocytes # (test code = Monocytes #) 493 200-950 [facility] HospitalFxixlipGWBIJZQGEN9121-82-84 19:09:00 Test Item Value Reference Range Interpretation Comments Eosinophils # (test code = Eosinophils 141 15-500 #) [facility] HospitalHzhgyzaONTWWKQHTX4435-40-17 19:09:00 Test Item Value Reference Range Interpretation Comments Basophils # (test code 62 See_Comment [Aut omated message] The = Basophils #) system which generated this result tra nsmitted reference range : <=200. The reference r kingsley was not used to int erpret this result as normal/abnormal . [facility] HospitalJriapalMFYNQFXIWD3448-85-28 19:09:00 Test Item Value Reference Range Interpretation Comments Segs (test code = Segs) 66.3 [facility] HospitalTjhiyqgEYXDJJBRNY2708-73-96 19:09:00 Test Item Value Reference Range Interpretation Comments Lymphocytes (test code = Lymphocytes) 17.9 [facility] SystemXsioghhKGCXKJXHHV6947-77-46 19:09:00 Test Item Value Reference Range Interpretation Comments Monocytes (test code = Monocytes) 11.2 [facility] HospitalHboybcbQZLOJYBSGQ3573-74-50 19:09:00 Test Item Value Reference Range Interpretation Comments Eosinophils (test code = Eosinophils) 3.2 [facility] HospitalJxgkfunCOCCOGLXOE7047-02-36 19:09:00 Test Item Value Reference Range Interpretation Comments Basophils (test code = Basophils) 1.4 [facility] LAB [id number] 19:07:00 Test Item Value Reference Range Interpretation Comments Result 2 (Urine Culture) See Result Comment (test code = Result 2 (Urine Culture)) [facility] [id number] 19:07:00 Test Item Value Reference Range Interpretation Comments UA Color (test code = UA Color) YELLOW [facility] [id number] 19:07:00 Test Item Value Reference Range Interpretation Comments UA Turbidity (test code = UA Turbidity) CLEAR [facility] [id number] 19:07:00 Test Item Value Reference Range Interpretation Comments UA Spec Grav (test code = UA Spec 1.006 1 1.001-1.035 Grav) [facility] [id number] 19:07:00 Test Item Value Reference Range Interpretation Comments UA pH (test code = UA pH) 7.0 1 5.0-8.0 [facility] [id number] 19:07:00 Test Item Value Reference Range Interpretation Comments UA Glucose (test code = UA Glucose) NEGATIVE [facility] [id number] 19:07:00 Test Item Value Reference Range Interpretation Comments UA Bili (test code = UA Bili) NEGATIVE [facility] [id number] 19:07:00 Test Item Value Reference Range Interpretation Comments UA Ketones (test code = UA Ketones) NEGATIVE [facility] [id number] 19:07:00 Test Item Value Reference Range Interpretation Comments UA Blood (test code = UA Blood) NEGATIVE [facility] [id number] 19:07:00 Test Item Value Reference Range Interpretation Comments UA Protein (test code = UA Protein) NEGATIVE [facility] [id number] 19:07:00 Test Item Value Reference Range Interpretation Comments UA Nitrite (test code = UA Nitrite) NEGATIVE [facility] [id number] 19:07:00 Test Item Value Reference Range Interpretation Comments UA Leuk Est (test code = UA Leuk NEGATIVE Est) [facility] [id number] 19:07:00 Test Item Value Reference Range Interpretation Comments UA WBC (test code = UA WBC) NONE SEEN [facility] [id number] 19:07:00 Test Item Value Reference Range Interpretation Comments UA RBC (test code = UA RBC) NONE SEEN [facility] [id number] 19:07:00 Test Item Value Reference Range Interpretation Comments UA Sq Epi (test code = UA Sq Epi) NONE [facility]EN [facility] [id number] 19:07:00 Test Item Value Reference Range Interpretation Comments UA Bacteria (test code = UA Bacteria) MANY [facility] [id number] 19:07:00 Test Item Value Reference Range Interpretation Comments UA Hyal Cast (test code = UA Hyal NONE SEEN Cast) [facility] [id number] 19:07:00 Test Item Value Reference Range Interpretation Comments Result 2 (Urine Culture) See Result Comment (test code = Result 2 (Urine Culture)) [facility] AND [id number] 19:07:00 Test Item Value Reference Range Interpretation Comments UA Color (test code = UA Color) YELLOW [facility] AND [id number] 19:07:00 Test Item Value Reference Range Interpretation Comments UA Turbidity (test code = UA Turbidity) CLEAR [facility] AND [id number] 19:07:00 Test Item Value Reference Range Interpretation Comments UA Spec Grav (test code = UA Spec 1.006 1 1.001-1.035 Grav) [facility] AND [id number] 19:07:00 Test Item Value Reference Range Interpretation Comments UA pH (test code = UA pH) 7.0 1 5.0-8.0 [facility] AND [id number] 19:07:00 Test Item Value Reference Range Interpretation Comments UA Glucose (test code = UA Glucose) NEGATIVE [facility] [id number] 19:07:00 Test Item Value Reference Range Interpretation Comments UA Bili (test code = UA Bili) NEGATIVE [facility] [id number] 19:07:00 Test Item Value Reference Range Interpretation Comments UA Ketones (test code = UA Ketones) NEGATIVE [facility] [id number] 19:07:00 Test Item Value Reference Range Interpretation Comments UA Blood (test code = UA Blood) NEGATIVE [facility] [id number] 19:07:00 Test Item Value Reference Range Interpretation Comments UA Protein (test code = UA Protein) NEGATIVE [facility] [id number] 19:07:00 Test Item Value Reference Range Interpretation Comments UA Nitrite (test code = UA Nitrite) NEGATIVE [facility] [id number] 19:07:00 Test Item Value Reference Range Interpretation Comments UA Leuk Est (test code = UA Leuk NEGATIVE Est) [facility] AND [id number] 19:07:00 Test Item Value Reference Range Interpretation Comments UA WBC (test code = UA WBC) NONE SEEN [facility] [id number] 19:07:00 Test Item Value Reference Range Interpretation Comments UA RBC (test code = UA RBC) NONE SEEN [facility] [id number] 19:07:00 Test Item Value Reference Range Interpretation Comments UA Sq Epi (test code = UA Sq Epi) NONE SEEN [facility] AND [id number] 19:07:00 Test Item Value Reference Range Interpretation Comments UA Bacteria (test code = UA Bacteria) MANY [facility] AND [id number] 19:07:00 Test Item Value Reference Range Interpretation Comments UA Hyal Cast (test code = UA Hyal NONE SEEN Cast) [facility] HospitalDesalitechRUTHERF[facility] REGIONAL HEALTH [id number] 15:46:00 Test Item Value Reference Range Interpretation Comments Albumin Lvl (test code = Albumin Lvl) 4.3 3.6-5.1 [facility] [employer] [id number] 15:46:00 Test Item Value Reference Range Interpretation Comments Calcium Lvl (test code = Calcium Lvl) 9.3 8.6-10.4 [facility] HospitalIcon[facility] [id number] 15:46:00 Test Item Value Reference Range Interpretation Comments Vitamin D, 25-OH, Total (test code = 55 30-100 Vitamin D, 25-OH, Total) [facility] [id number] 15:46:00 Test Item Value Reference Range Interpretation Comments Albumin Lvl (test code = Albumin Lvl) 4.3 3.6-5.1 [facility] [employer] [id number] 15:46:00 Test Item Value Reference Range Interpretation Comments Calcium Lvl (test code = Calcium Lvl) 9.3 8.6-10.4 [facility]Icon[facility] [id number] 15:46:00 Test Item Value Reference Range Interpretation Comments Vitamin D, 25-OH, Total (test code = 55 30-100 Vitamin D, 25-OH, Total) [facility]2019-12-23 17:11:00 Test Item Value Reference Range Interpretation Comments Glucose Lvl (test code = Glucose Lvl) 99 70-99 [facility]2019-12-23 17:11:00 Test Item Value Reference Range Interpretation Comments BUN (test code = BUN) 31 7-22 [facility]2019-12-23 17:11:00 Test Item Value Reference Range Interpretation Comments Creatinine Lvl (test code = Creatinine 0.75 0.50-1.40 Lvl) [facility]2019-12-23 17:11:00 Test Item Value Reference Range Interpretation Comments Sodium Lvl (test code = Sodium Lvl) 141 135-145 [facility]2019-12-23 17:11:00 Test Item Value Reference Range Interpretation Comments Potassium Lvl (test code = Potassium 4.3 3.5-5.1 Lvl) [facility]2019-12-23 17:11:00 Test Item Value Reference Range Interpretation Comments Chloride Lvl (test code = Chloride Lvl) 107 95-109 [facility]2019-12-23 17:11:00 Test Item Value Reference Range Interpretation Comments CO2 (test code = CO2) 27 24-32 [facility]2019-12-23 17:11:00 Test Item Value Reference Range Interpretation Comments Calcium Lvl (test code = Calcium Lvl) 8.5 8.5-10.5 [facility]2019-12-23 17:11:00 Test Item Value Reference Range Interpretation Comments eGFR (test code = eGFR) 79 [facility]2019-12-23 17:11:00 Test Item Value Reference Range Interpretation Comments AGAP (test code = AGAP) 11.3 10.0-20.0 [facility]2019-12-23 17:11:00 Test Item Value Reference Range Interpretation Comments Lactic Acid Lvl (test code = Lactic 0.7 0.5-2.2 Acid Lvl) [facility] CampusBnzidscZNYUBFGNYC1354-88-18 17:11:00 Test Item Value Reference Range Interpretation Comments WBC (test code = WBC) 9.9 3.7-10.4 [facility] CampusOnamkyuDFQQPMVSEI1858-68-72 17:11:00 Test Item Value Reference Range Interpretation Comments RBC (test code = RBC) 4.27 4.20-5.40 [facility] CampusDniezghEKBUUGMJNY2441-14-42 17:11:00 Test Item Value Reference Range Interpretation Comments Hgb (test code = Hgb) 13.2 12.0-16.0 [facility] CampusDzkollyWAWULGBWUJ4799-81-40 17:11:00 Test Item Value Reference Range Interpretation Comments Hct (test code = Hct) 38.8 36.0-48.0 [facility] CampusZfldubqCVHHHMJLNY4554-26-18 17:11:00 Test Item Value Reference Range Interpretation Comments MCV (test code = MCV) 90.9 80.0-98.0 [facility] CampusJwziejlUWFRGDULPD9804-71-43 17:11:00 Test Item Value Reference Range Interpretation Comments MCH (test code = MCH) 30.8 pg 27.0-31.0 [facility] CampusOyqkhvoQPYXOJRNKU3222-29-85 17:11:00 Test Item Value Reference Range Interpretation Comments MCHC (test code = MCHC) 33.9 32.0-36.0 [facility] CampusBwlwkeaSUPEHTMUXN8470-91-42 17:11:00 Test Item Value Reference Range Interpretation Comments RDW (test code = RDW) 14.1 11.5-14.5 [facility] CampusYnzjqnbXBBRULDUEH5898-08-42 17:11:00 Test Item Value Reference Range Interpretation Comments Platelet (test code = Platelet) 210 133-450 [facility] CampusEijcpkyICAPTBOCTS6339-41-79 17:11:00 Test Item Value Reference Range Interpretation Comments MPV (test code = MPV) 9.0 7.4-10.4 [facility] CampusRxggaywZDOTNPXQKH0312-91-76 17:11:00 Test Item Value Reference Range Interpretation Comments Segs (test code = Segs) 79.8 45.0-75.0 [facility] CampusJibximpXXZKLTVPRV3111-70-98 17:11:00 Test Item Value Reference Range Interpretation Comments Lymphocytes (test code = Lymphocytes) 13.0 20.0-40.0 [facility] CampusPqpdjtoNQQKMLNPDQ3637-84-73 17:11:00 Test Item Value Reference Range Interpretation Comments Monocytes (test code = Monocytes) 5.0 2.0-12.0 [facility] CampusYrelnqkIMOUJVKELD2286-02-34 17:11:00 Test Item Value Reference Range Interpretation Comments Eosinophils (test code = 1.3 See_Comment [A utomated message] The Eosinophils) system which ge nerated this result tra nsmitted reference range : <=4.0. The reference r kingsley was not used to int erpret this result as normal/abnormal . [facility] CampusXrylgxyCZWKBRRWIP7729-35-72 17:11:00 Test Item Value Reference Range Interpretation Comments Basophils (test code = 0.9 See_Comment [Aut omated message] The Basophils) system which ge nerated this result tra nsmitted reference range : <=1.0. The reference r kingsley was not used to int erpret this result as normal/abnormal . [facility] CampusVhiqipeIVHTTYHFVB4169-80-67 17:11:00 Test Item Value Reference Range Interpretation Comments Neutrophils # (test code = Neutrophils 7.9 1.5-8.1 #) [facility] CampusNdlkepxUXHLOYXZHK0848-59-26 17:11:00 Test Item Value Reference Range Interpretation Comments Lymphocytes # (test code = Lymphocytes 1.3 1.0-5.5 #) [facility] CampusNogufrtVGDCEASIUE8897-94-79 17:11:00 Test Item Value Reference Range Interpretation Comments Monocytes # (test code 0.5 See_Comment [Aut omated message] The = Monocytes #) system which generated this result tra nsmitted reference range : <=0.8. The reference r kingsley was not used to int erpret this result as normal/abnormal . [facility] CampusAxmhuetTBIDGLIREH8027-25-70 17:11:00 Test Item Value Reference Range Interpretation Comments Eosinophils # (test code 0.1 See_Comment [A utomated message] The = Eosinophils #) system whic h generated this result tra nsmitted reference range : <=0.5. The reference r kingsley was not used to int erpret this result as normal/abnormal . [facility] CampusNitsefuPVSAITDLUY5802-23-85 17:11:00 Test Item Value Reference Range Interpretation Comments Basophils # (test code 0.1 See_Comment [Aut omated message] The = Basophils #) system which generated this result tra nsmitted reference range : <=0.2. The reference r kingsley was not used to int erpret this result as normal/abnormal . [facility]2019-12-23 17:11:00 Test Item Value Reference Range Interpretation Comments Glucose Lvl (test code = Glucose Lvl) 99 70-99 [facility]2019-12-23 17:11:00 Test Item Value Reference Range Interpretation Comments BUN (test code = BUN) 31 7-22 [facility]2019-12-23 17:11:00 Test Item Value Reference Range Interpretation Comments Creatinine Lvl (test code = Creatinine 0.75 0.50-1.40 Lvl) [facility]2019-12-23 17:11:00 Test Item Value Reference Range Interpretation Comments Sodium Lvl (test code = Sodium Lvl) 141 135-145 [facility]2019-12-23 17:11:00 Test Item Value Reference Range Interpretation Comments Potassium Lvl (test code = Potassium 4.3 3.5-5.1 Lvl) [facility]2019-12-23 17:11:00 Test Item Value Reference Range Interpretation Comments Chloride Lvl (test code = Chloride Lvl) 107 95-109 [facility]2019-12-23 17:11:00 Test Item Value Reference Range Interpretation Comments CO2 (test code = CO2) 27 24-32 [facility]2019-12-23 17:11:00 Test Item Value Reference Range Interpretation Comments Calcium Lvl (test code = Calcium Lvl) 8.5 8.5-10.5 [facility]2019-12-23 17:11:00 Test Item Value Reference Range Interpretation Comments eGFR (test code = eGFR) 79 [facility]2019-12-23 17:11:00 Test Item Value Reference Range Interpretation Comments AGAP (test code = AGAP) 11.3 10.0-20.0 [facility]2019-12-23 17:11:00 Test Item Value Reference Range Interpretation Comments Lactic Acid Lvl (test code = Lactic 0.7 0.5-2.2 Acid Lvl) [facility] CampusBancsxvEIYSCHWSIV9778-11-60 17:11:00 Test Item Value Reference Range Interpretation Comments WBC (test code = WBC) 9.9 3.7-10.4 [facility] CampusKnduksaDHOKPBGZCK1246-90-03 17:11:00 Test Item Value Reference Range Interpretation Comments RBC (test code = RBC) 4.27 4.20-5.40 [facility] CampusWjaoxykIRVMTNACQA4619-08-40 17:11:00 Test Item Value Reference Range Interpretation Comments Hgb (test code = Hgb) 13.2 12.0-16.0 [facility] CampusSotughiGEJSCIUVKR5234-87-13 17:11:00 Test Item Value Reference Range Interpretation Comments Hct (test code = Hct) 38.8 36.0-48.0 [facility] CampusNyfxtvqITBOVUKNBD0390-46-11 17:11:00 Test Item Value Reference Range Interpretation Comments MCV (test code = MCV) 90.9 80.0-98.0 [facility] CampusTqdybcgJEDUFMWTOL6332-51-21 17:11:00 Test Item Value Reference Range Interpretation Comments MCH (test code = MCH) 30.8 pg 27.0-31.0 [facility] CampusDqyjfrwODXZBUYQYC1068-43-71 17:11:00 Test Item Value Reference Range Interpretation Comments MCHC (test code = MCHC) 33.9 32.0-36.0 [facility] CampusZsrwgpbTWIGVGJUHG9075-95-55 17:11:00 Test Item Value Reference Range Interpretation Comments RDW (test code = RDW) 14.1 11.5-14.5 [facility] CampusOlkmchhWURJQEVCLC7000-28-59 17:11:00 Test Item Value Reference Range Interpretation Comments Platelet (test code = Platelet) 210 133-450 [facility] CampusAeptuntTCZCSIROLD7063-14-65 17:11:00 Test Item Value Reference Range Interpretation Comments MPV (test code = MPV) 9.0 7.4-10.4 [facility] CampusApoxmvgPVNXQCRLUZ3623-26-03 17:11:00 Test Item Value Reference Range Interpretation Comments Segs (test code = Segs) 79.8 45.0-75.0 [facility] CampusRrqzdvrKHSXRBWHYF4530-10-64 17:11:00 Test Item Value Reference Range Interpretation Comments Lymphocytes (test code = Lymphocytes) 13.0 20.0-40.0 [facility] CampusTprxvzdVLZXMAMQWV1959-54-32 17:11:00 Test Item Value Reference Range Interpretation Comments Monocytes (test code = Monocytes) 5.0 2.0-12.0 [facility] CampusDjecqzrHFHHVADZKC3129-06-83 17:11:00 Test Item Value Reference Range Interpretation Comments Eosinophils (test code = 1.3 See_Comment [A utomated message] The Eosinophils) system which ge nerated this result tra nsmitted reference range : <=4.0. The reference r kingsley was not used to int erpret this result as normal/abnormal . [facility] CampusAhofpreTPDYCENEVK9269-21-04 17:11:00 Test Item Value Reference Range Interpretation Comments Basophils (test code = 0.9 See_Comment [Aut omated message] The Basophils) system which ge nerated this result tra nsmitted reference range : <=1.0. The reference r kingsley was not used to int erpret this result as normal/abnormal . [facility] CampusLgcanpeKFCTBYJVPW7286-69-25 17:11:00 Test Item Value Reference Range Interpretation Comments Neutrophils # (test code = Neutrophils 7.9 1.5-8.1 #) [facility] CampusHfjmxtgGIYIFQKKPB0894-21-82 17:11:00 Test Item Value Reference Range Interpretation Comments Lymphocytes # (test code = Lymphocytes 1.3 1.0-5.5 #) [facility] CampusFdhubpnODNTVEAING3379-33-19 17:11:00 Test Item Value Reference Range Interpretation Comments Monocytes # (test code 0.5 See_Comment [Aut omated message] The = Monocytes #) system which generated this result tra nsmitted reference range : <=0.8. The reference r kingsley was not used to int erpret this result as normal/abnormal . [facility] CampusEphtbtfSULBPXMEPP4658-83-14 17:11:00 Test Item Value Reference Range Interpretation Comments Eosinophils # (test code 0.1 See_Comment [A utomated message] The = Eosinophils #) system whic h generated this result tra nsmitted reference range : <=0.5. The reference r kingsley was not used to int erpret this result as normal/abnormal . [facility] CampusXpozndrDBJXMYJQNC6585-44-69 17:11:00 Test Item Value Reference Range Interpretation Comments Basophils # (test code 0.1 See_Comment [Aut omated message] The = Basophils #) system which generated this result tra nsmitted reference range : <=0.2. The reference r kingsley was not used to int erpret this result as normal/abnormal . [facility]Spoon[facility] ZVOGGYM8965-90-59 16:53:00 Test Item Value Reference Range Interpretation Comments proBNP (test code = 279 See_Comment [Automa salo message] The proBNP) system which ge nerated this result tra nsmitted reference range : <=125. The reference r kingsley was not used to int erpret this result as mehnaz l/abnormal. [facility] GILNIFB9958-38-28 16:53:00 Test Item Value Reference Range Interpretation Comments Troponin-I (test code no gt See_Comment [Auto mated message] The = Troponin-I) system which g enerated this result transmit salo reference range : <=0.40. The reference r kingsley was not used to interpr et this result as mehnaz l/abnormal. [facility]2019-01-27 16:53:00 Test Item Value Reference Range Interpretation Comments B/C Ratio (test code = B/C Ratio) 32 1 6-25 [facility]2019-01-27 16:53:00 Test Item Value Reference Range Interpretation Comments AGAP (test code = AGAP) 10.2 10.0-20.0 [facility]2019-01-27 16:53:00 Test Item Value Reference Range Interpretation Comments A/G Ratio (test code = A/G Ratio) 1.1 1 0.7-1.6 [facility]2019-01-27 16:53:00 Test Item Value Reference Range Interpretation Comments Globulin (test code = Globulin) 3.6 2.7-4.2 [facility]2019-01-27 16:53:00 Test Item Value Reference Range Interpretation Comments Sodium Lvl (test code = Sodium Lvl) 140 135-145 [facility]2019-01-27 16:53:00 Test Item Value Reference Range Interpretation Comments CO2 (test code = CO2) 30 24-32 [facility]2019-01-27 16:53:00 Test Item Value Reference Range Interpretation Comments Potassium Lvl (test code = Potassium 4.2 3.5-5.1 Lvl) [facility]2019-01-27 16:53:00 Test Item Value Reference Range Interpretation Comments Calcium Lvl (test code = Calcium Lvl) 8.2 8.5-10.5 [facility]2019-01-27 16:53:00 Test Item Value Reference Range Interpretation Comments Chloride Lvl (test code = Chloride Lvl) 104 95-109 [facility]2019-01-27 16:53:00 Test Item Value Reference Range Interpretation Comments BUN (test code = BUN) 23 7-22 [facility]2019-01-27 16:53:00 Test Item Value Reference Range Interpretation Comments Creatinine Lvl (test code = Creatinine 0.73 0.50-1.40 Lvl) [facility]2019-01-27 16:53:00 Test Item Value Reference Range Interpretation Comments Glucose Lvl (test code = Glucose Lvl) 94 70-99 [place] 064789-01-27 16:53:00 Test Item Value Reference Range Interpretation Comments Bili Total (test code = Bili Total) 0.5 0.2-1.3 [place] 064789-01-27 16:53:00 Test Item Value Reference Range Interpretation Comments Total Protein (test code = Total 7.5 6.4-8.4 Protein) [place] 064789-01-27 16:53:00 Test Item Value Reference Range Interpretation Comments Alk Phos (test code = Alk Phos) 54 39-136 [place] 064789-01-27 16:53:00 Test Item Value Reference Range Interpretation Comments AST (test code = AST) 29 See_Comment [Auto mated message] The system which ge nerated this result transmit salo reference range : <=37. The reference range was not used to interpr et this result as mehnaz l/abnormal. [place] 064789-01-27 16:53:00 Test Item Value Reference Range Interpretation Comments ALT (test code = ALT) 37 See_Comment [Auto mated message] The system which ge nerated this result transmit salo reference range : <=65. The reference range was not used to interpr et this result as mehnaz l/abnormal. [facility]2019-01-27 16:53:00 Test Item Value Reference Range Interpretation Comments Albumin Lvl (test code = Albumin Lvl) 3.9 3.5-5.0 [facility]2019-01-27 16:53:00 Test Item Value Reference Range Interpretation Comments eGFR (test code = eGFR) 82 [facility]FhfjclwIBQCAHFMOPRR2759-[facility]-21 16:53:00 Test Item Value Reference Range Interpretation Comments AGAP (test code = AGAP) 10.2 10.0-20.0 [place] 544879-01-27 16:53:00 Test Item Value Reference Range Interpretation Comments B/C Ratio (test code = B/C Ratio) 32 1 6-25 [place] 544879-01-27 16:53:00 Test Item Value Reference Range Interpretation Comments Globulin (test code = Globulin) 3.6 2.7-4.2 [facility] HospitalXqovlokYTOGKXLNYSYS1808-36-28 16:53:00 Test Item Value Reference Range Interpretation Comments A/G Ratio (test code = A/G Ratio) 1.1 1 0.7-1.6 [facility] HospitalUhimhmmYHPAYVMYWDDM9725-37-20 16:53:00 Test Item Value Reference Range Interpretation Comments Glucose Lvl (test code = Glucose Lvl) 94 70-99 [facility] HospitalPkiztsyTACSHOBYBRTR5115-71-17 16:53:00 Test Item Value Reference Range Interpretation Comments BUN (test code = BUN) 23 7-22 [facility] HospitalPqijscdBTGTULLETMFA6654-45-31 16:53:00 Test Item Value Reference Range Interpretation Comments Creatinine Lvl (test code = Creatinine 0.73 0.50-1.40 Lvl) [facility] HospitalBerasknPQHBLOQNAMBW3667-44-14 16:53:00 Test Item Value Reference Range Interpretation Comments Sodium Lvl (test code = Sodium Lvl) 140 135-145 [facility] HospitalLkrpgqyDZYTKXWMPODQ6237-04-92 16:53:00 Test Item Value Reference Range Interpretation Comments Potassium Lvl (test code = Potassium 4.2 3.5-5.1 Lvl) [facility] HospitalGshswedTRHLZLBDLYDR9311-90-02 16:53:00 Test Item Value Reference Range Interpretation Comments Chloride Lvl (test code = Chloride Lvl) 104 95-109 [facility] HospitalEetqkqwYCEMARNJDAJD1710-72-26 16:53:00 Test Item Value Reference Range Interpretation Comments CO2 (test code = CO2) 30 24-32 [facility] HospitalQoywbjhSQRDJWSYVJYG7119-47-97 16:53:00 Test Item Value Reference Range Interpretation Comments Calcium Lvl (test code = Calcium Lvl) 8.2 8.5-10.5 [facility] HospitalJilqodgREMHMULOTWZF5654-61-55 16:53:00 Test Item Value Reference Range Interpretation Comments Total Protein (test code = Total 7.5 6.4-8.4 Protein) [facility] HospitalHdefankRWVLVCRBHSLB0789-86-48 16:53:00 Test Item Value Reference Range Interpretation Comments Albumin Lvl (test code = Albumin Lvl) 3.9 3.5-5.0 [facility] HospitalGaumytiAUKOCTHFNJKH2399-05-75 16:53:00 Test Item Value Reference Range Interpretation Comments ALT (test code = ALT) 37 See_Comment [Auto mated message] The system which ge nerated this result transmit salo reference range : <=65. The reference range was not used to interpr et this result as mehnaz l/abnormal. [facility] HospitalTxpolgyBRHHDYQUKLCM2682-79-09 16:53:00 Test Item Value Reference Range Interpretation Comments AST (test code = AST) 29 See_Comment [Auto mated message] The system which ge nerated this result transmit salo reference range : <=37. The reference range was not used to interpr et this result as mehnaz l/abnormal. [facility] HospitalGouuijrRTIMVDTQRAFK7999-99-00 16:53:00 Test Item Value Reference Range Interpretation Comments Alk Phos (test code = Alk Phos) 54 39-136 [facility] HospitalTfvctzmZWTQJYGNYEYK8616-94-68 16:53:00 Test Item Value Reference Range Interpretation Comments Bili Total (test code = Bili Total) 0.5 0.2-1.3 [facility] HospitalBdapnhlKNXXTHKBHDOZ3216-70-68 16:53:00 Test Item Value Reference Range Interpretation Comments eGFR (test code = eGFR) 82 [facility] CampusNeoexduIZYEBYUMCA7458-29-59 16:53:00 Test Item Value Reference Range Interpretation Comments Hct (test code = Hct) 39.6 36.0-48.0 [facility] CampusHrsonxxXFHKXVPFCV8496-53-72 16:53:00 Test Item Value Reference Range Interpretation Comments Hgb (test code = Hgb) 13.7 12.0-16.0 [facility] CampusRlczybrWLRDKSRCAF5624-04-78 16:53:00 Test Item Value Reference Range Interpretation Comments RBC (test code = RBC) 4.14 4.20-5.40 [facility] CampusFphiogaGIMISAGYFJ7632-68-10 16:53:00 Test Item Value Reference Range Interpretation Comments WBC (test code = WBC) 5.2 3.7-10.4 [facility] CampusFsvmggqKHXGSCOTIN8976-70-47 16:53:00 Test Item Value Reference Range Interpretation Comments RDW (test code = RDW) 14.6 11.5-14.5 [facility] CampusKtpfrcxIMMVPHWWLF4508-99-65 16:53:00 Test Item Value Reference Range Interpretation Comments MCHC (test code = MCHC) 34.6 32.0-36.0 [facility] CampusFfnwbiyATOTNPFANI7292-19-67 16:53:00 Test Item Value Reference Range Interpretation Comments MCH (test code = MCH) 33.1 pg 27.0-31.0 [facility] CampusHuvkxblWYLGUKUTPE6156-51-28 16:53:00 Test Item Value Reference Range Interpretation Comments MCV (test code = MCV) 95.6 80.0-98.0 [facility] CampusGdnrzxlCLBLNUUEYY4859-96-22 16:53:00 Test Item Value Reference Range Interpretation Comments MPV (test code = MPV) 8.9 7.4-10.4 [facility] CampusIfntajvRIWASTGJBD0425-45-22 16:53:00 Test Item Value Reference Range Interpretation Comments Platelet (test code = Platelet) 120 133-450 [facility] CampusFpriufkXIVCPJXNFS3846-72-93 16:53:00 Test Item Value Reference Range Interpretation Comments Neutrophils # (test code = Neutrophils 3.6 1.5-8.1 #) [facility] CampusMntqzedMGINXOIAMR3433-57-04 16:53:00 Test Item Value Reference Range Interpretation Comments Basophils (test code = 1.4 See_Comment [Aut omated message] The Basophils) system which ge nerated this result tra nsmitted reference range : <=1.0. The reference r kingsley was not used to int erpret this result as normal/abnormal . [facility] CampusUkicospGUZTLZRLOI3932-03-89 16:53:00 Test Item Value Reference Range Interpretation Comments Eosinophils (test code = 3.0 See_Comment [A utomated message] The Eosinophils) system which ge nerated this result tra nsmitted reference range : <=4.0. The reference r kingsley was not used to int erpret this result as normal/abnormal . [facility] CampusCpkyrdhCQIBILTKPC4097-10-26 16:53:00 Test Item Value Reference Range Interpretation Comments Eosinophils # (test code 0.2 See_Comment [A utomated message] The = Eosinophils #) system whic h generated this result tra nsmitted reference range : <=0.5. The reference r kingsley was not used to int erpret this result as normal/abnormal . [facility] CampusEaomguhIDNTIWLBIF8062-73-04 16:53:00 Test Item Value Reference Range Interpretation Comments Basophils # (test code 0.1 See_Comment [Aut omated message] The = Basophils #) system which generated this result tra nsmitted reference range : <=0.2. The reference r kingsley was not used to int erpret this result as normal/abnormal . [facility] SystemTmhscfvQRUJGRVUWJ6591-84-86 16:53:00 Test Item Value Reference Range Interpretation Comments Monocytes # (test code 0.5 See_Comment [Aut omated message] The = Monocytes #) system which generated this result tra nsmitted reference range : <=0.8. The reference r kingsley was not used to int erpret this result as normal/abnormal . [facility] SystemTgqrkifSLXQGSDTIR1465-46-38 16:53:00 Test Item Value Reference Range Interpretation Comments Lymphocytes # (test code = Lymphocytes 0.8 1.0-5.5 #) [facility]WccllvaTIIQPOSUVY4938-40-06 16:53:00 Test Item Value Reference Range Interpretation Comments Monocytes (test code = Monocytes) 9.6 2.0-12.0 [facility] HospitalYeiuqgvBSQTAREHPH6166-99-49 16:53:00 Test Item Value Reference Range Interpretation Comments Lymphocytes (test code = Lymphocytes) 15.6 20.0-40.0 [facility] SystemZjgmjdiISHFPTOXJV9890-85-99 16:53:00 Test Item Value Reference Range Interpretation Comments Segs (test code = Segs) 70.4 45.0-75.0 [facility]Cons[facility] 16:53:00 Test Item Value Reference Range Interpretation Comments proBNP (test code = 279 See_Comment [Automa salo message] The proBNP) system which ge nerated this result tra nsmitted reference range : <=125. The reference r kingsley was not used to int erpret this result as mehnaz l/abnormal. [facility] HospitalPharmAthene OCQPFXT1593-12-83 16:53:00 Test Item Value Reference Range Interpretation Comments Troponin-I (test code no gt See_Comment [Auto mated message] The = Troponin-I) system which g enerated this result transmit salo reference range : <=0.40. The reference r kingsley was not used to interpr et this result as mehnaz l/abnormal. [facility] [id number] 16:53:00 Test Item Value Reference Range Interpretation Comments B/C Ratio (test code = B/C Ratio) 32 1 6-25 [facility] [id number] 16:53:00 Test Item Value Reference Range Interpretation Comments AGAP (test code = AGAP) 10.2 10.0-20.0 [facility]2019-01-27 16:53:00 Test Item Value Reference Range Interpretation Comments A/G Ratio (test code = A/G Ratio) 1.1 1 0.7-1.6 [facility]2019-01-27 16:53:00 Test Item Value Reference Range Interpretation Comments Globulin (test code = Globulin) 3.6 2.7-4.2 [facility]2019-01-27 16:53:00 Test Item Value Reference Range Interpretation Comments Sodium Lvl (test code = Sodium Lvl) 140 135-145 [facility]2019-01-27 16:53:00 Test Item Value Reference Range Interpretation Comments CO2 (test code = CO2) 30 24-32 [facility]2019-01-27 16:53:00 Test Item Value Reference Range Interpretation Comments Potassium Lvl (test code = Potassium 4.2 3.5-5.1 Lvl) [facility]2019-01-27 16:53:00 Test Item Value Reference Range Interpretation Comments Calcium Lvl (test code = Calcium Lvl) 8.2 8.5-10.5 [facility]2019-01-27 16:53:00 Test Item Value Reference Range Interpretation Comments Chloride Lvl (test code = Chloride Lvl) 104 95-109 [facility]2019-01-27 16:53:00 Test Item Value Reference Range Interpretation Comments BUN (test code = BUN) 23 7-22 [facility]2019-01-27 16:53:00 Test Item Value Reference Range Interpretation Comments Creatinine Lvl (test code = Creatinine 0.73 0.50-1.40 Lvl) [facility]2019-01-27 16:53:00 Test Item Value Reference Range Interpretation Comments Glucose Lvl (test code = Glucose Lvl) 94 70-99 [facility]2019-01-27 16:53:00 Test Item Value Reference Range Interpretation Comments Bili Total (test code = Bili Total) 0.5 0.2-1.3 [facility]2019-01-27 16:53:00 Test Item Value Reference Range Interpretation Comments Total Protein (test code = Total 7.5 6.4-8.4 Protein) [facility]2019-01-27 16:53:00 Test Item Value Reference Range Interpretation Comments Alk Phos (test code = Alk Phos) 54 39-136 [facility]2019-01-27 16:53:00 Test Item Value Reference Range Interpretation Comments AST (test code = AST) 29 See_Comment [Auto mated message] The system which ge nerated this result transmit salo reference range : <=37. The reference range was not used to interpr et this result as mehnaz l/abnormal. [facility]2019-01-27 16:53:00 Test Item Value Reference Range Interpretation Comments ALT (test code = ALT) 37 See_Comment [Auto mated message] The system which ge nerated this result transmit salo reference range : <=65. The reference range was not used to interpr et this result as mehnaz l/abnormal. [facility]2019-01-27 16:53:00 Test Item Value Reference Range Interpretation Comments Albumin Lvl (test code = Albumin Lvl) 3.9 3.5-5.0 [facility]2019-01-27 16:53:00 Test Item Value Reference Range Interpretation Comments eGFR (test code = eGFR) 82 [facility]MlysmqyYPVRUDXERSQI4904-40-14 16:53:00 Test Item Value Reference Range Interpretation Comments AGAP (test code = AGAP) 10.2 10.0-20.0 [facility] HospitalMughzonLRESALKDUCDZ9730-49-13 16:53:00 Test Item Value Reference Range Interpretation Comments B/C Ratio (test code = B/C Ratio) 32 1 6-25 [facility] HospitalLepfbzkLYGHPEXVRERC5364-71-62 16:53:00 Test Item Value Reference Range Interpretation Comments Globulin (test code = Globulin) 3.6 2.7-4.2 [facility] HospitalIouxpptOGEMCEPQYSOQ2589-45-25 16:53:00 Test Item Value Reference Range Interpretation Comments A/G Ratio (test code = A/G Ratio) 1.1 1 0.7-1.6 [facility] HospitalPscwwzxVEZCIVWCAULS8542-87-58 16:53:00 Test Item Value Reference Range Interpretation Comments Glucose Lvl (test code = Glucose Lvl) 94 70-99 [facility] HospitalMhppkkiDMOTDUVUYMIQ8492-57-41 16:53:00 Test Item Value Reference Range Interpretation Comments BUN (test code = BUN) 23 7-22 [facility] HospitalLgiicjjRHXBMGSBWINI2189-86-78 16:53:00 Test Item Value Reference Range Interpretation Comments Creatinine Lvl (test code = Creatinine 0.73 0.50-1.40 Lvl) [facility] HospitalTcgyspiPOXEDPXNLGGO8032-89-42 16:53:00 Test Item Value Reference Range Interpretation Comments Sodium Lvl (test code = Sodium Lvl) 140 135-145 [facility] HospitalHgayhopRTQJFRMVKMLX9636-54-63 16:53:00 Test Item Value Reference Range Interpretation Comments Potassium Lvl (test code = Potassium 4.2 3.5-5.1 Lvl) [facility] HospitalYlenmwwJFLCEOECOGWQ2826-89-05 16:53:00 Test Item Value Reference Range Interpretation Comments Chloride Lvl (test code = Chloride Lvl) 104 95-109 [facility] HospitalYdlxortMARPNLXMDGTE5818-32-17 16:53:00 Test Item Value Reference Range Interpretation Comments CO2 (test code = CO2) 30 24-32 [facility] HospitalBswfqinITUYNHSHJSAA8185-12-34 16:53:00 Test Item Value Reference Range Interpretation Comments Calcium Lvl (test code = Calcium Lvl) 8.2 8.5-10.5 [facility] HospitalQnkdnkuVLGGQRTNKDYC5074-66-18 16:53:00 Test Item Value Reference Range Interpretation Comments Total Protein (test code = Total 7.5 6.4-8.4 Protein) [facility] HospitalLgtzoiiUWXIVGKEIFMZ8256-07-85 16:53:00 Test Item Value Reference Range Interpretation Comments Albumin Lvl (test code = Albumin Lvl) 3.9 3.5-5.0 [facility] HospitalHeunosmZQDDXQDLSTND5743-40-03 16:53:00 Test Item Value Reference Range Interpretation Comments ALT (test code = ALT) 37 See_Comment [Auto mated message] The system which ge nerated this result transmit salo reference range : <=65. The reference range was not used to interpr et this result as mehnaz l/abnormal. [facility] HospitalZhciehpLQVAVLHXLJSP2755-27-63 16:53:00 Test Item Value Reference Range Interpretation Comments AST (test code = AST) 29 See_Comment [Auto mated message] The system which ge nerated this result transmit salo reference range : <=37. The reference range was not used to interpr et this result as mehnaz l/abnormal. [facility] HospitalUzhwgwtNDBXQFGIBUSK6127-11-80 16:53:00 Test Item Value Reference Range Interpretation Comments Alk Phos (test code = Alk Phos) 54 39-136 [facility] HospitalAmwqewqXQODDTPXAMMH6394-51-18 16:53:00 Test Item Value Reference Range Interpretation Comments Bili Total (test code = Bili Total) 0.5 0.2-1.3 [facility] HospitalWvktelvVHSWDOZZBIQB0094-88-24 16:53:00 Test Item Value Reference Range Interpretation Comments eGFR (test code = eGFR) 82 [facility] CampusGukdrqdMAMWRFSEVZ7870-53-01 16:53:00 Test Item Value Reference Range Interpretation Comments Hct (test code = Hct) 39.6 36.0-48.0 [facility] CampusJqzzasqYRSONFVTGV7158-85-92 16:53:00 Test Item Value Reference Range Interpretation Comments Hgb (test code = Hgb) 13.7 12.0-16.0 [facility] CampusWltgobgUSJNVKGQNM1668-47-23 16:53:00 Test Item Value Reference Range Interpretation Comments RBC (test code = RBC) 4.14 4.20-5.40 [facility] CampusXnllsjsGNSAJOYCLI9936-57-11 16:53:00 Test Item Value Reference Range Interpretation Comments WBC (test code = WBC) 5.2 3.7-10.4 [facility] CampusSjrlgjePQLZMEKYNZ7317-36-09 16:53:00 Test Item Value Reference Range Interpretation Comments RDW (test code = RDW) 14.6 11.5-14.5 [facility] CampusUrsckbsQAZUUVQWGD8369-09-35 16:53:00 Test Item Value Reference Range Interpretation Comments MCHC (test code = MCHC) 34.6 32.0-36.0 [facility] CampusDsqbsopKACOYHZARP2051-50-69 16:53:00 Test Item Value Reference Range Interpretation Comments MCH (test code = MCH) 33.1 pg 27.0-31.0 [facility] CampusIqozpotOMVZZHPADM8236-55-46 16:53:00 Test Item Value Reference Range Interpretation Comments MCV (test code = MCV) 95.6 80.0-98.0 [place] [id number] 16:53:00 Test Item Value Reference Range Interpretation Comments MPV (test code = MPV) 8.9 7.4-10.4 [facility] CampusMglwcokPCXRZQRUNB5684-46-92 16:53:00 Test Item Value Reference Range Interpretation Comments Platelet (test code = Platelet) 120 133-450 [facility] CampusTdxumhkMEOKKYWXJS9228-85-81 16:53:00 Test Item Value Reference Range Interpretation Comments Neutrophils # (test code = Neutrophils 3.6 1.5-8.1 #) [facility] CampusGvasvniXUGAROMELB0066-19-20 16:53:00 Test Item Value Reference Range Interpretation Comments Basophils (test code = 1.4 See_Comment [Aut omated message] The Basophils) system which ge nerated this result tra nsmitted reference range : <=1.0. The reference r kingsley was not used to int erpret this result as normal/abnormal . [facility] CampusPlletzvGDCFAGAASB9160-93-44 16:53:00 Test Item Value Reference Range Interpretation Comments Eosinophils (test code = 3.0 See_Comment [A utomated message] The Eosinophils) system which ge nerated this result tra nsmitted reference range : <=4.0. The reference r kingsley was not used to int erpret this result as normal/abnormal . [facility] CampusPsaaxhwQHGKESUFYY6370-80-19 16:53:00 Test Item Value Reference Range Interpretation Comments Eosinophils # (test code 0.2 See_Comment [A utomated message] The = Eosinophils #) system whic h generated this result tra nsmitted reference range : <=0.5. The reference r kingsley was not used to int erpret this result as normal/abnormal . [facility] CampusHltfitoCLUILGOBIU0638-50-61 16:53:00 Test Item Value Reference Range Interpretation Comments Basophils # (test code 0.1 See_Comment [Aut omated message] The = Basophils #) system which generated this result tra nsmitted reference range : <=0.2. The reference r kingsley was not used to int erpret this result as normal/abnormal . [facility] CampusDduywwbFOBFCJRLVX6631-69-85 16:53:00 Test Item Value Reference Range Interpretation Comments Monocytes # (test code 0.5 See_Comment [Aut omated message] The = Monocytes #) system which generated this result tra nsmitted reference range : <=0.8. The reference r kingsley was not used to int erpret this result as normal/abnormal . [facility] CampusHzdqyyiCWSQDBXMED3203-40-14 16:53:00 Test Item Value Reference Range Interpretation Comments Lymphocytes # (test code = Lymphocytes 0.8 1.0-5.5 #) [facility] HospitalYqiziblJMUOGQFMJN2528-45-85 16:53:00 Test Item Value Reference Range Interpretation Comments Monocytes (test code = Monocytes) 9.6 2.0-12.0 [facility]JqgygtrFZIOYKMNDA8452-62-21 16:53:00 Test Item Value Reference Range Interpretation Comments Lymphocytes (test code = Lymphocytes) 15.6 20.0-40.0 [facility] SystemBpuvgceLVLLZHBROO2123-25-28 16:53:00 Test Item Value Reference Range Interpretation Comments Segs (test code = Segs) 70.4 45.0-75.0 [facility] HospitalConservus International2017-12-22 21:11:00 Test Item Value Reference Range Interpretation Comments Troponin-I (test code no gt See_Comment [Auto mated message] The = Troponin-I) system which g enerated this result transmit salo reference range : <=0.40. The reference r kingsley was not used to interpr et this result as mehnaz l/abnormal. [facility] [employer]2017-12-22 21:11:00 Test Item Value Reference Range Interpretation Comments Magnesium Lvl (test code = Magnesium 5.0 1.8-2.4 Lvl) [facility] [employer]2017-12-22 21:11:00 Test Item Value Reference Range Interpretation Comments Troponin-I (test code no gt See_Comment [Auto mated message] The = Troponin-I) system which g enerated this result transmit salo reference range : <=0.40. The reference r kingsley was not used to interpr et this result as mehnaz l/abnormal. [facility] [employer]2017-12-22 21:11:00 Test Item Value Reference Range Interpretation Comments Magnesium Lvl (test code = Magnesium 5.0 1.8-2.4 Lvl) [facility] [employer]2017-12-22 16:54:00 Test Item Value Reference Range Interpretation Comments CK-MB INDEX (test 2.2 See_Comment [Automate d message] The code = CK-MB INDEX) system w [facility] generated this result transmit salo reference range : <=2.5. The reference range was not used to interpr et this result as mehnaz l/abnormal. [facility] [employer]2017-12-22 16:54:00 Test Item Value Reference Range Interpretation Comments Troponin-I (test code no gt See_Comment [Auto mated message] The = Troponin-I) system which g enerated this result transmit salo reference range : <=0.40. The reference r kingsley was not used to interpr et this result as mehnaz l/abnormal. [facility] HospitalUSMDAC PCGQUXT8613-68-04 16:54:00 Test Item Value Reference Range Interpretation Comments CK MB (test code = CK MB) 1.6 0.5-3.6 [facility] HospitalUSMD UEVKOZF8965-63-83 16:54:00 Test Item Value Reference Range Interpretation Comments Total CK (test code = Total CK) 72 12-191 [facility] [employer] HXMCF7415-23-12 16:54:00 Test Item Value Reference Range Interpretation Comments Alk Phos (test code = Alk Phos) 55 39-136 [facility] [employer] [id number] 16:54:00 Test Item Value Reference Range Interpretation Comments eGFR (test code = eGFR) 63 [facility] [id number] 16:54:00 Test Item Value Reference Range Interpretation Comments B/C Ratio (test code = B/C Ratio) 32 6-25 [facility] [id number] 16:54:00 Test Item Value Reference Range Interpretation Comments Globulin (test code = Globulin) 3.7 2.7-4.2 [facility] [id number] 16:54:00 Test Item Value Reference Range Interpretation Comments AGAP (test code = AGAP) 7.6 10.0-20.0 [facility] [employer] [id number] 16:54:00 Test Item Value Reference Range Interpretation Comments A/G Ratio (test code = A/G Ratio) 1.2 0.7-1.6 [facility] [id number] 16:54:00 Test Item Value Reference Range Interpretation Comments Glucose Lvl (test code = Glucose Lvl) 99 70-99 [facility] GYRIQ2789-34-01 16:54:00 Test Item Value Reference Range Interpretation Comments ASPARTATE TRANSAMINASE 22 See_Comment [Aut omated message] (test code = ASPARTATE The s ystem which TRANSAMINASE) generated this result transmitted ref erence range: <=37. Th e reference range was not used to interpr et this result as normal/abnormal . [facility]2017-12-22 16:54:00 Test Item Value Reference Range Interpretation Comments Bili Total (test code = Bili Total) 0.4 0.2-1.3 [facility]2017-12-22 16:54:00 Test Item Value Reference Range Interpretation Comments ALANINE AMINOTRANSFERASE 34 See_Comment [A utomated message] (test code = ALANINE The sys tem which AMINOTRANSFERASE) generated this result transmitted ref erence range: <=65. Th e reference range was not used to int erpret this result as normal/abnormal . [facility]2017-12-22 16:54:00 Test Item Value Reference Range Interpretation Comments Sodium Lvl (test code = Sodium Lvl) 139 135-145 [facility]2017-12-22 16:54:00 Test Item Value Reference Range Interpretation Comments Chloride Lvl (test code = Chloride Lvl) 102 95-109 [facility]2017-12-22 16:54:00 Test Item Value Reference Range Interpretation Comments Potassium Lvl (test code = Potassium 3.6 3.5-5.1 Lvl) [facility]2017-12-22 16:54:00 Test Item Value Reference Range Interpretation Comments Creatinine Lvl (test code = Creatinine 0.92 0.50-1.40 Lvl) [facility]2017-12-22 16:54:00 Test Item Value Reference Range Interpretation Comments BUN (test code = BUN) 29 7-22 [facility]2017-12-22 16:54:00 Test Item Value Reference Range Interpretation Comments Total Protein (test code = Total 8.0 6.4-8.4 Protein) [facility]2017-12-22 16:54:00 Test Item Value Reference Range Interpretation Comments Albumin Lvl (test code = Albumin Lvl) 4.3 3.5-5.0 [facility]2017-12-22 16:54:00 Test Item Value Reference Range Interpretation Comments CO2 (test code = CO2) 33 24-32 [facility]2017-12-22 16:54:00 Test Item Value Reference Range Interpretation Comments Calcium Lvl (test code = Calcium Lvl) 9.1 8.5-10.5 [facility]iawnnqJTMVMDRPYD6132-08-99 16:54:00 Test Item Value Reference Range Interpretation Comments Basophils # (test code 0.2 See_Comment [Aut omated message] The = Basophils #) system which generated this result tra nsmitted reference range : <=0.2. The reference r kingsley was not used to int erpret this result as normal/abnormal . [facility] CampusCjbntcqWWTMLTLYBV7628-22-10 16:54:00 Test Item Value Reference Range Interpretation Comments Eosinophils # (test code 0.1 See_Comment [A utomated message] The = Eosinophils #) system whic h generated this result tra nsmitted reference range : <=0.5. The reference r kingsley was not used to int erpret this result as normal/abnormal . [facility] CampusBvwobuyRSZTXMNACV7938-65-37 16:54:00 Test Item Value Reference Range Interpretation Comments Segs-Bands # (test code = Segs-Bands #) 4.7 1.5-8.1 [facility] CampusChxhsdhLWZHHDBZCA8096-04-47 16:54:00 Test Item Value Reference Range Interpretation Comments Lymphocytes # (test code = Lymphocytes 1.2 1.0-5.5 #) [facility] CampusNbfvbvlWDWSXYVRJX8468-52-75 16:54:00 Test Item Value Reference Range Interpretation Comments Monocytes # (test code 0.5 See_Comment [Aut omated message] The = Monocytes #) system which generated this result tra nsmitted reference range : <=0.8. The reference r kingsley was not used to int erpret this result as normal/abnormal . [facility] CampusIbyahwySSYXOFWHWE9849-39-73 16:54:00 Test Item Value Reference Range Interpretation Comments Eosinophils (test code = 1.6 See_Comment [A utomated message] The Eosinophils) system which ge nerated this result tra nsmitted reference range : <=4.0. The reference r kingsley was not used to int erpret this result as normal/abnormal . [facility] CampusTjnodsfSMPDODKXHX4542-79-09 16:54:00 Test Item Value Reference Range Interpretation Comments Basophils (test code = 2.7 See_Comment [Aut omated message] The Basophils) system which ge nerated this result tra nsmitted reference range : <=1.0. The reference r kingsley was not used to int erpret this result as normal/abnormal . [place] [address]-12-22 16:54:00 Test Item Value Reference Range Interpretation Comments Monocytes (test code = Monocytes) 6.8 2.0-12.0 [facility] CampusRmzseiqUALBYOUMRR3038-40-73 16:54:00 Test Item Value Reference Range Interpretation Comments Lymphocytes (test code = Lymphocytes) 18.4 20.0-40.0 [facility] CampusIjlvyetLEHQSDCBZB3369-18-39 16:54:00 Test Item Value Reference Range Interpretation Comments Segs (test code = Segs) 70.5 45.0-75.0 [facility] CampusZiluloyHCJGBHYHSI5583-81-92 16:54:00 Test Item Value Reference Range Interpretation Comments MPV (test code = MPV) 9.6 7.4-10.4 [facility] CampusLiaggoeJUOGIWMTAH7762-19-66 16:54:00 Test Item Value Reference Range Interpretation Comments Platelet (test code = Platelet) 192 133-450 [facility] CampusKakandmHYFNXTUGWZ1849-28-72 16:54:00 Test Item Value Reference Range Interpretation Comments MCHC (test code = MCHC) 33.4 32.0-36.0 [facility] CampusWdvtvpvEHJGWTICQY2606-45-63 16:54:00 Test Item Value Reference Range Interpretation Comments MCV (test code = MCV) 96.0 80.0-98.0 [facility] CampusSyvwdhjFQXSCKZADW2647-28-41 16:54:00 Test Item Value Reference Range Interpretation Comments MCH (test code = MCH) 32.1 pg 27.0-31.0 [facility] CampusHbdcfahRVXDWLGISM9560-62-35 16:54:00 Test Item Value Reference Range Interpretation Comments RDW (test code = RDW) 14.9 11.5-14.5 [facility] CampusZxkuvxfVHKOIZRCNE5210-97-07 16:54:00 Test Item Value Reference Range Interpretation Comments RBC X 10x6 (test code = RBC X 10x6) 4.31 4.20-5.40 [facility] CampusTqxnmojNGHVGFSBPH7732-46-66 16:54:00 Test Item Value Reference Range Interpretation Comments Hgb (test code = Hgb) 13.8 12.0-16.0 [facility] CampusAfqkabpHJGTWKULTB5956-36-31 16:54:00 Test Item Value Reference Range Interpretation Comments Hct (test code = Hct) 41.4 36.0-48.0 [facility] CampusYyrjwkwXGFYPFVTHD6057-27-18 16:54:00 Test Item Value Reference Range Interpretation Comments WBC X 10x3 (test code = WBC X 10x3) 6.6 3.7-10.4 [employer] WVCTJCC6380-11-26 16:54:00 Test Item Value Reference Range Interpretation Comments CK-MB INDEX (test 2.2 See_Comment [Automate d message] The code = CK-MB INDEX) system w [facility] generated this result transmit salo reference range : <=2.5. The reference range was not used to interpr et this result as mehnaz l/abnormal. [employer]2017-12-22 16:54:00 Test Item Value Reference Range Interpretation Comments Troponin-I (test code no gt See_Comment [Auto mated message] The = Troponin-I) system which g enerated this result transmit salo reference range : <=0.40. The reference r kingsley was not used to interpr et this result as mehnaz l/abnormal. [employer]2017-12-22 16:54:00 Test Item Value Reference Range Interpretation Comments CK MB (test code = CK MB) 1.6 0.5-3.6 [facility] [employer]2017-12-22 16:54:00 Test Item Value Reference Range Interpretation Comments Total CK (test code = Total CK) 72 12-191 [facility]2017-12-22 16:54:00 Test Item Value Reference Range Interpretation Comments Alk Phos (test code = Alk Phos) 55 39-136 [facility]2017-12-22 16:54:00 Test Item Value Reference Range Interpretation Comments eGFR (test code = eGFR) 63 [facility] [employer]2017-12-22 16:54:00 Test Item Value Reference Range Interpretation Comments B/C Ratio (test code = B/C Ratio) 32 6-25 [facility]2017-12-22 16:54:00 Test Item Value Reference Range Interpretation Comments Globulin (test code = Globulin) 3.7 2.7-4.2 [facility] [employer]2017-12-22 16:54:00 Test Item Value Reference Range Interpretation Comments AGAP (test code = AGAP) 7.6 10.0-20.0 [facility]2017-12-22 16:54:00 Test Item Value Reference Range Interpretation Comments A/G Ratio (test code = A/G Ratio) 1.2 0.7-1.6 [facility]2017-12-22 16:54:00 Test Item Value Reference Range Interpretation Comments Glucose Lvl (test code = Glucose Lvl) 99 70-99 [facility]2017-12-22 16:54:00 Test Item Value Reference Range Interpretation Comments ASPARTATE TRANSAMINASE 22 See_Comment [Aut omated message] (test code = ASPARTATE The s ystem which TRANSAMINASE) generated this result transmitted ref erence range: <=37. Th e reference range was not used to interpr et this result as normal/abnormal . [facility]2017-12-22 16:54:00 Test Item Value Reference Range Interpretation Comments Bili Total (test code = Bili Total) 0.4 0.2-1.3 [facility]2017-12-22 16:54:00 Test Item Value Reference Range Interpretation Comments ALANINE AMINOTRANSFERASE 34 See_Comment [A utomated message] (test code = ALANINE The sys tem which AMINOTRANSFERASE) generated this result transmitted ref erence range: <=65. Th e reference range was not used to int erpret this result as normal/abnormal . [facility]2017-12-22 16:54:00 Test Item Value Reference Range Interpretation Comments Sodium Lvl (test code = Sodium Lvl) 139 135-145 [facility]2017-12-22 16:54:00 Test Item Value Reference Range Interpretation Comments Chloride Lvl (test code = Chloride Lvl) 102 95-109 [facility]2017-12-22 16:54:00 Test Item Value Reference Range Interpretation Comments Potassium Lvl (test code = Potassium 3.6 3.5-5.1 Lvl) [facility]2017-12-22 16:54:00 Test Item Value Reference Range Interpretation Comments Creatinine Lvl (test code = Creatinine 0.92 0.50-1.40 Lvl) [facility]2017-12-22 16:54:00 Test Item Value Reference Range Interpretation Comments BUN (test code = BUN) 29 7-22 [facility]2017-12-22 16:54:00 Test Item Value Reference Range Interpretation Comments Total Protein (test code = Total 8.0 6.4-8.4 Protein) [facility]2017-12-22 16:54:00 Test Item Value Reference Range Interpretation Comments Albumin Lvl (test code = Albumin Lvl) 4.3 3.5-5.0 [facility]2017-12-22 16:54:00 Test Item Value Reference Range Interpretation Comments CO2 (test code = CO2) 33 24-32 [facility]2017-12-22 16:54:00 Test Item Value Reference Range Interpretation Comments Calcium Lvl (test code = Calcium Lvl) 9.1 8.5-10.5 [facility] [id number] 16:54:00 Test Item Value Reference Range Interpretation Comments Basophils # (test code 0.2 See_Comment [Aut omated message] The = Basophils #) system which generated this result tra nsmitted reference range : <=0.2. The reference r kingsley was not used to int erpret this result as normal/abnormal . [facility] [id number] 16:54:00 Test Item Value Reference Range Interpretation Comments Eosinophils # (test code 0.1 See_Comment [A utomated message] The = Eosinophils #) system whic h generated this result tra nsmitted reference range : <=0.5. The reference r kingsley was not used to int erpret this result as normal/abnormal . [facility] [id number] 16:54:00 Test Item Value Reference Range Interpretation Comments Segs-Bands # (test code = Segs-Bands #) 4.7 1.5-8.1 [facility] CampusMalxktdUEBWJVXYTF0490-33-96 16:54:00 Test Item Value Reference Range Interpretation Comments Lymphocytes # (test code = Lymphocytes 1.2 1.0-5.5 #) [facility] CampusHxnlqbtNADPIHIYWP1276-33-24 16:54:00 Test Item Value Reference Range Interpretation Comments Monocytes # (test code 0.5 See_Comment [Aut omated message] The = Monocytes #) system which generated this result tra nsmitted reference range : <=0.8. The reference r kingsley was not used to int erpret this result as normal/abnormal . [facility] [id number] 16:54:00 Test Item Value Reference Range Interpretation Comments Eosinophils (test code = 1.6 See_Comment [A utomated message] The Eosinophils) system which ge nerated this result tra nsmitted reference range : <=4.0. The reference r kingsley was not used to int erpret this result as normal/abnormal . [facility] [id number] 16:54:00 Test Item Value Reference Range Interpretation Comments Basophils (test code = 2.7 See_Comment [Aut omated message] The Basophils) system which ge nerated this result tra nsmitted reference range : <=1.0. The reference r kingsley was not used to int erpret this result as normal/abnormal . [facility] [id number] 16:54:00 Test Item Value Reference Range Interpretation Comments Monocytes (test code = Monocytes) 6.8 2.0-12.0 [facility] CampusVeezbdgKMEIARCOJG7772-73-34 16:54:00 Test Item Value Reference Range Interpretation Comments Lymphocytes (test code = Lymphocytes) 18.4 20.0-40.0 [facility] CampusStrwjmzKKBEDSZAQR0364-40-30 16:54:00 Test Item Value Reference Range Interpretation Comments Segs (test code = Segs) 70.5 45.0-75.0 [facility] CampusNsguebaSEKQEICOUB2953-99-26 16:54:00 Test Item Value Reference Range Interpretation Comments MPV (test code = MPV) 9.6 7.4-10.4 [facility] CampusWhdrjrdQGIUPOCFCX0605-13-50 16:54:00 Test Item Value Reference Range Interpretation Comments Platelet (test code = Platelet) 192 133-450 [facility] [id number] 16:54:00 Test Item Value Reference Range Interpretation Comments MCHC (test code = MCHC) 33.4 32.0-36.0 [facility] CampusBhaaknhCXOZIDKNGK8760-20-90 16:54:00 Test Item Value Reference Range Interpretation Comments MCV (test code = MCV) 96.0 80.0-98.0 [facility] CampusWeyhxreMQXIYYZMIZ8319-69-14 16:54:00 Test Item Value Reference Range Interpretation Comments MCH (test code = MCH) 32.1 pg 27.0-31.0 [facility] [id number] 16:54:00 Test Item Value Reference Range Interpretation Comments RDW (test code = RDW) 14.9 11.5-14.5 [facility] CampusLnouvvdOQIAXWUDEZ0714-56-72 16:54:00 Test Item Value Reference Range Interpretation Comments RBC X 10x6 (test code = RBC X 10x6) 4.31 4.20-5.40 [facility] CampusMglbmnmIQQHBKJUOX9319-44-14 16:54:00 Test Item Value Reference Range Interpretation Comments Hgb (test code = Hgb) 13.8 12.0-16.0 [facility] [id number] 16:54:00 Test Item Value Reference Range Interpretation Comments Hct (test code = Hct) 41.4 36.0-48.0 [facility] CampusNktkckxWDBDFDHMAP1200-56-47 16:54:00 Test Item Value Reference Range Interpretation Comments WBC X 10x3 (test code = WBC X 10x3) 6.6 3.7-10.4 [facility] Date/Time Note Provider Source 2021-02-07 13:11:29-00:00 PROCEDURE INFORMATION: BRIA [place] Exam: XR Chest Exam date and time: 02/07/2021 1:14 PM Age: 75 years old Clinical indication: Acute bronchitis, unspecifi ed; Additional info: /j20.9 TECHNIQUE: Imaging protocol: XR of the chest. Views: 2 views. PA and Lateral COMPARISON: CHEST 2 VIEWS DX 09/20/2020 12:36 PM FINDINGS: Lungs: There are normal lung volumes without con solidation or interstitial opacities. Pleural spaces: Unremarkable. No pleural effusio n. No pneumothorax. Heart/Mediastinum: The heart size is normal. The pulmonary vasculature is normal. The mediastinal contour is normal. The t rachea is midline. Bones/joints: No acute abnormality seen. IMPRESSION: No acute cardiopulmonary findings. Jorge Perez MD On 02/07/2021 19:46:27; VR-T [id number] 2021-02-07 13:11:29-00:00 PROCEDURE INFORMATION: BRIA [place] Exam: XR Chest Exam date and time: 02/07/2021 1:14 PM Age: 75 years old Clinical indication: Acute bronchitis, unspecifi ed; Additional info: /j20.9 TECHNIQUE: Imaging protocol: XR of the chest. Views: 2 views. PA and Lateral COMPARISON: CHEST 2 VIEWS DX 09/20/2020 12:36 PM FINDINGS: Lungs: There are normal lung volumes without con solidation or interstitial opacities. Pleural spaces: Unremarkable. No pleural effusio n. No pneumothorax. Heart/Mediastinum: The heart size is normal. The pulmonary vasculature is normal. The mediastinal contour is normal. The t rachea is midline. Bones/joints: No acute abnormality seen. IMPRESSION: No acute cardiopulmonary findings. Jorge Perez MD On 02/07/2021 19:46:27; VR-T [id number] 2020-09-20 12:25:00-00:00 PROCEDURE INFORMATION: [facility] Exam: XR Chest, 2 Views Exam date and time: 09/20/2020 12:33 PM Age: 75 years old Clinical indication: Other viral pneumonia; Rajesh tional info: /j12.89 other viral penumonia TECHNIQUE: Imaging protocol: XR of the chest Views: 2 views. PA and Lateral COMPARISON: CR CHEST 2 VIEWS DX 04/26/2020 8:09 AM FINDINGS: Tubes, catheters and devices: Surgical clips ove rlie the right abdomen. Lungs: Questionable minimal central perihilar in terstitial pulmonary infiltrates within the lungs. The peripheral eitan gs are otherwise clear. Pleural spaces: Unremarkable. No pleural effusio n. No pneumothorax. Heart/Mediastinum: Mediastinum and vannessa appear u nremarkable. Bones/joints: Diffusely decreased bone density. Mild to moderate generalized bony degenerative changes. IMPRESSION: 1. Questionable perihilar infiltrates. 2. Degenerative and postsurgical changes are demonstrated, as described above. Andree Mota MD On 09/21/2020 09:23:23; VR- [id number] 2020-09-20 12:25:00-00:00 PROCEDURE INFORMATION: [facility] Exam: XR Chest, 2 Views Exam date and time: 09/20/2020 12:33 PM Age: 75 years old Clinical indication: Other viral pneumonia; Rajesh tional info: /j12.89 other viral penumonia TECHNIQUE: Imaging protocol: XR of the chest Views: 2 views. PA and Lateral COMPARISON: CR CHEST 2 VIEWS DX 04/26/2020 8:09 AM FINDINGS: Tubes, catheters and devices: Surgical clips ove rlie the right abdomen. Lungs: Questionable minimal central perihilar in terstitial pulmonary infiltrates within the lungs. The peripheral eitan gs are otherwise clear. Pleural spaces: Unremarkable. No pleural effusio n. No pneumothorax. Heart/Mediastinum: Mediastinum and vannessa appear u nremarkable. Bones/joints: Diffusely decreased bone density. Mild to moderate generalized bony degenerative changes. IMPRESSION: 1. Questionable perihilar infiltrates. 2. Degenerative and postsurgical changes are demonstrated, as described above. Andree Mota MD On 09/21/2020 09:23:23; VR- [id number] 2020-06-19 09:51:00-00:00 PROCEDURE INFORMATION: [facility] Exam: FL Swallowing Function with Cine or Video Exam date and time: 06/19/2020 10:20 AM Age: 74 years old Clinical indication: Diaphragmatic hernia withou t obstruction or gangrene; Additional info: /k44.9 gastroesophageal reflux disease with hiatal hernia. Patient states HX of cough due from acid reflux and hiatal hernia found in October on egd TECHNIQUE: Imaging protocol: Swallowing function, with cine radiography/ videoradiograph. Guided with fluoroscopy. Exam supervised by faci lity personnel. Other contrast: Oral, barium, 100; COMPARISON: SPINE CERVICAL WO CONTRAST MRI 09/26/2018 8:38 AM RADIATION DOSE METRICS: Fluoroscopy time (seconds): 160 Number of fluoro spot images: 4400 Reference air kerma (LUCINDA): 154 mGy FINDINGS: Assistants: None Faculty Instructor: No passenger tire builder taken Procedure summary: Thin barium was utilized for recumbent prone obl ique and LPO images. Thick barium was utilized for upright imaging of the e sophagus and pharynx. Granola mixed with barium was given to evaluate motility with solids. Oropharynx: There is no delay in passage of the barium bolus from the pharynx into the esophagus. The cricopharyngeus relaxes normally. There is no evidence for cricopharyngeal bar or Zenker's diverticulum . Esophagus: Prone and LPO sequences demonstrate n ormal esophageal calliber. There is a 3-4 cm hiatal hernia. Reflux is demon strated with minimal provocative maneuvers to the lower esoph garrick. There are no tertiary waves with normal passage of contrast. Upright images revea l tertiary waves with mild to moderate dysmotility and delay of liquid passage. No mass lesions or stictures are visualized. The hernia reduces to 1-2 cm in the upright position. Other findings: Subsequently 2 separate swallows of a small piece of granola and barium were fluoroscopically followe d through the length of the esophagus. There is moderate to severe dysmotility and kyle y of solid passage. IMPRESSION: 1. 3-4 cm sliding hiatal hernia. 2. Reflux. 3. Mwsm-ha-wcejvybg dysmotility and delay of liq uid barium passage. 4. Moderate to severe dysmotility delay of solid barium passage. Todd Winters MD On 06/19/2020 13:44:29; NORMA [id number] 2020-06-19 09:51:00-00:00 PROCEDURE INFORMATION: [facility] Exam: FL Swallowing Function with Cine or Video Exam date and time: 06/19/2020 10:20 AM Age: 74 years old Clinical indication: Diaphragmatic hernia withou t obstruction or gangrene; Additional info: /k44.9 gastroesophageal reflux disease with hiatal hernia. Patient states HX of cough due from acid reflux and hiatal hernia found in October on egd TECHNIQUE: Imaging protocol: Swallowing function, with cine radiography/ videoradiograph. Guided with fluoroscopy. Exam supervised by [facility] personnel. Other contrast: Oral, barium, 100; COMPARISON: SPINE CERVICAL WO CONTRAST MRI 09/26/2018 8:38 AM RADIATION DOSE METRICS: Fluoroscopy time (seconds): 160 Number of fluoro spot images: 4400 Reference air kerma (LUCINDA): 154 mGy FINDINGS: Assistants: None Faculty Instructor: No passenger tire builder taken Procedure summary: Thin barium was utilized for recumbent prone obl ique and LPO images. Thick barium was utilized for upright imaging of the e sophagus and pharynx. Granola mixed with barium was given to evaluate motility with solids. Oropharynx: There is no delay in passage of the barium bolus from the pharynx into the esophagus. The cricopharyngeus relaxes normally. There is no evidence for cricopharyngeal bar or Zenker's diverticulum . Esophagus: Prone and LPO sequences demonstrate n ormal esophageal calliber. There is a 3-4 cm hiatal hernia. Reflux is demon strated with minimal provocative maneuvers to the lower esoph garrick. There are no tertiary waves with normal passage of contrast. Upright images revea l tertiary waves with mild to moderate dysmotility and delay of liquid passage. No mass lesions or stictures are visualized. The hernia reduces to 1-2 cm in the upright position. Other findings: Subsequently 2 separate swallows of a small piece of granola and barium were fluoroscopically followe d through the length of the esophagus. There is moderate to severe dysmotility and kyle y of solid passage. IMPRESSION: 1. 3-4 cm sliding hiatal hernia. 2. Reflux. 3. Jzyr-sy-fwrthbyv dysmotility and delay of liq uid barium passage. 4. Moderate to severe dysmotility delay of solid barium passage. Todd Winters MD On 06/19/2020 13:44:29; NORMA [id number] 2020-05-21 10:17:22-00:00 [facility] BILATERAL DIGITAL SCREENING MAMMOGRAM 3D/2D WITH CAD: 05/21/2020 CLINICAL: /Routine. Current study was evaluated with a Audit Specialist d Detection (CAD) system. COMPARISON:No prior exams were available for [facility]. TECHNIQUE: Digital Breast To mosynthesis was performed and utilized for Interpretation. Current study was also evaluated with a Computer Aided Detection (CAD) system. FINDINGS: The tissue of both breasts i s heterogeneously dense, which could obscure detection of small masses. No prior examinations are currently available fo r comparison. There are benign vascular ca lcifications and calcifications in both breasts. There also is a benign intramammary node in the right breast. No significant masses, calci fications, or other findings are seen in either breast. IMPRESSION: BENIGN RECOMMENDATION:There is no m ammographic evidence of malignancy. A 1 year screening mammogram is recommended.(05/22/2021) This exam was interpreted at [id number] for [facility]. Dr. Irina guzman/teri:05/21/2020 17:01:21 Manager Clinical Services(s): Reyna Shultz [facility] letter sent: BI-RADS 1/2 Mammogram BI-RADS: 2 Benign 2020-05-21 10:17:22-00:00 [facility] BILATERAL DIGITAL SCREENING MAMMOGRAM 3D/2D WITH CAD: 05/21/2020 CLINICAL: /Routine. Current study was evaluated with a Audit Specialist d Detection (CAD) system. COMPARISON:No prior exams were available for [facility]. TECHNIQUE: Digital Breast To mosynthesis was performed and utilized for Interpretation. Current study was also evaluated with a Computer Aided Detection (CAD) system. FINDINGS: The tissue of both breasts i s heterogeneously dense, which could obscure detection of small masses. No prior examinations are currently available fo r comparison. There are benign vascular ca lcifications and calcifications in both breasts. There also is a benign intramammary node in the right breast. No significant masses, calci fications, or other findings are seen in either breast. IMPRESSION: BENIGN RECOMMENDATION:There is no m ammographic evidence of malignancy. A 1 year screening mammogram is recommended.(05/22/2021) This exam was interpreted at [id number] for [facility]. Dr. Irina guzman/teri:05/21/2020 17:01:21 Manager Clinical Services(s): Reyan Shultz [facility] letter sent: BI-RADS 1/2 Mammogram BI-RADS: 2 Benign 2020-04-26 08:14:00-00:00 Radiation Dose CTDIVOL = 0 ( mGy): DLP = 574.49 (mGy-cm) [facility] PROCEDURE INFORMATION: Exam: CT Maxillofacial Without Contrast, Sinus Exam date and time: 04/26/2020 8:17 AM Age: 74 years old Clinical indication: Chronic sinusitis, unspecified; Additional info: /chronic sinusitis TECHNIQUE: Imaging protocol: CT Maxillofacial without contr ast. Focus on the sinuses. Radiation optimization: All CT scans at this facility use at least one of these dose optimization techniques: automated exposure control; mA and/or kV adjustment per patient size (includes targeted e xams where dose is matched to clinical indication); or iterative reconstructio n. COMPARISON: No relevant prior studies available. RADIATION DOSE METRICS: Total DLP (mGy-cm): 574.49 FINDINGS: Frontal sinuses: Normal. No air-fluid levels. Ethmoid air cells: Normal. No air-fluid levels. Sphenoid sinuses: Normal. No air-fluid levels. Maxillary sinuses: Mild bilateral maxillary muco thad thickening is noted superiorly measuring 2 mm on the right and 3 mm on the left. No air-fluid level. Orbits: Orbits are normal. Globes are unremarkab le. Nasal cavity/Septum: Left nasal septal deviation is present. Vasculature: Distal internal carotid arterial ca lcifications are present. Soft tissues: Unremarkable. Bones/joints: No fracture is present. No aggress annie lesion is present. IMPRESSION: 1. No air-fluid level to suggest acute sinusitis . 2. Left nasal septal deviation. 3. Mild bilateral maxillary mucosal thickening. Lino Larson MD On 04/26/2020 10:53:51; [id number] 2020-04-26 08:14:00-00:00 Radiation Dose CTDIVOL = 0 ( mGy): DLP = 574.49 (mGy-cm) BRIA [place] PROCEDURE INFORMATION: Exam: CT Maxillofacial Without Contrast, Sinus Exam date and time: 04/26/2020 8:17 AM Age: 74 years old Clinical indication: Chronic sinusitis, unspecified; Additional info: /chronic sinusitis TECHNIQUE: Imaging protocol: CT Maxillofacial without contr ast. Focus on the sinuses. Radiation optimization: All CT scans at this facility use at least one of these dose optimization techniques: automated exposure control; mA and/or kV adjustment per patient size (includes targeted e xams where dose is matched to clinical indication); or iterative reconstructio n. COMPARISON: No relevant prior studies available. RADIATION DOSE METRICS: Total DLP (mGy-cm): 574.49 FINDINGS: Frontal sinuses: Normal. No air-fluid levels. Ethmoid air cells: Normal. No air-fluid levels. Sphenoid sinuses: Normal. No air-fluid levels. Maxillary sinuses: Mild bilateral maxillary muco thad thickening is noted superiorly measuring 2 mm on the right and 3 mm on the left. No air-fluid level. Orbits: Orbits are normal. Globes are unremarkab le. Nasal cavity/Septum: Left nasal septal deviation is present. Vasculature: Distal internal carotid arterial ca lcifications are present. Soft tissues: Unremarkable. Bones/joints: No fracture is present. No aggress annie lesion is present. IMPRESSION: 1. No air-fluid level to suggest acute sinusitis . 2. Left nasal septal deviation. 3. Mild bilateral maxillary mucosal thickening. Lino Larson MD On 04/26/2020 10:53:51; [id number] 2020-04-26 08:12:09-00:00 PROCEDURE INFORMATION: BRIA [place] Exam: XR Chest, 2 Views Exam date and time: 04/26/2020 8:09 AM Age: 74 years old Clinical indication: Cough; Additional info: /r0 5 cough TECHNIQUE: Imaging protocol: XR of the chest Views: 2 views. Other technique: 2 views, frontal and lateral. COMPARISON: CHEST 2 VIEWS DX 09/12/2018 10:59 AM FINDINGS: Lungs: No infiltrates or other focal abnormaliti es. Pleural space: No pleural effusions. No pneumoth orax. Heart/Mediastinum: Mild cardiomegaly without ove rt failure. Bones/joints: The regional skeleton is unremarka ble. Intraperitoneal space: There are surgical clips in the right upper quadrant consistent with a prior cholecystectomy. IMPRESSION: 1. There is no evidence of an active or acute pr ocess within the chest. 2. Mild cardiomegaly without overt failure. 3. There are surgical clips in the right upper quadrant consistent with a prior cholecystectomy. Nito Connolly MD On 04/26/2020 10:54:23; LAUREN [id number] 2020-04-26 08:12:09-00:00 PROCEDURE INFORMATION: YURIY [place] Exam: XR Chest, 2 Views Exam date and time: 04/26/2020 8:09 AM Age: 74 years old Clinical indication: Cough; Additional info: /r0 5 cough TECHNIQUE: Imaging protocol: XR of the chest Views: 2 views. Other technique: 2 views, frontal and lateral. COMPARISON: CHEST 2 VIEWS DX 09/12/2018 10:59 AM FINDINGS: Lungs: No infiltrates or other focal abnormaliti es. Pleural space: No pleural effusions. No pneumoth orax. Heart/Mediastinum: Mild cardiomegaly without ove rt failure. Bones/joints: The regional skeleton is unremarka ble. Intraperitoneal space: There are surgical clips in the right upper quadrant consistent with a prior cholecystectomy. IMPRESSION: 1. There is no evidence of an active or acute pr ocess within the chest. 2. Mild cardiomegaly without overt failure. 3. There are surgical clips in the right upper quadrant consistent with a prior cholecystectomy. Nito Connolly MD On 04/26/2020 10:54:23; LAUREN [id number] 2019-10-10 13:00:00-00:00 PROCEDURE INFORMATION: YURIY [place] Exam: US Abdomen Complete Exam date and time: 10/10/2019 11:18 AM Age: 74 years old Clinical indication: /abnormal lfts TECHNIQUE: Imaging protocol: Real-time ultrasound of the abdomen with image documentation. COMPARISON: No relevant prior studies available. FINDINGS: Liver: Normal in size and morphology. The main p ortal vein is patent with normal directional flow. Gallbladder: Surgically absent. Bile ducts: No intrahepatic biliary duct al dilation. CBD is normal in caliber, measuring 6 mm. No calculi are noted within the visualized portions of the common bile duct. Spleen: Normal in size, measuring 8.5 cm, withou t masses. Pancreas: Visualized portions are unremarkable. Right kidney: Normal in size, measuring 9.7 x 5.5 x 4.8 cm. No mass, calculus, or hydronephrosis. Left kidney: Normal in size, measuring 1 0.6 x 4.4 x 5.0 cm. A 3 mm hyperechoic focus is noted likely representing a pun ctate nonobstructing calculus. No mass or hydronephrosis. Aorta/IVC: Visualized portions are within normal limits. Free Fluid: No free fluid. IMPRESSION: 1. No acute abdominal findings. 2. Punctate nonobstructing left renal calculus. Lisette Langley MD On 10/10/2019 16:29:49; VR-MX___ [id number] 13:00:00-00:00 PROCEDURE INFORMATION: [facility] Exam: US Abdomen Complete Exam date and time: 10/10/2019 11:18 AM Age: 74 years old Clinical indication: /abnormal lfts TECHNIQUE: Imaging protocol: Real-time ultrasound of the abdomen with image documentation. COMPARISON: No relevant prior studies available. FINDINGS: Liver: Normal in size and morphology. The main p ortal vein is patent with normal directional flow. Gallbladder: Surgically absent. Bile ducts: No intrahepatic biliary duct al dilation. CBD is normal in caliber, measuring 6 mm. No calculi are noted within the visualized portions of the common bile duct. Spleen: Normal in size, measuring 8.5 cm, withou t masses. Pancreas: Visualized portions are unremarkable. Right kidney: Normal in size, measuring 9.7 x 5.5 x 4.8 cm. No mass, calculus, or hydronephrosis. Left kidney: Normal in size, measuring 1 0.6 x 4.4 x 5.0 cm. A 3 mm hyperechoic focus is noted likely representing a pun ctate nonobstructing calculus. No mass or hydronephrosis. Aorta/IVC: Visualized portions are within normal limits. Free Fluid: No free fluid. IMPRESSION: 1. No acute abdominal findings. 2. Punctate nonobstructing left renal calculus. Lisette Langley MD On 10/10/2019 16:29:49; [id number]___ [id number] 10:58:00-00:00 PROCEDURE INFORMATION: [facility] Exam: XR Right Wrist Exam date and time: 08/08/2019 10:58 AM Age: 74 years old Clinical indication: Injury or trauma; Additiona l info: /pain and swelling TECHNIQUE: Imaging protocol: XR Right wrist. Views: 3 or more views. Frontal Oblique Lateral COMPARISON: WRIST WO CONTRAST MRI, RIGHT 09/22/2016 3:13 PM FINDINGS: Bones/joints: There is no definite evide nce for acute fracture or subluxation. Advanced degenerative changes are present at the 1st carpometacarpal joint. There is calcification at the triangular fibroca rtilage. Chronic deformity of the ulnar aspect of the radius is simila r in appearance to previous MRI study. Soft tissues: Extensive dorsal soft tissue swell ing is noted. Notes: If there is further concern, orthopedic c onsultation and/or followup radiographs or MRI of the wrist may be performed . IMPRESSION: No evidence for acute fracture or dislocation. A dvanced degenerative changes and other chronic changes in the wrist are noted as discussed above. Dexter Hull MD On 08/08/2019 12:04:22; [id number] 10:58:00-00:00 PROCEDURE INFORMATION: [facility] Exam: XR Right Hand Exam date and time: 08/08/2019 10:58 AM Age: 74 years old Clinical indication: /pain and swelling TECHNIQUE: Imaging protocol: XR Right hand. Views: 3 or more views. Frontal Oblique Lateral COMPARISON: WRIST WO CONTRAST MRI, RIGHT 09/22/2016 3:13 PM FINDINGS: No evidence of acute fracture. There is chronic scalloping and erosive change of the sigmoid notch of the distal radius with ulnar negative variance. This is suggestive of ulnar impingement. There is severe degenerative change of the first CMC joint. Mild diffuse degenerative [place] e of the DIP joints. There is soft tissue swelling. There are small ca lcific densities adjacent to the ulnar styloid, age indeterminate. If there is persistent clinical concern, follow up CT or MRI is recommended. IMPRESSION: 1. No definitive acute displaced fractures. 2. Chronic appearing changes of the hand and wri st, as above. Octavio Miller MD On 08/08/2019 12:02:22; [id number]-MHERM [id number] 10:58:00-00:00 PROCEDURE INFORMATION: [facility] Exam: XR Right Wrist Exam date and time: 08/08/2019 10:58 AM Age: 74 years old Clinical indication: Injury or trauma; Additiona l info: /pain and swelling TECHNIQUE: Imaging protocol: XR Right wrist. Views: 3 or more views. Frontal Oblique Lateral COMPARISON: WRIST WO CONTRAST MRI, RIGHT 09/22/2016 3:13 PM FINDINGS: Bones/joints: There is no definite evide nce for acute fracture or subluxation. Advanced degenerative changes are present at the 1st carpometacarpal joint. There is calcification at the triangular fibroca rtilage. Chronic deformity of the ulnar aspect of the radius is simila r in appearance to previous MRI study. Soft tissues: Extensive dorsal soft tissue swell ing is noted. Notes: If there is further concern, orthopedic c onsultation and/or followup radiographs or MRI of the wrist may be performed . IMPRESSION: No evidence for acute fracture or dislocation. A dvanced degenerative changes and other chronic changes in the wrist are noted as discussed above. Dexter Hull MD On 08/08/2019 12:04:22; [id number] 10:58:00-00:00 PROCEDURE INFORMATION: [facility] Exam: XR Right Hand Exam date and time: 08/08/2019 10:58 AM Age: 74 years old Clinical indication: /pain and swelling TECHNIQUE: Imaging protocol: XR Right hand. Views: 3 or more views. Frontal Oblique Lateral COMPARISON: WRIST WO CONTRAST MRI, RIGHT 09/22/2016 3:13 PM FINDINGS: No evidence of acute fracture. There is chronic scalloping and erosive change of the sigmoid notch of the distal radius with ulnar negative variance. This is suggestive of ulnar impingement. There is severe degenerative change of the first CMC joint. Mild diffuse degenerative [place] of the DIP joints. There is soft tissue swelling. There are small ca lcific densities adjacent to the ulnar styloid, age indeterminate. If there is persistent clinical concern, follow up CT or MRI is recommended. IMPRESSION: 1. No definitive acute displaced fractures. 2. Chronic appearing changes of the hand and wri st, as above. Octavio Miller MD On 08/08/2019 12:02:22; VR-MHERM [id number] 08:33:00-00:00 Clinical Indication: - .. Ch ronic neck pain radiating to the left shoulder, worsening for the last 3 weeks. [facility] Comparison: Magnetic resonance imaging of the le ft shoulder on 09/16/2018. TECHNIQUE: Multiplanar T1, T 2, and STIR weighted MRI of the cervical spine is performed. FINDINGS: ALIGNMENT AND GENERAL ASSESS MENT: There is straightening of the cervical lordosis. There are no fractures or subluxations. The craniocervical junction is normal. The atlanto-dental alignment appears unr emarkable. The facet joint, spinolaminar and spinous process alignment are normal. No aggressive bone marrow ab normality is present. There are degenerative intensity changes of the cervical vertebra most pronounced at C4 vertebra body. The prevertebral soft tissues are within normal l imits. The posterior paraspinal soft tissues are unremarkable. There are multilevel degener ative osteophytes. There are multilevel Schmorl nodules most pronounced within the inferior endplate of C3. Possible posterior longitudinal ligament calcification most pronounced at C3-C4 C4-C5 and C5-C6. The visualized brainstem reg ion is unremarkable. The cervical spinal cord is normal in size. There is slight increased signal within the cervical spinal cord at C4 level, likely due to myelomalacia. The right vertebral artery i s dominant. The visualized left vertebral artery is hypoplastic. DISC SPACES: There is intens ity and severe height loss of entire cervical intervertebral disc spaces. C2-3: Mild right central dis c bulging. Moderate bilateral facet joint hypertrophy. No central spinal stenosis. No foraminal stenosis. C3-4: Right central disc pro trusion. Central osteophytic complex. Mild effacement of the thecal sac anteriorly. Mild right, mild to moderate facet facet joint hypertrophy. Mild indentation of the cervic al spinal cord. Moderate unc overtebral hypertrophy. Moderate to severe central spinal stenosis with an AP diameter of 6 mm. Moderate right, mild left foraminal stenosis. C4-5: Central disc protrusio n with osteophytic complex. Severe thecal sac compression anteriorly with cervical spinal cord compression. Mild right, mild to moderate left facet joint hypertrophy. Moderat e to severe central spinal s tenosis with an AP diameter of 5.5 mm. Mild bilateral foraminal stenosis. C5-6: Severe central disc os teophytic complex with severe technical sac compression and moderate compression of the cervical spinal cord. Mild bilateral facet joint hypertrophy. Moderate to severe centr al spinal stenosis with an A P diameter of 5.5 mm. Mild bilateral foraminal stenosis. C6-7: Central disc osteophyt ic complex with effacement of the thecal sac anteriorly with mild indentation of the cervical spinal cord. The right facet joint is unremarkable. Mild left facet joint hypert rophy. Moderate to severe ce ntral spinal stenosis with an AP diameter of 6 mm.. No foraminal stenosis. C7-T1: Small central disc os teophytic complex. Mild right, mild to moderate left facet joint hypertrophy. Mild central spinal stenosis with an AP diameter of 9 mm. No right foraminal stenosis. Moderate left foraminal narrowing. IMPRESSION: 1. Multilevel moderate to severe central spinal stenosis. 2. Severe degenerative cervi ct spine disease as detailed above with the worst level at C4-C5 and C5-C6 with severe thecal sac compression anteriorly with moderate compression of the cervical spinal cord . 3. Increased T2 signal withi n the cervical spinal cord at C4 level, likely due to myelomalacia. SL: REYNALDO 2018-09-26 08:33:00-00:00 Clinical Indication: - .. Ch ronic neck pain radiating to the left shoulder, worsening for the last 3 weeks. [facility] Comparison: Magnetic resonance imaging of the le ft shoulder on 09/16/2018. TECHNIQUE: Multiplanar T1, T 2, and STIR weighted MRI of the cervical spine is performed. FINDINGS: ALIGNMENT AND GENERAL ASSESS MENT: There is straightening of the cervical lordosis. There are no fractures or subluxations. The craniocervical junction is normal. The atlanto-dental alignment appears unr emarkable. The facet joint, spinolaminar and spinous process alignment are normal. No aggressive bone marrow ab normality is present. There are degenerative intensity changes of the cervical vertebra most pronounced at C4 vertebra body. The prevertebral soft tissues are within normal l imits. The posterior paraspinal soft tissues are unremarkable. There are multilevel degener ative osteophytes. There are multilevel Schmorl nodules most pronounced within the inferior endplate of C3. Possible posterior longitudinal ligament calcification most pronounced at C3-C4 C4-C5 and C5-C6. The visualized brainstem reg ion is unremarkable. The cervical spinal cord is normal in size. There is slight increased signal within the cervical spinal cord at C4 level, likely due to myelomalacia. The right vertebral artery i s dominant. The visualized left vertebral artery is hypoplastic. DISC SPACES: There is intens ity and severe height loss of entire cervical intervertebral disc spaces. C2-3: Mild right central dis c bulging. Moderate bilateral facet joint hypertrophy. No central spinal stenosis. No foraminal stenosis. C3-4: Right central disc pro trusion. Central osteophytic complex. Mild effacement of the thecal sac anteriorly. Mild right, mild to moderate facet facet joint hypertrophy. Mild indentation of the cervic al spinal cord. Moderate unc overtebral hypertrophy. Moderate to severe central spinal stenosis with an AP diameter of 6 mm. Moderate right, mild left foraminal stenosis. C4-5: Central disc protrusio n with osteophytic complex. Severe thecal sac compression anteriorly with cervical spinal cord compression. Mild right, mild to moderate left facet joint hypertrophy. Moderat e to severe central spinal s tenosis with an AP diameter of 5.5 mm. Mild bilateral foraminal stenosis. C5-6: Severe central disc os teophytic complex with severe technical sac compression and moderate compression of the cervical spinal cord. Mild bilateral facet joint hypertrophy. Moderate to severe centr al spinal stenosis with an A P diameter of 5.5 mm. Mild bilateral foraminal stenosis. C6-7: Central disc osteophyt ic complex with effacement of the thecal sac anteriorly with mild indentation of the cervical spinal cord. The right facet joint is unremarkable. Mild left facet joint hypert rophy. Moderate to severe ce ntral spinal stenosis with an AP diameter of 6 mm.. No foraminal stenosis. C7-T1: Small central disc os teophytic complex. Mild right, mild to moderate left facet joint hypertrophy. Mild central spinal stenosis with an AP diameter of 9 mm. No right foraminal stenosis. Moderate left foraminal narrowing. IMPRESSION: 1. Multilevel moderate to severe central spinal stenosis. 2. Severe degenerative cervi ct spine disease as detailed above with the worst level at C4-C5 and C5-C6 with severe thecal sac compression anteriorly with moderate compression of the cervical spinal cord . 3. Increased T2 signal withi n the cervical spinal cord at C4 level, likely due to myelomalacia. SL: REYNALDO 2018-09-16 07:06:00-00:00 Exam: Left Shoulder wo contrast MRI [facility] [place] Clinical Indication: M75.122 Complete rotator cuff tear or rupture of left shoulder, not specified as traumatic. Left shoulder and neck pain that radiates down arm. Comparison: Left shoulder radiographs 09/12/2018 TECHNIQUE: Axial, oblique co demetrius, and oblique sagittal MR images of the left shoulder. IV contrast: None. FINDINGS: ROTATOR CUFF AND ASSOCIATED STRUCTURES Rotator cuff: There is parti al-thickness interstitial tear at the insertion of the supraspinatus tendon involving about 50% thickness and measuring 0.8 cm AP. There is partial-thickness articular sided tear at the posterior insert ion of the infraspinatus tendon involving about 25% thickness and measuring 0.4 cm AP. The teres minor and subscapularis tendons appear intact. Bursa: No bursal effusion or thickening is seen. Musculature: There is no muscular tear, contusio n, or atrophy. Acromioclavicular joint: The re are moderate degenerative changes of the acromioclavicular joint. A type 2 acromion configuration is noted. There is no anterior or lateral acromial downsloping. OSSEOUS STRUCTURES A geographic lobulated lesio n is present in the anterior humeral neck measuring 1.7 x 0.8 x 1.0 cm. This demonstrates high T2 signal and dark T1 signal with features most suggestive of benign cartilagin ous lesion such as an enchondroma. No acute frac ture. LONG BICIPITAL TENDON The biceps tendon is normall y situated within the bicipital groove. No complete or partial biceps tendon tear is present. GLENOHUMERAL JOINT Joint fluid: There is no glenohumeral joint effu [place]ira. Cartilage: Near full-thickne ss cartilage loss present in the central glenoid with mild subchondral cystic change. Moderate cartilage thinning present along the lateral humeral head. Labrum: Grossly intact. No paralabral cysts are seen. OTHER FINDINGS: None. IMPRESSION: 1. Partial-thickness interst itial tear at the insertion of the supraspinatus tendon. 2. Partial-thickness articul ar sided tear at the posterior insertion of the infraspinatus tendon. 3. Moderate glenohumeral joint and AC joint dege nerative arthritis. 4. Incidental lesion in the humerus neck has characteristics most suggestive of a benign cartilaginous lesion such as an enchondroma. SL: [id number] 2018-09-16 07:06:00-00:00 Exam: Left Shoulder wo contrast MRI [facility] [place] Clinical Indication: M75.122 Complete rotator cuff tear or rupture of left shoulder, not specified as traumatic. Left shoulder and neck pain that radiates down arm. Comparison: Left shoulder radiographs 09/12/2018 TECHNIQUE: Axial, oblique co demetrius, and oblique sagittal MR images of the left shoulder. IV contrast: None. FINDINGS: ROTATOR CUFF AND ASSOCIATED STRUCTURES Rotator cuff: There is parti al-thickness interstitial tear at the insertion of the supraspinatus tendon involving about 50% thickness and measuring 0.8 cm AP. There is partial-thickness articular sided tear at the posterior insert ion of the infraspinatus tendon involving about 25% thickness and measuring 0.4 cm AP. The teres minor and subscapularis tendons appear intact. Bursa: No bursal effusion or thickening is seen. Musculature: There is no muscular tear, contusio n, or atrophy. Acromioclavicular joint: The re are moderate degenerative changes of the acromioclavicular joint. A type 2 acromion configuration is noted. There is no anterior or lateral acromial downsloping. OSSEOUS STRUCTURES A geographic lobulated lesio n is present in the anterior humeral neck measuring 1.7 x 0.8 x 1.0 cm. This demonstrates high T2 signal and dark T1 signal with features most suggestive of benign cartilagin ous lesion such as an enchondroma. No acute frac ture. LONG BICIPITAL TENDON The biceps tendon is normall y situated within the bicipital groove. No complete or partial biceps tendon tear is present. GLENOHUMERAL JOINT Joint fluid: There is no glenohumeral joint effu [place]. Cartilage: Near full-thickne ss cartilage loss present in the central glenoid with mild subchondral cystic change. Moderate cartilage thinning present along the lateral humeral head. Labrum: Grossly intact. No paralabral cysts are seen. OTHER FINDINGS: None. IMPRESSION: 1. Partial-thickness interst itial tear at the insertion of the supraspinatus tendon. 2. Partial-thickness articul ar sided tear at the posterior insertion of the infraspinatus tendon. 3. Moderate glenohumeral joint and AC joint dege nerative arthritis. 4. Incidental lesion in the humerus neck has characteristics most suggestive of a benign cartilaginous lesion such as an enchondroma. SL: [id number] 2018-09-12 10:39:00-00:00 Exam: Left Shoulder series DX [facility] Clinical Indication: -Left s houlder pain. Atraumatic, evaluate for impingement. Comparison: None. FINDINGS: The AP, lateral and oblique views of the shoulder show normal alignment at the glenohumeral joint. Mild inferolateral tilt of the acromion is seen with subacromial space narrowing, which may result in r otator cuff impingement. The re are no fractures or dislocations. Mild acromioclavicular degenerative changes are seen. The visualized scapula and clavicle are unremarkable. There are no radiopaque foreign bodies or soft tissue swelling. If there is further concern, followup radiographs or MRI of the shoulder may be performed for complete assessment. IMPRESSION: 1. No fractures or dislocati ons of the left shoulder. Mild degenerative changes of the left shoulder, as noted above. SL: [id number] 2018-09-12 10:39:00-00:00 Exam: Left Shoulder series DX [facility] Clinical Indication: -Left s houlder pain. Atraumatic, evaluate for impingement. Comparison: None. FINDINGS: The AP, lateral and oblique views of the shoulder show normal alignment at the glenohumeral joint. Mild inferolateral tilt of the acromion is seen with subacromial space narrowing, which may result in r otator cuff impingement. The re are no fractures or dislocations. Mild acromioclavicular degenerative changes are seen. The visualized scapula and clavicle are unremarkable. There are no radiopaque foreign bodies or soft tissue swelling. If there is further concern, followup radiographs or MRI of the shoulder may be performed for complete assessment. IMPRESSION: 1. No fractures or dislocati ons of the left shoulder. Mild degenerative changes of the left shoulder, as noted above. SL: [id number] 2018-09-12 10:38:00-00:00 XR CHEST 2 VIEWS [facility] HISTORY: - Chest pain COMPARISON: 08/05/2017 FINDINGS: Mild cardiac promi nence. No significant vascular congestion. Indistinct opacity at the lateral aspect of the left lung base. Lungs are otherwise clear. No pleural abnormality. Mild atheromatou s calcification within the aorta. No significant skeletal abnormality. IMPRESSION: 1. Mild left basilar opacity suggestive of atele ctasis or infiltrate. SL: [id number] 2018-09-12 10:38:00-00:00 [facility] - Chest pain COMPARISON: 08/05/2017 FINDINGS: Mild cardiac promi nence. No significant vascular congestion. Indistinct opacity at the lateral aspect of the left lung base. Lungs are otherwise clear. No pleural abnormality. Mild atheromatou s calcification within the aorta. No significant skeletal abnormality. IMPRESSION: 1. Mild left basilar opacity suggestive of atele ctasis or infiltrate. SL: [id number] 2017-08-07 11:25:37-00:00 Clinical Indication: Headach e for 2 to 3 weeks with chest pressure since yesterday [facility] Comparison: None TECHNIQUE: CT images were ob tained from the foramen magnum to the vertex without the use of intravenous contrast on a multidetector CT. Coronal and sagittal reconstructions were obtained. CT radiation dose DLP: 917.79 mGy-cm FINDINGS: BRAIN PARENCHYMA: There are normal benson-white interfaces, sulci and gyri. There are no focal mass lesions on this noncontrast head CT. There is no mass effect, midline shift or edema. There are no intra -axial or extra-axial fluid collections, intraventricular or intraparenchymal hemorrhage. The pineal, sellar, brainstem, cerebellum and skull base regions appear unremarkable. There are trace changes of chronic microvascular ischemia. VENTRICLES: The lateral vent ricles, third and fourth ventricles appear unremarkable. The basilar cisterns are normal. ORBITS, MASTOIDS AND PARANAS AL SINUSES: The visualized orbits and paranasal sinuses are unremarkable. The mastoid air cells are clear. SKULL: There are no osseous abnormalities. If there is further concern for intracranial pathology or acute stroke, MRI of the brain may be performed for complete assessment. IMPRESSION: Unremarkable noncontrast hea d CT with no mass, hemorrhage or subacute stroke. Chronic changes as described above. SL: [id number] 2017-08-07 11:25:37-00:00 Clinical Indication: Headach e for 2 to 3 weeks with chest pressure since yesterday [facility] Comparison: None TECHNIQUE: CT images were ob tained from the foramen magnum to the vertex without the use of intravenous contrast on a multidetector CT. Coronal and sagittal reconstructions were obtained. CT radiation dose DLP: 917.79 mGy-cm FINDINGS: BRAIN PARENCHYMA: There are normal benson-white interfaces, sulci and gyri. There are no focal mass lesions on this noncontrast head CT. There is no mass effect, midline shift or edema. There are no intra -axial or extra-axial fluid collections, intraventricular or intraparenchymal hemorrhage. The pineal, sellar, brainstem, cerebellum and skull base regions appear unremarkable. There are trace changes of chronic microvascular ischemia. VENTRICLES: The lateral vent ricles, third and fourth ventricles appear unremarkable. The basilar cisterns are normal. ORBITS, MASTOIDS AND PARANAS AL SINUSES: The visualized orbits and paranasal sinuses are unremarkable. The mastoid air cells are clear. SKULL: There are no osseous abnormalities. If there is further concern for intracranial pathology or acute stroke, MRI of the brain may be performed for complete assessment. IMPRESSION: Unremarkable noncontrast hea d CT with no mass, hemorrhage or subacute stroke. Chronic changes as described above. SL: [id number] 2017-08-07 10:40:01-00:00 Clinical Indication: - Heada zen x 2 to 3 weeks. Chest pressure since yesterday. States that 'shes just not feeling right' Has been seeing her PCP for this. [facility] Comparison: None FINDINGS: The frontal chest radiograph shows normal lung volumes without interstitial or airspace opacities, pleural effusions or pneumothorax. The cardiomediastinal contours are normal. The t rachea is midline. There are no clinically significant osseous abno rmalities noted. IMPRESSION: No chest radiographic evidence of acute cardiopu lmonary disease. SL: [id number] 2017-08-07 10:40:01-00:00 Clinical Indication: - Heada zen x 2 to 3 weeks. Chest pressure since yesterday. States that 'shes just not feeling right' Has been seeing her PCP for this. [facility] Comparison: None FINDINGS: The frontal chest radiograph shows normal lung volumes without interstitial or airspace opacities, pleural effusions or pneumothorax. The cardiomediastinal contours are normal. The t rachea is midline. There are no clinically significant osseous abno rmalities noted. IMPRESSION: No chest radiographic evidence of acute cardiopu lmonary disease. SL: [id number] 2016-09-22 15:23:02-00:00 MRI RIGHT WRIST WITHOUT CONTRAST YURIY Gonzalez HISTORY: ; M67.40 Ganglion, unspecified site; 71-year-old female reports painful mass of the posterior hand for approximately 18 months COMPARISON: None available. FINDINGS: Moderate fluid surrounds the tendons within the 4th and 5th dorsal extensor tendon compartments (extensor tendons of the digits) at the level of the carpus and proximal metacarpals, measuring approximat gema 4 cm in extent. No tendinopathy or tendon te ar. No soft tissue mass or ganglion cyst is seen wit hin the wrist. There is severe ulnar minus variance measuring 8mm with advanced macerated tearing of the triangular fibrocartilage and moderate to severe distortion and degenerative changes at the distal radioulnar joint. At least low to moderate gra de tear of the scapholunate ligament with mild scapholunate diastasis measuring 3 mm. Lunotriquetral ligament is intact. Mild/moderate diffuse cartilage thinning at the radiocarpal joint. 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 IMPRESSION: 1. Moderate dorsal extensor tenosynovitis which accounts for patient's palpable dorsal wrist mass. 2. No soft tissue mass or ganglion cyst. 3. 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 4. Severe chronic 1st CMC os teoarthritis with moderate radial and proximal subluxation of the 1st metacarpal base. 5. At least low to moderate grade tear of the scapholunate ligament with mild scapholunate diastasis. SL: [id number] 2016-09-22 15:23:02-00:00 MRI RIGHT WRIST WITHOUT CONTRAST BRIA Gonzalez HISTORY: ; M67.40 Ganglion, unspecified site; 71-year-old female reports painful mass of the posterior hand for approximately 18 months COMPARISON: None available. FINDINGS: Moderate fluid surrounds the tendons within the 4th and 5th dorsal extensor tendon compartments (extensor tendons of the digits) at the level of the carpus and proximal metacarpals, measuring approximat gema 4 cm in extent. No tendinopathy or tendon te ar. No soft tissue mass or ganglion cyst is seen wit hin the wrist. There is severe ulnar minus variance measuring 8mm with advanced macerated tearing of the triangular fibrocartilage and moderate to severe distortion and degenerative changes at the distal radioulnar joint. At least low to moderate gra de tear of the scapholunate ligament with mild scapholunate diastasis measuring 3 mm. Lunotriquetral ligament is intact. Mild/moderate diffuse cartilage thinning at the radiocarpal joint. 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 IMPRESSION: 1. Moderate dorsal extensor tenosynovitis which accounts for patient's palpable dorsal wrist mass. 2. No soft tissue mass or ganglion cyst. 3. 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 4. Severe chronic 1st CMC os teoarthritis with moderate radial and proximal subluxation of the 1st metacarpal base. 5. At least low to moderate grade tear of the scapholunate ligament with mild scapholunate diastasis. SL: [id number]
--- NOTE | 2023-03-11 01:21 | EDPHYS ---
Physician Documentation [facility] Name: Flores Esparza Age: 77 yrs Sex: Female : 1945 Arrival Date: 03/11/2023 Time: 00:58 Bed 5 Private MD: ED Physician Chase Guzman HPI: 03/11 01:23 This 77 yrs old Female presents to ER via Unassigned with complaints of Abdominal Pain. kb 01:23 The patient presents with abdominal pain. Onset: The symptoms/episode began/occurred kb just prior to arrival. The symptoms do not radiate. Associated signs and symptoms: Pertinent positives: nausea. The symptoms are described as constant. Modifying factors: The symptoms are alleviated by nothing, the symptoms are aggravated by nothing. Severity of pain: At its worst the pain was moderate severe in the emergency department the pain has resolved. The patient has not experienced similar symptoms in the past. The patient has not recently seen a physician. Pt reports she woke up with severe upper abd pain and nausea. States she belched quite a bit on the way here and now pain has resolved. Pt states she is feeling better so she prefers to go home at this time and will return for any concerns. I offered blood work, but she doesn't think it is necessary at this time. Historical: - Allergies: 01:26 Nitrofurantoin Macrocrystal; rv 01:26 Sulfa (Sulfonamide Antibiotics); rv - Immunization history:: Adult Immunizations. - Social history:: Smoking status: unknown. ROS: 01:22 Constitutional: Negative for fever, chills, and weight loss. kb 01:22 Abdomen/GI: Positive for abdominal pain, nausea. 01:22 All other systems are negative. Exam: 01:22 Constitutional: This is a well developed, well nourished patient who is awake, alert, kb and in no acute distress. Head/Face: Normocephalic, atraumatic. ENT: Moist Mucous membranes Cardiovascular: Regular rate and rhythm with a normal S1 and S2. No gallops, murmurs, or rubs. No pulse deficits. Respiratory: Respirations even and unlabored. No increased work of breathing. Talking in full sentences Abdomen/GI: Soft, non-tender. No distention Skin: Warm, dry with normal turgor. Normal color. MS/ Extremity: Pulses equal, no cyanosis. Neurovascular intact. Full, normal range of motion. Neuro: Awake and alert, GCS 15, oriented to person, place, time, and situation. Moves all extremities. Normal gait. Vital Signs: 01:23 Pulse 75; Resp 15; Pulse Ox 100% ; rv MDM: 01:20 Patient medically screened. kb 01:21 Differential diagnosis: myocardia ischemia or infarction, non-specific abd pain, kb pancreatitis. Data reviewed: vital signs, nurses notes. Test considered but Not performed: EKG: EKG considered, but pt elects to go home at this time and will return if symptoms return. Labs: cbc, cmp, trop, lipase considered, but symptoms resolved and pt requests to go home instead of having tests done. . 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 Administered Medications: No medications were administered Disposition: 01:58 Co-signature as Attending Physician, Chase Guzman MD I agree with the assessment sp4 and plan of care. I reviewed the patient's care provided by the Advanced Practice Provider and agree with the diagnosis and treatment plan. Disposition Summary: 03/11/23 01:21 Discharge Ordered Location: Home kb Condition: Stable kb Diagnosis - Upper abdominal pain, unspecified kb Followup: kb - With: Emergency Department - When: As needed - Reason: Worsening of condition Followup: kb - With: Private Physician - When: 2 - 3 days - Reason: Recheck today's complaints, Continuance of care, Re-evaluation by your physician Forms: - Medication Reconciliation Form kb - Thank You Letter kb - Antibiotic Education kb - Prescription Opioid Use kb - Patient Portal Instructions kb Signatures: Amy Baer FNP-C FNP-Ckb Vicente, Ronaldo, RN RN Chase Roach MD MD sp4
--- NOTE | 2023-03-11 01:27 | ER ---
Nurse's Notes [facility] Name: Flores Esparza Age: 77 yrs Sex: Female : 1945 Arrival Date: 03/11/2023 Time: 00:58 Bed 5 Private MD: Diagnosis: Upper abdominal pain, unspecified Presentation: 03/11 01:23 Chief complaint: sudden onset of pain to RUQ. denies pain at time of triage. rv Coronavirus screen: At this time, the client does not indicate any symptoms associated with coronavirus-19. Ebola Screen: No symptoms or risks identified at this time. Initial Sepsis Screen: Does the patient meet any 2 criteria? No. Patient's initial sepsis screen is negative. Does the patient have a suspected source of infection? No. Patient's initial sepsis screen is negative. Risk Assessment: Do you want to hurt yourself or someone else? Patient reports no desire to harm self or others. Onset of symptoms was March 11, 2023. : Method Of Arrival: Ambulatory rv : Acuity: GUANACO 3 rv Triage Assessment: General: Appears in no apparent distress. Behavior is calm, cooperative. Pain: Denies rv pain. GI: Reports nausea. Historical: - Allergies: : Nitrofurantoin Macrocrystal; rv Sulfa (Sulfonamide Antibiotics); rv - Immunization history:: Adult Immunizations. - Social history:: Smoking status: unknown. Screenin: [facility] ED Fall Risk Assessment (Adult) History of falling in the last 3 months, rv including since admission No falls in past 3 months (0 pts) Confusion or Disorientation No (0 pts) Intoxicated or Sedated No (0 pts) Impaired Gait No (0 pts) Mobility Assist Device Used No (0 pt) Altered Elimination No (0 pt) Score/Fall Risk Level 0 - 2 = Low Risk Oriented to surroundings, Maintained a safe environment, Educated pt \T\ family on fall prevention, incl call for assistance when getting out of bed, Assessed \T\ reinforced patient's understanding of fall precautions, Provided non-skid footwear, Hourly rounding (assess needs \T\ fall precautionary measures) done, Used ambulatory aids as needed (educated on \T\ assisted with), Used gait belt as appropriate. Abuse screen: Denies threats or abuse. Denies injuries from another. Nutritional screening: No deficits noted. Tuberculosis screening: No symptoms or risk factors identified. Assessment: 01:26 GI: Bowel sounds present X 4 quads. Abd is soft and non tender X 4 quads. rv Vital Signs: 01:23 Pulse 75; Resp 15; Pulse Ox 100% ; rv ED Course: 01:01 Patient arrived in ED. mr 01:16 Bj Peguero, RN is Primary Nurse. rv 01:20 Amy Baer FNP-C is [facility]. kb 01:20 Chase Guzman MD is Attending Physician. kb 01:24 Triage completed. rv 01:25 Patient has correct armband on for positive identification. Provided Education on: pain.rv 01:26 Arm band placed on. rv 01:26 No provider procedures requiring assistance completed. Patient did not have IV access rv during this emergency room visit. Administered Medications: No medications were administered Medication: : VIS not applicable for this client. rv Outcome: 01:21 Discharge ordered by . kb 01:27 Discharged to home ambulatory, with family. rv 01:27 Condition: improved 01:27 Discharge instructions given to patient, Instructed on discharge instructions, follow up and referral plans. Demonstrated understanding of instructions, follow-up care. 01:27 Patient left the ED. rv Signatures: Amy Baer FNP-C FNP-Yas Tanika Escobar mr Bj Peguero, RN RN rv
[2023-03-11 04:53] VITALS: O2SAT 100
== END 2023-03-11 01:27 | disposition home or self-care (01) ==
LOC: ER 00:58
DX: R10.10 Upper abdominal pain, unspecified (principal); R11.0 Nausea; Z88.2 Allergy status to sulfonamides; Z88.8 Allergy status to other drugs, medicaments and biological substances
CPT/HCPCS: 99282

== ENCOUNTER → 2023-08-23 | Emergency (ER) | payer OTHER ==
--- NOTE | 2023-08-23 13:03 | ER ---
Nurse's Notes [facility] Name: Flores Esparza Age: 78 yrs Sex: Female : 1945 Arrival Date: 08/23/2023 Time: 12:30 Bed IW2 Private MD: Diagnosis: SARS-associated coronavirus as the cause of diseases classified elsewhere Presentation: 08/23 12:48 Chief complaint: Patient states: Started feeling ill yesterday with cough, fever, cm10 congestion and chest pressure. Pt reports that the chest pressure feels like it does when she gets bronchitis. Pt states that she took a home COVID test today and it was positive. Coronavirus screen: Vaccine status: Patient reports receiving the 2nd dose of the covid vaccine. Client denies travel out of the [place] in the last 14 days. Ebola Screen: Patient denies travel to an Ebola-affected area in the 21 days before illness onset. No symptoms or risks identified at this time. Initial Sepsis Screen: Does the patient meet any 2 criteria? No. Patient's initial sepsis screen is negative. Does the patient have a suspected source of infection? No. Patient's initial sepsis screen is negative. Risk Assessment: Do you want to hurt yourself or someone else? Patient reports no desire to harm self or others. Onset of symptoms was August 23, 2023. 12:48 Method Of Arrival: Ambulatory cm10 12:48 Acuity: GUANACO 3 cm10 Triage Assessment: 12:50 General: Appears in no apparent distress. comfortable, Behavior is calm, cooperative, cm10 appropriate for age. Pain: Complains of pain in chest. EENT: No deficits noted. Reports nasal congestion. Neuro: No deficits noted. Level of Consciousness is awake, alert, obeys commands, Oriented to person, place, time, situation, Gait is steady, Speech is normal. Cardiovascular: No deficits noted. Reports chest pain, Denies shortness of breath, Capillary refill < 3 seconds Patient's skin is warm and dry. Respiratory: No deficits noted. Reports cough that is non-productive, dry, Airway is patent Respiratory effort is even, unlabored, Respiratory pattern is regular, symmetrical. GI: No deficits noted. No signs and/or symptoms were reported involving the gastrointestinal system. : No deficits noted. No signs and/or symptoms were reported regarding the genitourinary system. Derm: No deficits noted. No signs and/or symptoms reported regarding the dermatologic system. Skin is intact, Skin is pink, warm \T\ dry. Musculoskeletal: No deficits noted. No signs and/or symptoms reported regarding the musculoskeletal system. Range of motion: intact in all extremities. 12:57 Respiratory: Breath sounds are clear bilaterally. cm10 Historical: - Allergies: 12:49 Nitrofurantoin Macrocrystal; cm10 12:49 Sulfa (Sulfonamide Antibiotics); cm10 - PMHx: 12:49 Hypertensive disorder; Hypothyroidism; Rheumatoid arthritis; cm10 - Immunization history:: Adult Immunizations up to date. - Social history:: Smoking status: Patient denies any tobacco usage or history of. Screenin:55 [facility] ED Fall Risk Assessment (Adult) History of falling in the last 3 months, cm10 including since admission No falls in past 3 months (0 pts) Confusion or Disorientation No (0 pts) Intoxicated or Sedated No (0 pts) Impaired Gait No (0 pts) Mobility Assist Device Used No (0 pt) Altered Elimination No (0 pt) Score/Fall Risk Level 0 - 2 = Low Risk Oriented to surroundings, Maintained a safe environment, Hourly rounding (assess needs \T\ fall precautionary measures) done. Abuse screen: Denies threats or abuse. Denies injuries from another. Nutritional screening: No deficits noted. Tuberculosis screening: No symptoms or risk factors identified. Vital Signs: 12:48 BP 150 / 64; Pulse 73; Resp 18 S; Temp 98.1; Pulse Ox 98% on R/A; Weight 74.84 kg (R); cm10 Height 5 ft. 1 in. (R); Pain 4/10; 12:48 Body Mass Index 31.18 (74.84 kg, 154.94 cm) cm10 12:48 Pain Scale: Adult cm10 ED Course: 12:33 Patient arrived in ED. im 12:34 Saad Smart MD is Attending Physician. ec2 12:49 Triage completed. cm10 12:50 Arm band placed on Patient placed in an exam room, on a stretcher. cm10 12:55 Patient has correct armband on for positive identification. Provided Education on: ER cm10 process and procedures. . 12:55 No provider procedures requiring assistance completed. Patient did not have IV access cm10 during this emergency room visit. Administered Medications: No medications were administered Medication: 12:55 VIS not applicable for this client. cm10 Outcome: 13:02 Discharge ordered by . ec2 13:11 Discharged to home ambulatory, cm10 13:11 Condition: good 13:11 Discharge instructions given to patient, Instructed on discharge instructions, follow up and referral plans. medication usage, Demonstrated understanding of instructions, follow-up care, medications, Prescriptions given X 2, 13:11 Patient left the ED. cm10 Signatures: Alexandra Mattson Clarissa, RN RN cm10 Saad Smart MD MD ec2 Corrections: (The following items were deleted from the chart) 12:56 12:48 Chief complaint: Patient states: Started feeling ill yesterday with cough, fever, cm10 congestion and chest pressure. Pt states that she took a home COVID test today and it was positive. cm10
--- NOTE | 2023-08-23 13:04 | EDPHYS ---
Physician Documentation [facility] Name: Flores Esparza Age: 78 yrs Sex: Female : 1945 Arrival Date: 08/23/2023 Time: 12:30 Bed IW2 Private MD: ED Physician Saad Smart HPI: 08/23 13:00 This 78 yrs old Female presents to ER via Ambulatory with complaints of COVID ec2 positive. 13:00 Patient arrives today for cough and cold symptoms. Patient reports that she tested at ec2 home positive for COVID. Reports no vomiting or diarrhea, denies any fevers, reports adequate p.o. intake. Reports a diagnosis of reactive airway disease and is on inhalers.. Historical: - Allergies: 12:49 Nitrofurantoin Macrocrystal; cm10 12:49 Sulfa (Sulfonamide Antibiotics); cm10 - PMHx: 12:49 Hypertensive disorder; Hypothyroidism; Rheumatoid arthritis; cm10 - Immunization history:: Adult Immunizations up to date. - Social history:: Smoking status: Patient denies any tobacco usage or history of. ROS: 13:00 Constitutional: as per hpi ec2 Exam: 13:00 Constitutional: GEN: NAD Head: atraumatic Eyes: EOMI Ears: External ears are ec2 normal. CV: regular rate LUNGS: no respiratory distress, no wheezes, no rales, no rhonchi ABD: non-distended SKIN: no evidence of rashes MSK: no evidence of trauma NEURO: moves all extremities equally Vital Signs: 12:48 BP 150 / 64; Pulse 73; Resp 18 S; Temp 98.1; Pulse Ox 98% on R/A; Weight 74.84 kg (R); cm10 Height 5 ft. 1 in. (R); Pain 4/10; 12:48 Body Mass Index 31.18 (74.84 kg, 154.94 cm) cm10 12:48 Pain Scale: Adult cm10 MDM: 13:00 Patient medically screened. ec2 13:00 Data reviewed: vital signs. ED course: Patient arrives today due to concern for cough ec2 and cold symptoms. Examination remarkable for well-appearing nontoxic individual is otherwise in no acute distress with a reassuring cardiopulmonary examination and reassuring vital signs. Will prescribe the patient Paxlovid and steroids given the patient's history of reactive airway disease and have her follow-up with her primary care doctor. Return precautions given. Administered Medications: No medications were administered Disposition Summary: 08/23/23 13:02 Discharge Ordered Notes: Location: Home ec2 Condition: Stable ec2 Diagnosis - SARS-associated coronavirus as the cause of diseases classified elsewhere ec2 Followup: ec2 - With: Private Physician - When: - Reason: Recheck today's complaints Discharge Instructions: - Discharge Summary Sheet ec2 - COVID-19 ec2 Forms: - Medication Reconciliation Form ec2 - Thank You Letter ec2 - Antibiotic Education ec2 - Prescription Opioid Use ec2 - Patient Portal Instructions ec2 - Leadership Thank You Letter ec2 Prescriptions: - Paxlovid 300 mg (150 mg x 2)-100 mg Oral Tablet, Dose Pack - take 1 dose pack ORAL route per package directions; 1 Pack; Refills: 0, Product ec2 Selection Permitted - dexamethasone 6 mg Oral tablet - take 1 tablet ORAL route daily; 10 tablet; Refills: 0, Product Selection ec2 Permitted Signatures: Anna Lezama RN RN cm10 Saad Smart MD MD ec2
[2023-08-23 13:39] VITALS: BP 150/64; TEMP 98.1; O2SAT 98
== END ==
LOC: ER 12:30
DX: U07.1 COVID-19 (principal); I10 Essential (primary) hypertension; Z88.2 Allergy status to sulfonamides; Z91.048 Other nonmedicinal substance allergy status
CPT/HCPCS: 99283

== ENCOUNTER → 2023-09-01 | Emergency (ER) | payer OTHER ==
[~2023-09-01] MED LIST: CALCIUM GLUCONATE 1 GM IVPB 1 GM/50 ML BAG IV ONE; POTASSIUM CL SA 10 MEQ TAB PO ONE
--- NOTE | 2023-09-01 11:58 | RAD REPORT ---
EXAM DESCRIPTION: CT - [id number] - 09/01/2023 11:42 am CLINICAL HISTORY: Trauma, head and neck injury. PAIN COMPARISON: <Comparisons> TECHNIQUE: Axial 5 mm thick images of the head were obtained. Axial 2 mm thick images of the cervical spine were obtained with sagittal and coronal reconstruction images generated and reviewed. All CT scans are performed using dose optimization technique as appropriate and may include automated exposure control or mA/KV adjustment according to patient size. FINDINGS: CT HEAD WITHOUT CONTRAST: No acute hemorrhage, hydrocephalus or extra-axial collection is identified.No areas of brain edema or midline shift. The paranasal sinuses and mastoids are clear.The calvarium is intact. CT CERVICAL SPINE WITHOUT CONTRAST: No fracture or subluxation.3 mm degenerative anterolisthesis C2 on 3. Multilevel degenerative change mid cervical levels with posterior decompression C3-6.No prevertebral soft tissues swelling is identi fied. IMPRESSION: No acute intracranial or cervical spine findings. Postoperative cervical spine noted with multilevel decompression.
[2023-09-01 12:04] LABS: Hematocrit 38.9 % (36.0-45.0); Lymphocytes % 15.6 % (15.3-44.8); MCV 97.1 fL (80-100); MPV 8.6 fL (7.6-11.3); Platelets 202 thou/uL (152-406)
[2023-09-01 12:20] LABS: Albumin 2.9 g/dL (3.4-5.0); Bilirubin Total 0.3 mg/dL (0.2-1.0); Magnesium 2.2 mg/dL (1.6-2.4); Potassium 3.2 mEq/L (3.5-5.1); Protein, Total 5.9 g/dL (6.4-8.2)
--- NOTE | 2023-09-01 12:50 | ER ---
Nurse's Notes [facility] Name: Flores Esparza Age: 78 yrs Sex: Female : 1945 Arrival Date: 09/01/2023 Time: 10:55 Bed 6 Private MD: Diagnosis: Neck swelling;Hypocalcemia;Hypokalemia Presentation: 09/01 11:03 Chief complaint: Patient states: she has chronic neck pressure, however the last few ap3 days the patient reports that the pressure has increased and that she has new onset swelling around her neck and shoulder area. patient reports her pain to be 8/10 on the pain scale. patient states as thought the pressure "is pushing my head forward". Coronavirus screen: At this time, the client does not indicate any symptoms associated with coronavirus-19. Ebola Screen: No symptoms or risks identified at this time. Initial Sepsis Screen: Does the patient meet any 2 criteria? No. Patient's initial sepsis screen is negative. Does the patient have a suspected source of infection? No. Patient's initial sepsis screen is negative. Risk Assessment: Do you want to hurt yourself or someone else? Patient reports no desire to harm self or others. Onset of symptoms is unknown. 11:03 Method Of Arrival: Ambulatory ap3 11:03 Acuity: GUANACO 3 ap3 Triage Assessment: 11:06 General: Appears in no apparent distress. Behavior is calm, cooperative, appropriate ap3 for age. Pain: Complains of pain in face and neck. Neuro: Reports head/neck pressure. Cardiovascular: Patient's skin is warm and dry. Respiratory: Airway is patent Respiratory effort is even, unlabored, Respiratory pattern is regular, symmetrical. Historical: - Allergies: 11:05 Nitrofurantoin Macrocrystal; ap3 11:05 Sulfa (Sulfonamide Antibiotics); ap3 - PMHx: 11:05 Hypertensive disorder; Hypothyroidism; Rheumatoid Arthritis; Cardiac PVC's (Rheumatoid ap3 Arthritis); - PSHx: 11:05 neck/spine (Rheumatoid Arthritis); ap3 - Immunization history:: Client reports receiving the 2nd dose of the Covid vaccine, Flu vaccine is up to date. - Social history:: Smoking status: Patient denies any tobacco usage or history of. Screenin:07 [facility] ED Fall Risk Assessment (Adult) History of falling in the last 3 months, ap3 including since admission No falls in past 3 months (0 pts). Abuse screen: Denies threats or abuse. Nutritional screening: No deficits noted. Tuberculosis screening: No symptoms or risk factors identified. Assessment: 11:57 General: Appears in no apparent distress. comfortable, Behavior is calm, cooperative, ko1 appropriate for age. Pain: Denies pain. Neuro: Reports headache pressure. Cardiovascular: No deficits noted. Respiratory: No deficits noted. GI: No deficits noted. : No deficits noted. EENT: No deficits noted. Derm: No deficits noted. Musculoskeletal: No deficits noted. Vital Signs: 11:03 BP 161 / 57; Pulse 75; Resp 18; Temp 98.2(O); Pulse Ox 99% ; Weight 74.84 kg; Height 5 ap3 ft. 1 in. ; Pain 8/10; 11:57 BP 127 / 58; Pulse 78; Resp 16; Pulse Ox 100% ; ko1 13:30 BP 132 / 68; Pulse 72; Resp 16; Pulse Ox 98% ; ko1 11:03 Body Mass Index 31.18 (74.84 kg, 154.94 cm) ap3 11:03 Pain Scale: Adult ap3 ED Course: 10:59 Patient arrived in ED. mg5 11:05 Triage completed. ap3 11:07 Arm band placed on left wrist. ap3 11:15 Pablo Dutta MD is Attending Physician. rt 11:15 Patient has correct armband on for positive identification. Bed in low position. Call ap3 light in reach. Side rails up X 1. Pulse ox on. NIBP on. Warm blanket given. 11:25 Bethany Mack, NERISSA is Primary Nurse. ko1 11:41 CT Head C Spine In Process Unspecified. EDMS 11:53 Inserted saline lock: 22 gauge in right antecubital area, using aseptic technique. ko1 Blood collected. 11:56 Magnesium Sent. ko1 11:56 CMP Sent. ko1 11:56 CBC with Diff Sent. ko1 13:30 Provided Education on: ns. ko1 13:30 No provider procedures requiring assistance completed. IV discontinued, intact, ko1 bleeding controlled, No redness/swelling at site. Pressure dressing applied. Administered Medications: 12:45 Drug: Calcium Gluconate IVPB 1 grams IVPB once over 30 mins; (mix in NS 100 mL) Route: ko1 IVPB; Infused Over: 30 mins; Site: right antecubital; 12:45 Drug: Potassium Chloride PO 40 mEq PO once Route: PO; ko1 Medication: 13:30 VIS not applicable for this client. ko1 Outcome: 12:49 Discharge ordered by . rt 13:31 Discharged to home ambulatory, ko1 13:31 Condition: stable 13:31 Discharge instructions given to patient, Instructed on discharge instructions, follow up and referral plans. Demonstrated understanding of instructions, follow-up care, 13:32 Patient left the ED. ko1 Signatures: Dispatcher [employer] EDMS Marie Lockwood RN RN ap3 Bethany Mack RN RN ko1 Pablo Dutta MD MD rt Alejandra Cortez mg5
--- NOTE | 2023-09-01 12:50 | EDPHYS ---
Physician Documentation [facility] Name: Flores Esparza Age: 78 yrs Sex: Female : 1945 Arrival Date: 09/01/2023 Time: 10:55 Bed 6 Private MD: ED Physician Pablo Dutta HPI: 09/01 14:23 This 78 yrs old Female presents to ER via Ambulatory with complaints of Head Pressure, rt Swelling. 14:23 Patient presents to the ED with reported neck pain, pressure, swelling. She does have rt chronic swelling sensation to her neck as well as to her head. States that is worsened somewhat over the past few days. 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 She denies other acute complaints at this time, symptoms are moderate in severity, no other aggravating or alleviating factors.. Historical: - Allergies: 11:05 Nitrofurantoin Macrocrystal; ap3 11:05 Sulfa (Sulfonamide Antibiotics); ap3 - PMHx: 11:05 Hypertensive disorder; Hypothyroidism; Rheumatoid Arthritis; Cardiac PVC's (Rheumatoid ap3 Arthritis); - PSHx: 11:05 neck/spine (Rheumatoid Arthritis); ap3 - Immunization history:: Client reports receiving the 2nd dose of the Covid vaccine, Flu vaccine is up to date. - Social history:: Smoking status: Patient denies any tobacco usage or history of. ROS: 14:23 Constitutional: Negative for fever, chills, and weight loss, Cardiovascular: Negative rt for chest pain, palpitations, and edema, Respiratory: Negative for shortness of breath, cough, wheezing, and pleuritic chest pain, Abdomen/GI: Negative for abdominal pain, nausea, vomiting, diarrhea, and constipation, MS/Extremity: Negative for injury and deformity, Neuro: Negative for headache, weakness, numbness, tingling, and seizure, Psych: Negative for depression, anxiety, suicide ideation, homicidal ideation, and hallucinations, 14:23 Neck: Positive for pain at rest, swelling, 14:23 Neuro: Positive for headache, Negative for altered mental status, Exam: 14:23 Constitutional: This is a well developed, well nourished patient who is awake, alert, rt and in no acute distress. Head/Face: Normocephalic, atraumatic. Chest/axilla: Normal chest wall appearance and motion. Nontender with no deformity. No lesions are appreciated. Cardiovascular: Regular rate and rhythm with a normal S1 and S2. No gallops, murmurs, or rubs. Normal PMI, no JVD. No pulse deficits. Respiratory: Lungs have equal breath sounds bilaterally, clear to auscultation and percussion. No rales, rhonchi or wheezes noted. No increased work of breathing, no retractions or nasal flaring. Abdomen/GI: Soft, non-tender, with normal bowel sounds. No distension or tympany. No guarding or rebound. No evidence of tenderness throughout. Skin: Warm, dry with normal turgor. Normal color with no rashes, no lesions, and no evidence of cellulitis. MS/ Extremity: Pulses equal, no cyanosis. Neurovascular intact. Full, normal range of motion. Neuro: Awake and alert, GCS 15, oriented to person, place, time, and situation. Cranial nerves II-XII grossly intact. Motor strength 5/5 in all extremities. Sensory grossly intact. Cerebellar exam normal. Normal gait. Psych: Awake, alert, with orientation to person, place and time. Behavior, mood, and affect are within normal limits. 14:23 Neck: Range of motion at neck, mild swelling without erythema to the left anterior neck, no palpable lymphadenopathy, Vital Signs: 11:03 BP 161 / 57; Pulse 75; Resp 18; Temp 98.2(O); Pulse Ox 99% ; Weight 74.84 kg; Height 5 ap3 ft. 1 in. ; Pain 8/10; 11:57 BP 127 / 58; Pulse 78; Resp 16; Pulse Ox 100% ; ko1 13:30 BP 132 / 68; Pulse 72; Resp 16; Pulse Ox 98% ; ko1 11:03 Body Mass Index 31.18 (74.84 kg, 154.94 cm) ap3 11:03 Pain Scale: Adult ap3 MDM: 11:19 Patient medically screened. rt 14:23 Differential Diagnosis RA, renal dysfunction, electrolyte disturbance. Data reviewed: rt vital signs, nurses notes, lab test result(s), radiologic studies. Consideration of Admission/Observation Escalation of care including admission/observation considered. Patient's calcium corrects to 7.4 when corrected for albumin, does not require admission for this. Will replete electrolytes. 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 I considered the following discharge prescriptions or medication management in the emergency department Medications were administered in the Emergency Department. See MAR. Independent interpretation of the following test(s) in the Emergency Department CT Scan: My interpretation is No intracranial hemorrhage seen on interpretation of CT scan images. Counseling: I had a detailed discussion with the patient and/or guardian regarding the historical points, exam findings, and any diagnostic results supporting the discharge/admit diagnosis, lab results, radiology results, the need for outpatient follow up, to return to the emergency department if symptoms worsen or persist or if there are any questions or concerns that arise at home. 09/01 11:32 Order name: CBC with Diff; Complete Time: 12:22 rt 09/01 11:32 Order name: CMP; Complete Time: 12:22 rt 09/01 11:32 Order name: Magnesium; Complete Time: 12:22 rt 09/01 11:32 Order name: CT Head C Spine; Complete Time: 12:00 rt Administered Medications: 12:45 Drug: Calcium Gluconate IVPB 1 grams IVPB once over 30 mins; (mix in NS 100 mL) Route: ko1 IVPB; Infused Over: 30 mins; Site: right antecubital; 12:45 Drug: Potassium Chloride PO 40 mEq PO once Route: PO; ko1 Disposition Summary: 09/01/23 12:49 Discharge Ordered Notes: Location: Home rt Problem: new rt Symptoms: are unchanged rt Condition: Stable rt Diagnosis - Neck swelling rt - Hypocalcemia rt - Hypokalemia rt Followup: rt - With: Private Physician - When: 5 - 6 days - Reason: Discharge Instructions: - Discharge Summary Sheet rt - Hypocalcemia, Adult rt - Hypokalemia rt Forms: - Medication Reconciliation Form rt - Thank You Letter rt - Antibiotic Education rt - Prescription Opioid Use rt - Patient Portal Instructions rt - Leadership Thank You Letter rt Signatures: Dispatcher [employer] Marie Burr RN RN ap3 Bethany Mack RN RN ko1 Pablo Dutta MD MD rt
[2023-09-01 15:09] VITALS: BP 132/68; TEMP 98.2; O2SAT 98
== END ==
LOC: ER 10:55
DX: R22.1 Localized swelling, mass and lump, neck (principal); E83.51 Hypocalcemia; E87.6 Hypokalemia; R51.9 Headache, unspecified; I10 Essential (primary) hypertension; Z88.2 Allergy status to sulfonamides; Z88.8 Allergy status to other drugs, medicaments and biological substances
CPT/HCPCS: 85025; 36415; 83735; 80053; 70450; 72125; J0612; 96374; 99284